=== PATIENT | female | born 1950 | race Caucasian/White ===

== ENCOUNTER 2018-04-12 13:11 | Observation (INO) | payer MEDICARE ==
--- OUTSIDE RECORDS SUMMARY | 2018-04-12 13:40 | XMS REPORT | Continuity of Care Document ---
:1950 External Reference #:[id number] Author Name Aziza Norton M.D. 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 Active thigh Onset: 11/09/2010 Essential hypertension Emilia Martínez M.D. Active Onset: 11/09/2010 Pure hypercholesterolemia Emilia Martínez M.D. Active Onset: 11/09/2010 Vitamin D deficiency Emilia Martínez M.D. Active Onset: 11/09/2010 Tobacco user Emilia Martínez M.D. Active Onset: 11/09/2010 Moderate recurrent major depression Emilia Martínez M.D. Active Onset: 11/09/2010 Intrinsic asthma without status Emilia Martínez M.D. Active asthmaticus Onset: 02/10/2011 Arthralgia of the lower leg Emilia Martínez M.D. Active Onset: 12/27/2011 Colitis, enteritis and Aziza Norton M.D. Active gastroenteritis presumed infectious Onset: 04/15/2015 Acute sinusitis Clifford Alford M.D. Active Onset: 04/15/2015 Bronchitis Clifford Alford M.D. Active Onset: 04/15/2015 Hyperlipidemia Clifford Alford M.D. Active Onset: 05/31/2015 Infectious colitis, enteritis and Aziza Norton M.D. Active gastroenteritis Onset: 06/28/2016 Mild persistent asthma Aziza Norton M.D. Active Onset: 08/02/2016 Gastroesophageal reflux disease Aziza Norton M.D. Active Onset: 08/02/2016 Mixed hyperlipidemia Aziza Norton M.D. Active Onset: 04/12/2018 Gastrointestinal infection Aziza Norton M.D. Active Family History Date Family Member(s) Observation Comments General No fam hx lung, colon CA. Father 82 dt emphysema, smoker. Mother 80. NE. CAD. DM. HTN. Number of Children 2 daughters. 1 in [place], 1 in [place]- DM, s/p bariatric surgery,bipolar. Number of Siblings 3/5 surviving sisters. 2 brothers live in [place], [facility]. First Sister age 68. breast cancer Second Sister dt Brain tumor . Third Sister lives near [place]. Fourth Sister healthy. Lives in [place]. Fifth Sister healthy. Lives in [place]. Social History Type Date Description Comments Sex Unknown Marital Status Patient is . 2003 due to myeloma. Living Situation [place] daughter lives her and 2 granddaughters (youngest daughters kids) patient has custody of the 2 girls. Youngest in granddaughter at [employer]. 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 Tobacco Use Start: Unknown End: Former Cigarette Smoker quit as of July or Unknown August 2017. 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 Tobacco Use Start: Unknown End: Patient is a former Unknown smoker Smoking Status Reviewed: 04/12/18 Patient is a former smoker Exercise Exercises regularly. Type/Frequency Current Uses treadmill weekly. walks a lot, mows lawn with a push mower. some weight lifting (5#)and stretching at home. Allergies, Adverse Reactions, Alerts Date Description Reaction Status Severity Comments 05/19/2009 Tobramycin Active itchy, painful Medications Medication Date Status Form Strength Qnty SIG Indications Ordering Provider Escitalopram 09/21 Active Tablets 5mg 30tab 1 by mouth F17.210 Aziza L. Oxalate s every day Mickie Norton. Diclofenac 09/21 Active Gel 3% 100gm apply small M19.031 Aziza Muniz Sodium amount twice Cierra, daily to M.D. right wrist Advair Diskus 08/02 Active Aerosol 250-50mcg 60uni inhale up to J45.30 Aziza LNallely /2016 /Dose ts two puff by Cierra, mouth twice M.D. daily samples Omeprazole 08/02 Active Capsules 40mg 30cap take [address] miller capsule by [place], mouth once M.D. daily Ketoconazole 06/28 Active Cream 2% 60uni apply thin 110.5 Aziza L. ts layer twice Cierra, a day to M.D. affected area. Hydrocortisone 06/28 Active Cream 0.2% 30gm apply to R23.8 Aziza LNallely Valerate affected Cierra, area twice a M.D. day as needed Vitamin E 05/26 Active Capsules 1000Unit 1 po qd Vitamin D-400 05/26 Active Tablets 400Unit 4 po once daily Calcium 500 + 05/26 Active Tablets 500-600mg 1 po qd Unknown -Unit Famotidine 05/26 Active Tablets 40mg 90tab 1 po daily K21.9 Nehal s at bedtime Kelsie, [employer] Tums 05/26 Active Chewtabs 500mg 90uni 1-2 chew K21.9 Nehal ts tabs every 3 Kelsie, hours as [employer] needed for breakthrough heartburn Budesonide 09/17 Active Caps 3mg 90cap take 3 A09 Sukhi F. Part s capsules by Shallish, mouth once M.D. daily Aspirin Adult 01/05 Active Chewtabs 81mg 1 by mouth Family Low Strength /2013 daily. [facility] Lisinopril 10/01 Active Tablets 5mg 30tab 1 by mouth Aziza L. /2012 s every day Rhina Norton Atorvastatin 02/10 Active Tablets 80mg 90tab take 1 Aziza Muniz Calcium s tablet once Cierra, daily M.D. Multi Vitamin 11/09 Active Tablets Unknown Womens Plus Iron Aleve Active Capsules 220mg 2 po bid Unknown Tylenol Active Tablets 650mg 2 po bid Unknown Arthritis Pain ER Zyrtec Allergy Active Capsules 10mg 1 by mouth Unknown every day Nicotine 09/21 Hx Patches 21mg/24HR 28uni 1 patch F17.210 Aziza Muniz Transdermal 24HR ts topically Cierra System - per day x 1 M.D. 04/12 month. Mupirocin 03/21 Hx Ointment 2% 22gm apply small J31.0 Aziza Muniz amount both Cierra, - nares twice M.D. 09/21 daily. Amoxicillin 11/15 Hx Tablets 875mg 20tab 1 tab twice J01.90 Aziza LNallely s a day x 10 Cierra, - days M.D. 03/21 Amoxicillin 05/26 Hx Tablets 875mg 14tab 1 tab twice J01.90 Nehal /2017 s a day x 7 Kelsie, - days [employer] 06/28 Vitamin D 06/02 Hx Capsules 54949Ydqp 12cap take 1 Aziza Muniz (Ergocalciferol s capsule by Cierra, ) - mouth once M.D. 05/25 weekly for 12 weeks. Zostavax 05/30 Hx Solution 28741Gdp/ 1unit in ject sq Aziza Muniz /2015 Rec 0.65ML s pudt Cierra, - M.D. 05/25 Acetaminophen-C Hx Tablets 300-30mg 60tab 1-2 by mouth M25.561 Aziza Muniz odeine #3 /2015 s at at Cierra, - bedtime for M.D. 05/25 pain /2016 Physical Hx evaluate and M25.561 Aziza Muniz Therapy /2015 treat r knee Cierra, - pain M.D. 05/25 Levofloxacin 04/15 Hx Tablets 500mg 10tab 1 by mouth J01.80 Clifford Juan. /2015 s every day Rocío, - M.D. 05/25 Levofloxacin 08/27 Hx Tablets 500mg 7tabs 1 by mouth 461.9 Victor Manuel A. /2014 every day Vinh - M.D. 09/03 Cefdinir 05/04 Hx Capsules 300mg 20cap 1 by mouth 461.8 Aziza L. /2014 s twice daily Cierra, - for 10days M.D. 07/03 Ketoconazole 05/04 Hx Cream 2% 60uni apply thin 110.5 Aziza L. ts layer twice Cierra, - a day to M.D. 05/25 area. Budesonide ER 05/04 Hx Caps ER 3mg 180ca 3 by mouth A09 Aziza LNallely /2014 24HR ps once daily Cierra - M.D. 09/17 [place] 3 01/05 Hx Capsules 1000mg 1-2 by mouth every day [facility] 07/03 Of Azithromycin 01/05 Hx Tablets 250mg 12tab 2 by mouth 461.1 Aziza L. /2013 s today. 1 by Cierra, - mouth daily M.D. 05/04 x 4 Repeat as necessary Azithromycin 10/07 Hx Tablets 250mg 6tabs 2 po today. Aziza L. /2013 1 po daily x Cierra, - 4 M.D. 01/05 Augmentin 09/29 Hx Tablets 875-125mg 20tab 1 po bid 786.2 Aziza L. s with yogurt Cierra, - or kefir. M.D. 01/05 Ventolin HFA 06/05 Hx Aerosol 108(90Bas 1inha 2 puffs bid 786.2 e) ler x 3 weeks; Kelsie, - mcg/Act also 2 puffs [employer] 04/15 daily to prep for physical exertion Cheratussin ac 06/05 Hx Syrup 100-10mg/ 150ml 5 ml every 786.2 Nehal /2014 5ML 12 hrs prn Kelsie - cough [employer] 09/29 Azithromycin 06/05 Hx Tablets 250mg 9tabs 2 tabs po 786.2 Nehal today, 2 Kelsie, - tabs po [employer] 09/29 tomorrow, then 1 tab po daily x 5 days Omeprazole 04/29 Hx Capsules 20mg 60cap 1 by mouth K21.[address] miller qd- twice a Cierra - day Rhina 08/02 Proair HFA 03/05 Hx Aerosol 108(90Bas 1unit 2 puffs Arleen e) s every 4 Andrade, - mcg/Act hours as [employer] 08/27 needed for cough Lisinopril 09/13 Hx Tablets 10mg 90tab 1 po qd Aziza Muniz Asif Zapata M.D. 10/01 Lisinopril/Hydr 08/09 Hx Tablets 10-12.5mg 45tab Take 1/2 Tab Aziza Muniz ochlorothiazide s Daily Asif Norton M.D. 09/13 Clarithromycin 06/06 Hx Tablets 500mg 20tab 461.8 Aziza Muniz Asif Zapata M.D. 06/06 Meclizine HCL 06/06 Hx Tablets 12.5mg 60tab 1-2 po qid 386.11 Aziza Muniz Asif Zapata M.D. 09/29 Sulfamethoxazol 06/06 Hx Tablets 800-160mg 28tab 1 po bid x 461.8 Aziza Muniz e/ KELLEY Duval.Erick 09/29 Budesonide 12/26 Hx Caps ER 3mg 180ca take 3 009.1 Aziza Muniz 24HR ps capsules Cierra - once daily M.DNallely 05/04 Off Work 11/06 Hx May return Aziza Muniz 11/06-11/09/2011. to work Asif Norton 11/12/2011 M.Erick 12/26 Ondansetron HCL 11/05 Hx Tablets 4mg 1 po q6-8 Family hrs prn for Medicine - nausea/vomit [facility] 12/26 [facility] Hydrocodone/William 11/05 Hx Tablets 5-500mg 60tab 1 po q4-6h Nehal taminophen s prn pain Kelsie, - istop ref# [employer] 09/29 [id number] Avelox 11/05 Hx Tablets 400mg 1 po qd [facility] 06/06 [facility] Off Work Note. 11/05 Hx return to 486 Aziza McmanusNallely Off Work 11/06- work on Cierra - 11/12/2011. Rhina 11/06 Proair HFA 02/10 Hx Aerosol 108(90Bas 1unit 2 puffs Emilia Nallely e) mcg/ac s every 4 Tanya - hours as Rhina 03/05 needed cough Ergocalciferol 02/10 Hx Capsules 21488Jlsd 12cap one po 268.9 Aziza LNallely s weekly Asif Norton M.D. 05/04 Atorvastatin 02/10 Hx Tablets 80mg 30tab 1 po daily 401.9 Emilia Gordon Calcium s Asif Martínez M.D. 12/26 Lisinopril/Hydr 01/29 Hx Tablets 10-12.5mg 90tab Take 1 Emilia M. ochlorothiazide s Tablet By Asif Martínez M.D. 02/10 Budesonide 01/13 Hx Caps ER 3mg 270ca 3 po qd Emilia Gordon 24HR ps Asif Martínez M.D. 12/26 Azithromycin 12/02 Hx Tablets 250mg 13tab take 2 461.9 s tablets by Andrade - mouth x 3d [employer] 02/10 then take tablet daily for next 7 days Robitussin A-C 12/02 Hx 4Oz 1-2 tsp po 461.9 q4h prn Andrade, - cough [employer] 02/10 Ventolin HFA 12/02 Hx Aerosol 108(90Bas 1unit 2 puffs 493.10 e) mcg/ac s qd-qid Andrade, - [employer] 02/10 Chantix Starter 09/14 Hx 1Pack use as 305.1 Emilia M. directed and Tanya - call for M.DNallely 11/05 medication Zithromax 03/04 Hx Tablets 250mg 1tabs 2 po qd 466.0 Emilia M. today , then Tanya - 1 po qd M.DNallely 03/13 times Advair Diskus 03/04 Hx Aerosol 250-50mcg 1unit 1 puff bid 466.0 Emilia M. /Dose s Asif Martínez M.D. 03/04 Flovent HFA 03/04 Hx Aerosol 44mcg/Act 10.60 2 puff bid 466.0 [facility]. 0gm Asif Martínez M.D. 02/10 493.10 Lipitor 01/13/2010 - Hx Tablets 80mg 90tabs 1 po qd Emilia M. 02/10/2011 Rhina Martínez Nicotine 12/31/2009 - Hx Patches 24HR 7mg/24H 28units apply to 30 Emilia Heart. 05/06/2010 R skin in 5. Rhina Martínez the 1 morning and remove at bedtime Prilosec 07/14/2009 - Hx Capsules DR 20mg 60caps 1 po bid Esperanza 12/31/2009 Arnoldo, Charles-C Note 05/19/2009 - Hx pt was [facility] today, will return to work 05/20/09 Ciprofloxacin HCL 05/17/2009 - Hx Solution 0.3% 5ml 2 gtts ou 37 Esperanza 05/26/2009 q 4 hours 2. Arnoldo, until 00 [facility]-[place] clear then 1 more day , do not exceed 1 week use Patanol 05/17/2009 - Hx Solution 0.1% 5ml 2 gtts in 37 Emilia . 05/06/2010 affected 2. Rhina Martínez eye bid 00 prn Guafenesin 05/17/2009 - Hx 600mg 30units 2 po bid 38 Emilia Heart. 07/14/2009 2. Rhina Martínez 9 Tobrex 05/13/2009 - Hx Solution 0.3% 5ml 2 gtts 37 Lisbeth 05/17/2009 both eyes 2. Guzman, q 4 hrs x 00 [facility] 4-5 days Out Of Work 05/13/2009 - Hx out of Lisbeth 05/20/2009 work from Guzman, 05/11 [facility] through 05/16 due to illness; may return 05/17/09 Cortisporin Otic 05/10/2009 - Hx Suspension 1Bottle 4 drops in 38 Emilia Heart 07/14/2009 right ear 2. Rhina Martínez qid for 9 one week Amoxicillin 05/10/2009 - Hx Tablets 500mg 21tabs 1 po tid 38 Emilia 07/14/2009 for 7 days 2Nallely Martínez M.D. 9 Note For Work 05/10/2009 - Hx pt. is ill 38 [facility] 05/06/2010 and was 2Nallely Martínez M.D. seen in 9 the office today, she will follow up in two days and is not to work until then Lisinopril-Hydroc 05/10/2009 - Hx Tablets 10-12.5 45tabs 1/2 tablet 40 Aziza L. hlorothiazide 09/13/2012 mg po qd 1. Al Norton M.D. Diovan HCT 04/27/2009 - Hx Tablets 160-12. 30tabs 1 po daily 71 Emilia . 11/09/2010 5mg 9. Rhina Martínez 46 Flector Patch 12/15/2008 - Hx 30units apply to 71 Emilia . 05/06/2010 painful 9. Rhina Martínez area bid 46 Amoxicillin 10/15/2008 - Hx Tablets 500mg 30tabs 1 tid x 10 46 Lisbeth 10/25/2008 days 5. Guzman, 8 [facility] Abilify 08/07/2008 - Hx Tablets 5mg 30tabs 1/2 po qd Family 05/06/2010 [facility] Ergocalciferol 08/07/2008 - Hx Capsule 50,000U 12caps one po 26 Emilia Heart. 02/10/2011 nits weekly 8Nallely Martínez M.D. 9 Compression 06/23/2008 - Hx 14mm HG 2units to knee, 71 Emilia Gordon Stockings 07/14/2009 wear as 9Nallely Martínez M.D. needed 46 Entocort Ec - Hx Caps ER 24HR 3mg Q Am Unknown 02/10/2011 Diovan HCT - Hx Tablets 160/25m 90tabs 1 po qd Emilia Nallely 04/27/2009 oleg Martínez M.D. Citalopram - Hx Tablets 40mg 1 1/2 PO Unknown Hydrobromide 05/06/2010 qd Loperamide HCL - Hx Capsules 2mg 2 Q Am Unknown 11/09/2010 Diclofenac Sodium - Hx Tablets DR 75mg 1 PO bid Unknown 10/15/2008 Nexium - Hx Packet 40mg 1 Cup 2X Unknown 05/10/2009 Day Lipitor - Hx Tablets 40mg 90tabs [facility]2010 Rhina Martínez Albuterol Sulfate - Hx Powder 1units 2 puffs q Emilia MNallely 12/05/2010 4hrs prn Rhina Martínez Vitamin D - Hx Unknown 02/10/2011 Calcium 600 With - Hx Chewtabs 600-400 1 po qd Unknown Vitamin D 08/27/2014 mg-Unit [place]-3 Krill Oil - Hx Capsules 300mg 2 by mouth Unknown 05/25/2016 every day Immunizations CPT Code Status Date Vaccine Lot # [id number] Given 12/05/2017 High-Dose, Influenza Virus Vacccine-fluzone 65 [id number] and older 34196 Given 11/15/2016 High-Dose, Influenza Virus Vacccine-fluzone 65 [id number] and older 62701 Given 06/03/2015 Zostivax [id number] Given 04/26/2015 Tdap Tetanus, W Pertussis [id number] 81503 Given 11/16/2014 Influenza Vac, Quadrivalent, Slit Virus, Im [id number] 99612 Given 11/16/2014 Pneumococcal Conjugate Vacc-13 [id number] 56415 Given 01/05/2014 Influenza Vac, Quadrivalent, Slit Virus, Im [id number] 73440 Given 03/05/2013 Preservative free flu 3 yrs+ and older [id number] 62661 Given 12/27/2011 Pneumococcal Immunization [id number] 56005 Given 12/27/2011 DO Not Use Split Influenza Virus Vaccine [id number] 36421 Given 11/09/2010 DO Not Use Split Influenza Virus Vaccine [id number] 06588 Given 12/31/2009 DO Not Use Split Influenza Virus Vaccine [id number] Vital Signs Date Vital Result Comment 04/12/2018 10:21am BP Systolic 120 mmHg BP Diastolic 70 mmHg Heart Rate 72 /min Body Temperature 98.0 F Respiratory Rate 18 /min Weight 189.00 lb 02/01/2018 12:01pm BP Systolic 132 mmHg BP Diastolic 76 mmHg Heart Rate 60 /min Body Temperature 97.5 F Height 61 inches 5'1" Weight 182.00 lb BMI (Body Mass Index) 34.4 kg/m2 12/05/2017 12:11pm BP Systolic 158 mmHg BP Diastolic 80 mmHg Heart Rate 60 /min Body Temperature 97.9 F Height 61 inches 5'1" Weight 179.12 lb BMI (Body Mass Index) 33.8 kg/m2 11/08/2017 11:16am BP Systolic 130 mmHg BP Diastolic 78 mmHg Heart Rate 66 /min Body Temperature 97.9 F Respiratory Rate 18 /min Height 61 inches 5'1" Weight 174.00 lb BMI (Body Mass Index) 32.9 kg/m2 09/21/2017 9:42am BP Systolic 122 mmHg BP Diastolic 82 mmHg Heart Rate 60 /min Body Temperature 98.1 F Height 61 inches 5'1" Weight 170.00 lb BMI (Body Mass Index) 32.1 kg/m2 07/19/2017 9:06am BP Systolic 126 mmHg BP Diastolic 84 mmHg Heart Rate 48 /min Body Temperature 97.9 F Respiratory Rate 16 /min Height 61 inches 5'1" Weight 170.00 lb BMI (Body Mass Index) 32.1 kg/m2 03/21/2017 11:30am BP Systolic 138 mmHg BP Diastolic 92 mmHg Heart Rate 54 /min Body Temperature 98.1 F Height 61 inches 5'1" Weight 169.00 lb BMI (Body Mass Index) 31.9 kg/m2 11/15/2016 12:08pm BP Systolic 118 mmHg BP Diastolic 64 mmHg Heart Rate 48 /min Body Temperature 98.6 F Respiratory Rate 16 /min Height 61 inches 5'1" Weight 162.12 lb BMI (Body Mass Index) 30.6 kg/m2 08/02/2016 11:03am BP Systolic 120 mmHg BP Diastolic 70 mmHg Heart Rate 60 /min Body Temperature 98.1 F Respiratory Rate 18 /min Height 61 inches 5'1" Weight 170.00 lb BMI (Body Mass Index) 32.1 kg/m2 06/28/2016 8:58am BP Systolic 120 mmHg BP Diastolic 70 mmHg Heart Rate 80 /min Body Temperature 98.0 F Respiratory Rate 18 /min Height 61 inches 5'1" Weight 170.00 lb BMI (Body Mass Index) 32.1 kg/m2 05/26/2016 9:07am BP Systolic 124 mmHg BP Diastolic 88 mmHg Heart Rate 54 /min Body Temperature 97.9 F Respiratory Rate 16 /min O2 % BldC Oximetry 98 % Height 61 inches 5'1" Weight 172.38 lb BMI (Body Mass Index) 32.6 kg/m2 05/31/2015 12:47pm BP Systolic 130 mmHg BP Diastolic 68 mmHg Heart Rate 56 /min Body Temperature 97.5 F Respiratory Rate 16 /min Height 61 inches 5'1" Weight 173.25 lb BMI (Body Mass Index) 32.7 kg/m2 04/26/2015 5:55pm BP Systolic 146 mmHg BP Diastolic 60 mmHg Heart Rate 56 /min Body Temperature 97.9 F Respiratory Rate 16 /min Height 61 inches 5'1" Weight 177.12 lb BMI (Body Mass Index) 33.5 kg/m2 04/15/2015 9:54am BP Systolic 124 mmHg BP Diastolic 60 mmHg Heart Rate 56 /min Body Temperature 97.1 F Respiratory Rate 18 /min Height 61 inches 5'1" Weight 176.25 lb BMI (Body Mass Index) 33.3 kg/m2 11/16/2014 6:30pm BP Systolic 116 mmHg BP Diastolic 66 mmHg Heart Rate 56 /min Body Temperature 98.5 F Respiratory Rate 16 /min Height 61 inches 5'1" Weight 179.25 lb BMI (Body Mass Index) 33.9 kg/m2 10/12/2014 10:44am BP Systolic 120 mmHg BP Diastolic 70 mmHg Heart Rate 68 /min Body Temperature 98.5 F Respiratory Rate 18 /min Height 61 inches 5'1" Weight 186.00 lb BMI (Body Mass Index) 35.1 kg/m2 08/27/2014 7:04pm BP Systolic 140 mmHg BP Diastolic 80 mmHg Heart Rate 52 /min Body Temperature 98.3 F Respiratory Rate 16 /min O2 % BldC Oximetry 98 % Height 61 inches 5'1" Weight 190.00 lb BMI (Body Mass Index) 35.9 kg/m2 07/03/2014 12:19pm BP Systolic 126 mmHg BP Diastolic 64 mmHg Heart Rate 56 /min Body Temperature 98.4 F Respiratory Rate 16 /min Weight 194.50 lb 05/04/2014 9:04am BP Systolic 130 mmHg BP Diastolic 70 mmHg Heart Rate 58 /min Body Temperature 97.4 F Respiratory Rate 20 /min Height 61 inches 5'1" Weight 194.00 lb BMI (Body Mass Index) 36.7 kg/m2 01/05/2014 6:45pm BP Systolic 130 mmHg BP Diastolic 80 mmHg Heart Rate 56 /min Body Temperature 96.5 F Respiratory Rate 16 /min Height 60.5 inches 5'0.50" Weight 191.00 lb BMI (Body Mass Index) 36.7 kg/m2 09/29/2013 7:01pm BP Systolic 114 mmHg BP Diastolic 60 mmHg Heart Rate 60 /min Body Temperature 99.3 F Respiratory Rate 16 /min Height 60.5 inches 5'0.50" Weight 182.50 lb BMI (Body Mass Index) 35.1 kg/m2 06/05/2013 5:33pm BP Systolic 114 mmHg BP Diastolic 70 mmHg Heart Rate 60 /min Body Temperature 98.5 F Height 60.5 inches 5'0.50" Weight 181.12 lb BMI (Body Mass Index) 34.8 kg/m2 04/29/2013 11:26am BP Systolic 140 mmHg BP Diastolic 70 mmHg Heart Rate 68 /min Body Temperature 97.6 F Respiratory Rate 16 /min Height 60.5 inches 5'0.50" Weight 173.00 lb BMI (Body Mass Index) 33.2 kg/m2 12/05/2012 5:49pm BP Systolic 100 mmHg BP Diastolic 70 mmHg Heart Rate 60 /min Body Temperature 98.0 F Height 60.5 inches 5'0.50" Weight 179.25 lb BMI (Body Mass Index) 34.4 kg/m2 09/26/2012 3:18pm BP Systolic 100 mmHg BP Diastolic 60 mmHg Heart Rate 60 /min Height 60.5 inches 5'0.50" Weight 173.00 lb BMI (Body Mass Index) 33.2 kg/m2 06/06/2012 12:09pm BP Systolic 108 mmHg BP Diastolic 60 mmHg Heart Rate 56 /min Body Temperature 98.4 F Respiratory Rate 16 /min Height 60.5 inches 5'0.50" Weight 164.38 lb BMI (Body Mass Index) 31.6 kg/m2 12/27/2011 10:06am BP Systolic 110 mmHg BP Diastolic 60 mmHg Heart Rate 60 /min Height 60.5 inches 5'0.50" Weight 154.00 lb BMI (Body Mass Index) 29.6 kg/m2 Right Visual Acuity Distance 20/30 Corrected Left Visual Acuity Distance 20/25 11/06/2011 6:12pm BP Systolic 118 mmHg BP Diastolic 60 mmHg Heart Rate 78 /min Body Temperature 99.7 F Height 60.5 inches 5'0.50" Weight 157.00 lb BMI (Body Mass Index) 30.2 kg/m2 05/26/2011 10:42am BP Systolic 114 mmHg BP Diastolic 64 mmHg Heart Rate 60 /min Body Temperature 98.6 F Height 60.5 inches 5'0.50" Weight 173.00 lb BMI (Body Mass Index) 33.2 kg/m2 02/10/2011 10:20am BP Systolic 124 mmHg BP Diastolic 68 mmHg Heart Rate 60 /min Body Temperature 98.2 F Height 60.5 inches 5'0.50" Weight 185.00 lb BMI (Body Mass Index) 35.5 kg/m2 12/02/2010 5:07pm BP Systolic 118 mmHg BP Diastolic 78 mmHg Heart Rate 50 /min Body Temperature 97.1 F O2 % BldC Oximetry 98 % Height 60.5 inches 5'0.50" Weight 185.00 lb BMI (Body Mass Index) 35.5 kg/m2 11/09/2010 9:59am BP Systolic 100 mmHg BP Diastolic 68 mmHg Heart Rate 56 /min Body Temperature 97.1 F Height 60.5 inches 5'0.50" Weight 186.00 lb BMI (Body Mass Index) 35.7 kg/m2 05/06/2010 9:02am BP Systolic 108 mmHg BP Diastolic 60 mmHg Heart Rate 60 /min Body Temperature 98.4 F Respiratory Rate 14 /min Height 60.5 inches 5'0.50" Weight 204.00 lb BMI (Body Mass Index) 39.2 kg/m2 03/04/2010 3:57pm BP Systolic 110 mmHg BP Diastolic 64 mmHg Heart Rate 56 /min Body Temperature 99.1 F O2 % BldC Oximetry 98 % Height 60.5 inches 5'0.50" Weight 202.00 lb BMI (Body Mass Index) 38.8 kg/m2 12/31/2009 10:19am BP Systolic 124 mmHg BP Diastolic 80 mmHg Heart Rate 68 /min Height 60.5 inches 5'0.50" Weight 206.00 lb BMI (Body Mass Index) 39.6 kg/m2 08/24/2009 9:08am BP Systolic 130 mmHg BP Diastolic 70 mmHg Heart Rate 60 /min Body Temperature 97.6 F Height 60.5 inches 5'0.50" Weight 206.00 lb BMI (Body Mass Index) 39.6 kg/m2 07/14/2009 6:21pm BP Systolic 106 mmHg BP Diastolic 60 mmHg Heart Rate 68 /min Body Temperature 98.8 F Height 60.5 inches 5'0.50" Weight 204.00 lb BMI (Body Mass Index) 39.2 kg/m2 05/19/2009 1:02pm BP Systolic 120 mmHg BP Diastolic 60 mmHg Heart Rate 60 /min Body Temperature 99.3 F Height 60.5 inches 5'0.50" Weight 194.00 lb BMI (Body Mass Index) 37.3 kg/m2 05/17/2009 1:40pm BP Systolic 134 mmHg BP Diastolic 62 mmHg Body Temperature 97.9 F Weight 199.00 lb 05/13/2009 10:16am BP Systolic 138 mmHg BP Diastolic 62 mmHg Heart Rate 80 /min Body Temperature 100.0 F 05/10/2009 4:56pm BP Systolic 110 mmHg BP Diastolic 62 mmHg Heart Rate 80 /min Body Temperature 98.0 F Respiratory Rate 18 /min Weight 199.00 lb 04/27/2009 11:40am BP Systolic 100 mmHg BP Diastolic 60 mmHg Heart Rate 60 /min Weight 200.00 lb 03/02/2009 10:42am BP Systolic 120 mmHg BP Diastolic 78 mmHg Heart Rate 76 /min Respiratory Rate 18 /min Height 60.5 inches 5'0.50" Weight 195.00 lb BMI (Body Mass Index) 37.5 kg/m2 12/15/2008 8:54am BP Systolic 108 mmHg BP Diastolic 74 mmHg Heart Rate 60 /min Body Temperature 98.8 F Respiratory Rate 16 /min Weight 198.00 lb 10/15/2008 11:13am BP Systolic 118 mmHg BP Diastolic 62 mmHg Heart Rate 66 /min Body Temperature 99.0 F O2 % BldC Oximetry 97 % Height 60.5 inches 5'0.50" Weight 203.00 lb BMI (Body Mass Index) 39.0 kg/m2 08/07/2008 9:52am BP Systolic 132 mmHg BP Diastolic 82 mmHg Heart Rate 56 /min Body Temperature 97.3 F Respiratory Rate 16 /min Height 60.5 inches 5'0.50" Weight 196.00 lb BMI (Body Mass Index) 37.6 kg/m2 06/23/2008 9:14am BP Systolic 110 mmHg BP Diastolic 70 mmHg Heart Rate 72 /min Body Temperature 98.2 F Height 60.75 inches 5'0.75" Weight 194.00 lb BMI (Body Mass Index) 37.0 kg/m2 Results Test Date Facility Test Result H/L Range Note Ua - Non Micro (Fma) 07/19/2017 [facility] Medicine Appearance clear (607)- - Color yellow Glucose, Urine (Fma/CMC/CTX) negative Bilirubin negative Ketones negative SP Grav <=1.005 Blood negative PH 5.5 Protein negative Urobil 0.2 Nitrite negative Leukocytes (Fma/[facility]/Centrex) negative Laboratory test 06/28/2016 [facility] C-Reactive 0.6 mg/L 0.0-4.9 1 finding [address] [facility] Protein, [place] [address] (607)- - Laboratory test 06/28/2016 Montano Arelis (a) TSH 1.71 0.50-6.00 finding mIU/L Comprehensive 06/28/2016 Montano Arelis (a) Sodium 141 mEq/L 134-149 Metabolic Prof Potassium 5.0 mEq/L 3.6-5.5 Chloride 104 mEq/L 94-112 Carbon Dioxide 28 mEq/L 21-32 Glucose 98 mg/dL 70-105 BUN 17 mg/dL 6-26 Creatinine 0.6 mg/dL 0.6-1.4 BUN/Creat Ratio 28.3 CALC 8.0-36.0 Calcium 9.6 mg/dL 8.6-10.2 Total Protein 7.6 g/dL 6.4-8.3 Albumin 4.6 g/dL 3.8-5.5 Globulin 3.0 g/dL 2.0-4.8 A/G Ratio 1.5 CALC 0.6-2.3 Alk. Phosphatase 42 U/L 30-110 Alt (SGPT) 15 U/L 7-35 Ast (Sgot) 13 U/L 5-34 Total Bilirubin 0.3 mg/dL 0.2-1.3 GFR Non- >60 ml/min/1.73m^ >=60 GFR >60 ml/min/1.73m^ >=60 Lipid Profile 06/28/2016 Dusty Infante ([facility]) Cholesterol 165 mg/dL 120- 200 Triglycerides 161 mg/dL 30-200 HDL Cholesterol 47 mg/dL 30-85 LDL (Calculated) 86 CALC 0-129 VLDL Cholesterol 32 mg/dL 0-50 HDL Risk Factor 3.5 CALC 0.0-4.4 Laboratory test 06/28/2016 Dusty Infante ([facility]) Free T4 0.82 ng/dL 0.75- 1.54 finding Complete Blood Count 06/28/2016 Dusty Infante ([facility]) WBC 4.6 x10^3/UL 3.6-9.6 RBC 4.37 x10^6/UL 3.90-5.70 HGB 14.0 g/dL 12.1-17.2 HCT 42 % 36-50 MCV 96.0 fL 82.2-97.4 MCH 32.1 pg 27.6-33.3 MCHC 33.6 g/dL 33.0-35.5 RDW 14.2 % High 11.6-13.7 PLT 233 x10^3/UL 150-400 MPV 8.4 fL 7.4-10.4 Gran # 2.7 x10^3/UL 1.5-7.2 Lymph# 1.8 x10^3/UL 0.7-4.9 Houghton# 0.1 x10^3/UL 0.1-0.9 Gran % 55.5 % 42.2-75.2 Lymph % 41.2 % 20.5-51.1 Houghton% 3.3 % 1.7-9.3 Laboratory test 05/31/2015 Dusty Infante ([facility]) Vitamin D25 24 Low 30- 100 finding Laboratory test 05/04/2015 [facility] Sedimentation Rate 7 finding (607)- - CBC Electronic 05/04/2015 [facility] WBC 6.4 3.6-9.6 (a) (607)- - RBC 4.05 3.90-5.70 Hemoglobin (Fma/CMC/CTX) 13.1 g/dL 12.1 - 17.2 Hematocrit (Fma/CMC/CTX) 39.6 % 36.1 - 50.3 Platelets 240 10^3/ul 150-400 Lymph% 35.2 % 17.0-48.0 Mixed% 2.8 Neutrophils % 62.0 Mean Corpuscular Vol 98 High 82.2-97.4 Mean Corpuscular Hemoglobin 32.4 27.6-33.3 Mean Corpuscular Hemo Concen 33.1 32.0-36.0 RDW 14.1 High 11.6-13.7 Mean Platelet Volume 7.6 5.5-11.0 Comprehensive Metabolic 05/04/2015 Mnotano Arelis (a) Sodium 139 mEq/L 134-149 Prof Potassium 4.1 mEq/L 3.6-5.5 Chloride 102 mEq/L 94-112 Carbon Dioxide 29 mEq/L 21-32 Glucose 77 mg/dL 70-105 BUN 20 mg/dL 6-26 Creatinine 0.7 mg/dL 0.6-1.4 BUN/Creat Ratio 28.6 CALC 8.0-36.0 Calcium 9.6 mg/dL 8.6-10.2 Total Protein 7.6 g/dL 6.4-8.3 Albumin 4.5 g/dL 3.8-5.5 Globulin 3.1 g/dL 2.0-4.8 A/G Ratio 1.5 CALC 0.6-2.3 Alk. Phosphatase 36 U/L 30-110 Alt (SGPT) 17 U/L 7-35 Ast (Sgot) 17 U/L 5-34 Total Bilirubin 0.2 mg/dL 0.2-1.3 GFR Non- >60 ml/min/1.73m^ >=60 GFR >60 ml/min/1.73m^ >=60 Koki Panel-LD 05/04/2015 [facility] Antinuclear Negative 2, 3 ([facility]) [address] Antibodies, [place] [address] (607)- - Anti-dsDNA Antibodies <1 IU/mL 0-9 4 Hla B 27 Disease Association Negative 5 Sjogren's AB, 05/04/2015 [facility] Sjogren's <0.2 AI 0.0-0.9 Anti-SS-A/-SS-B [address] [facility] [place] [address] (607)- - Sjogren's Anti-SS-B <0.2 AI 0.0-0.9 Rheumatoid Arthritis 05/04/2015 [facility] Ra Latex 7.8 IU/mL 0.0-13.9 Factor ([facility]) [address] [facility] [place] [address] (602)- - Antiextractable 05/04/2015 [facility] [employer]ATOR Antibodies <0.2 AI 0.0-0.9 Nuclear Antigens [address] [place] [phone] (608)- - Diego Antibodies <0.2 AI 0.0-0.9 CCP Abs Igg/Iga 05/04/2015 [facility] CCP Antibodies 5 units 0-[address] [place] [address] IgG/[place] [address] (591)- - Laboratory test 12/08/2014 [facility] Surgical SEE RESULT 7 finding Pathology BELOW Laboratory test 08/28/2014 [facility] Stool Culture SEE RESULT 8, 9 finding BELOW Laboratory test 08/28/2014 [facility] O&P: SEE RESULT 10 finding Giardia/Cryptosp BELOW or Screen Fecal Fat 08/28/2014 [facility] Fecal Fat, Total 1 g N Weight Fecal Fat, Collection Duration Random h N 11 Stool Fat % 28 %fat Abnormal < 20 12 Surgical Pathology 05/06/2014 [facility] S RUN DATE: <SEE NOTE> Complete Blood Count 05/04/2014 Montano Arelis ([facility]) WBC 8.0 x10^3/UL 3.6-9.6 RBC 4.03 x10^6/UL 3.90-5.70 HGB 13.0 g/dL 12.1-17.2 HCT 38 % 36-50 MCV 95.0 fL 82.2-97.4 MCH 32.4 pg 27.6-33.3 MCHC 34.0 g/dL 33.0-35.5 RDW 11.9 % 11.6-13.7 PLT 232 x10^3/UL 150-400 MPV 8.9 fL 7.4-10.4 Gran # 5.5 x10^3/UL 1.5-7.2 Lymph# 2.3 x10^3/UL 0.7-4.9 Houghton# 0.2 x10^3/UL 0.1-0.9 Gran % 67.0 % 42.2-75.2 Lymph % 29.7 % 20.5-51.1 Houghton% 3.3 % 1.7-9.3 Comprehensive Metabolic 05/04/2014 Dusty Infante ([facility]) Sodium 143 mEq/L 134-149 Prof Potassium 3.8 mEq/L 3.6-5.5 Chloride 107 mEq/L 94-112 Carbon Dioxide 26 mEq/L 21-32 Glucose 90 mg/dL 70-105 BUN 17 mg/dL 6-26 Creatinine 0.7 mg/dL 0.6-1.4 BUN/Creat Ratio 24.3 CALC 8.0-36.0 Calcium 9.2 mg/dL 8.6-10.2 Total Protein 6.9 g/dL 6.4-8.3 Albumin 4.2 g/dL 3.8-5.5 Globulin 2.7 g/dL 2.0-4.8 A/G Ratio 1.6 CALC 0.6-2.3 Alk. Phosphatase 45 U/L 30-110 Alt (SGPT) 23 U/L 7-35 Ast (Sgot) 19 U/L 5-34 Total Bilirubin 0.3 mg/dL 0.2-1.3 Lipid Profile 05/04/2014 Dusty Infante ([facility]) Cholesterol 165 mg/dL 120- 200 Triglycerides 202 mg/dL High 30-200 HDL Cholesterol 47 mg/dL 30-85 LDL (Calculated) 78 CALC 0-129 VLDL Cholesterol 40 mg/dL 0-50 HDL Risk Factor 3.5 CALC 0.0-4.4 Laboratory test 05/04/2014 Dusty Infante ([facility]) Free T3 2.60 pg/mL 2.00- 4.90 14 finding Free T4 0.92 ng/dL 0.75-1.54 Vitamin D25 33 30-100 TSH 4.04 mIU/L 0.50-6.00 Ua - Non Micro (a) 05/04/2014 [facility] Appearance clear (607)- - Color yellow Glucose, Urine (Fma/CMC/CTX) - Bilirubin - Ketones - SP Grav 1.015 Blood - PH 5.5 Protein - Urobil 0.2 Nitrite - Leukocytes (Fma/CMC/[facility]) - Ua - Non Micro (Fma) 04/29/2013 [facility] Appearance CLEAR (607)- - Color YELLOW Glucose NEGATIVE Bilirubin NEGATIVE Ketones NEGATIVE SP Grav 1.010 Blood NEGATIVE PH 6.0 Protein NEGATIVE Urobil 0.2 Nitrite NEGATIVE Leukocytes ([facility]ma/CMC/[facility]) NEGATIVE Comprehensive Metabolic 04/25/2013 Montano Arelis (a) Sodium 136 mEq/L 134-149 Prof Potassium 3.8 mEq/L 3.6-5.5 Chloride 97 mEq/L 94-112 Carbon Dioxide 24 mEq/L 21-32 Glucose 90 mg/dL 70-105 BUN 16 mg/dL 6-26 Creatinine 0.7 mg/dL 0.6-1.4 BUN/Creat Ratio 22.9 CALC 8.0-36.0 Calcium 9.6 mg/dL 8.6-10.2 Total Protein 7.5 g/dL 6.3-8.1 Albumin 4.5 g/dL 3.8-5.5 Globulin 3.0 g/dL 2.0-4.8 A/G Ratio 1.5 CALC 0.6-2.3 Alk. Phosphatase 48 U/L 30-110 Alt (SGPT) 14 U/L 7-35 Ast (Sgot) 14 U/L 5-34 Total Bilirubin 0.4 mg/dL 0.2-1.3 Lipid Profile 04/25/2013 Montano Arelis (a) Cholesterol 233 mg/dL High 120-200 Triglycerides 194 mg/dL 30-200 HDL Cholesterol 46 mg/dL 30-85 LDL (Calculated) 148 CALC High 0-129 VLDL Cholesterol 39 mg/dL 0-50 HDL Risk Factor 5.1 CALC High 0.0-4.4 Laboratory test 04/25/2013 Montano Arelis (a) Vitamin D25 20 Low 30- 100 15 finding Complete Blood 04/25/2013 Montano Arelis (a) WBC 5.2 3.6-9.6 Count x10^3/UL RBC 4.23 x10^6/UL 3.90-5.70 HGB 13.4 g/dL 12.1-17.2 HCT 40 % 36-50 MCV 94.0 fL 82.2-97.4 MCH 31.7 pg 27.6-33.3 MCHC 33.7 g/dL 33.0-35.5 RDW 12.4 % 11.6-13.7 PLT 203 x10^3/UL 150-400 MPV 8.8 fL 7.4-10.4 Gran # 2.9 x10^3/UL 1.5-7.2 Lymph# 2.1 x10^3/UL 0.7-4.9 Houghton# 0.2 x10^3/UL 0.1-0.9 Gran % 54.2 % 42.2-75.2 Lymph % 40.8 % 20.5-51.1 Houghton% 5.0 % 1.7-9.3 Laboratory test finding 04/25/2013 Dusty Arelis ([facility]) TSH 3.35 mIU/L 0.50-6.00 Comprehensive Metabolic 06/06/2012 Dusty Arelis ([facility]) Albumin 4.8 g/dL 3.8-5.5 Prof Alk. Phos. 54 U/L 30-110 Alt (SGPT) 18 U/L 7-35 Ast (Sgot) 16 U/L 5-34 BUN 23 mg/dL 6-26 Calcium 9.5 mg/dL 8.6-10.2 Chloride 102 mEq/L 94-112 Creatinine 0.7 mg/dL 0.6-1.4 Carbon Dioxide 25 mEq/L 21-32 Glucose 96 mg/dL 70-105 Sodium 141 mEq/L 134-149 Total Bilirubin 0.3 mg/dL 0.2-1.3 Total Protein 7.2 g/dL 6.3-8.1 Potassium 3.8 mEq/L 3.6-5.5 Globulin 2.3 g/dL 2.0-4.8 A/G Ratio 2.1 Calc 0.6-2.3 BUN/Creat Ratio 30.9 Calc 8.0-36.0 Laboratory test 06/06/2012 Dusty Arelis ([facility]) Free T4 0.92 ng/dL 0.75- 1.54 finding TSH 1.26 mIU/L 0.50-6.00 B12 237 pg/mL 230-1050 Folate 20.36 ng/mL High 3.00-16.00 Iron & Iron Binding Capacity 06/06/2012 [facility] Iron 70 g/dL 28-170 Unsaturated Iron Binding 305 g/dL Total Iron Binding Capacity 375 g/dL 250-450 % Iron Saturation 19 % 15-55 Vitamin D, 25 Hydroxy 06/06/2012 [facility] 25-Hydroxy Vitamin D2 33 ng/mL 25-Hydroxy Vitamin D3 5.6 ng/mL 25-Hydroxy Vitamin D Total 39 ng/mL 16 CBC Electronic (a) 06/06/2012 [facility] Medicine WBC 8.6 3.6-9.6 (607)- - RBC 4.32 3.90-5.70 Hemoglobin (Fma/CMC/CTX) 13.9 g/dL 12.1 - 17.2 Hematocrit (a/CMC/CTX) 40.9 % 36.1 - 50.3 Platelets 223 10^3/ul 150-400 Lymph% 23.9 20.5-51.1 Mixed% 3.9 Neutrophils % 72.2 Mean Corpuscular Vol 95 82.2-97.4 Mean Corpuscular Hemoglobin 32.1 27.6-33.3 Mean Corpuscular Hemo Concen 34.0 32.0-36.0 RDW 14.0 High 11.6-13.7 Mean Platelet Volume 8.2 6.5-11.0 CBC No Diff 01/22/2012 [facility] White Blood Count 5.3 10^3/uL 4.8-10.8 Red Blood Count 3.81 10^6/uL Low 4.0-5.4 Hemoglobin 12.4 g/dL 12.0-16.0 Hematocrit 36 % 35-47 Mean Corpuscular Volume 95 fL 80-97 Mean Corpuscular Hemoglobin 33 pg High 27-31 Mean Corpuscular HGB Conc 34 g/dL 31-36 Red Cell Distribution Width 14 % 10.5-15 Platelet Count 185 10^3/uL 150-450 Mean Platelet Volume 10 um3 7.4-10.4 Comp Metabolic Panel 01/22/2012 [facility] Sodium 140 mmol/L 133-145 Potassium 3.6 mmol/L 3.5-5.0 Chloride 107 mmol/L 101-111 Co2 Carbon Dioxide 26.0 mmol/L 22-32 Anion Gap 7.0 mmol/L 2-11 Glucose 85 mg/dL 70-100 Blood Urea Nitrogen 16 mg/dL 6-24 Creatinine 0.80 mg/dL 0.50-1.40 BUN/Creatinine Ratio 20.0 8-20 Calcium 9.1 mg/dL 8.1-9.9 Total Protein 5.6 GM/DL Low 6.2-8.1 Albumin 3.7 GM/DL 3.2-5.2 Globulin 1.9 GM/DL Low 2-4 Albumin/Globulin Ratio 1.9 1-3 Total Bilirubin 0.6 mg/dL 0.1-1.0 17 Alkaline Phosphatase 27 U/L Low 30-110 Alt 18 U/L 14-54 Ast 18 U/L 12-42 Egfr Non- 73.2 >60 Egfr 94.1 >60 18 Ua - Non Micro (a) 01/03/2012 [facility] Appearance CLEAR (607)- - Color YELLOW Glucose NEG Bilirubin NEG Ketones NEG SP Grav 1.020 Blood NEG PH 7.0 Protein NEG Urobil 0.2 Nitrite NEG Leukocytes (a/[facility]) NEG Laboratory test 12/27/2011 [facility] Cytology RUN DATE: finding <SEE NOTE> Human Papilloma Virus 12/27/2011 [facility] Human Papillomavirus CERV Source Human Papillomavirus High Risk Negative Negative 20 Laboratory test 12/27/2011 [facility] Cytology RUN DATE: finding <SEE NOTE> Lipid Profile 12/27/2011 Montano Arelis (a) Cholesterol 184 mg/dL 120- 200 HDL 43 mg/dL 30-85 Triglycerides 164 mg/dL 30-200 HDL Risk Factor 4.3 CALC 0.0-4.4 LDL (Calculated) 108 CALC 0-129 VLDL (Calculated) 33 mg/dL 0-50 Laboratory test 12/27/2011 Montano Arelis (a) Creatine Kinase 85 U/L 26-140 finding Comprehensive 12/27/2011 Montano Arelis (a) Albumin 5.0 g/dL 3.8-5.5 Metabolic Prof Alk. Phos. 36 U/L 30-110 Alt (SGPT) 17 U/L 7-35 Ast (Sgot) 16 U/L 5-34 BUN 17 mg/dL 6-26 Calcium 9.6 mg/dL 8.6-10.2 Chloride 97 mEq/L 94-112 Creatinine 0.7 mg/dL 0.6-1.4 Carbon Dioxide 28 mEq/L 21-32 Glucose 90 mg/dL 70-105 Sodium 138 mEq/L 134-149 Total Bilirubin 0.5 mg/dL 0.2-1.3 Total Protein 7.2 g/dL 6.3-8.1 Potassium 4.5 mEq/L 3.6-5.5 Globulin 2.3 g/dL 2.0-4.8 A/G Ratio 2.2 Calc 0.6-2.2 BUN/Creat Ratio 24.9 Calc 8.0-36.0 Laboratory test 12/27/2011 [facility] Vitamin D, 32.3 30.0-100.0 22 finding [address] [facility] [address] Oh ng/[place] [address] [phone] Comprehensive 06/16/2011 Montano Arelis ([facility]) Albumin 5.1 g/dL 3.8-5.5 Metabolic Prof Alk. Phos. 42 U/L 30-110 Alt (SGPT) 19 U/L 7-35 Ast (Sgot) 19 U/L 5-34 BUN 21 mg/dL 6-26 Calcium 9.8 mg/dL 8.6-10.2 Chloride 101 mEq/L 94-112 Creatinine 0.8 mg/dL 0.6-1.4 Carbon Dioxide 23 mEq/L 21-32 Glucose 103 mg/dL 70-105 Sodium 137 mEq/L 134-149 Total Bilirubin 0.6 mg/dL 0.2-1.3 Total Protein 7.8 g/dL 6.3-8.1 Potassium 3.9 mEq/L 3.6-5.5 Globulin 2.6 g/dL 2.0-4.8 A/G Ratio 1.9 Calc 0.6-2.2 BUN/Creat Ratio 25.6 Calc 8.0-36.0 Lipid Profile 06/16/2011 Montano Arelis ([facility]) Cholesterol 267 mg/dL High 120-200 HDL 48 mg/dL 30-85 Triglycerides 198 mg/dL 30-200 HDL Risk Factor 5.6 CALC High 0.0-4.0 LDL (Calculated) 180 CALC High 0-129 VLDL (Calculated) 40 mg/dL 0-50 Laboratory test 06/16/2011 [facility] Vitamin D, 23.7 ng/mL Low 30.0-100.0 23 finding [address] [facility] [address] [place] [address] [phone] Basic Metabolic 12/03/2010 Montano Arelis ([facility]) BUN 14 mg/dL 6-26 Profile Calcium 9.9 mg/dL 8.6-10.2 Chloride 110 mEq/L 94-112 Creatinine 0.8 mg/dL 0.6-1.4 Carbon Dioxide 22 mEq/L 21-32 Glucose 107 mg/dL High 70-105 24 Sodium 144 mEq/L 134-149 Potassium 4.8 mEq/L 3.6-5.5 BUN/Creat Ratio 17.1 Calc 8.0-36.0 Laboratory test 12/03/2010 Dusty Infante ([facility]) TSH 1.63 mIU/L 0.50- 6.00 finding Lipid Profile 12/03/2010 Dusty Infante (a) Cholesterol 164 mg/dL 120- 200 HDL 46 mg/dL 30-85 Triglycerides 218 mg/dL High 30-200 HDL Risk Factor 3.6 CALC 0.0-4.0 LDL (Calculated) 75 CALC 0-129 VLDL (Calculated) 44 mg/dL 0-50 Laboratory test 12/03/2010 [facility] Vitamin D, 15.7 Low 32.0-100.0 25 finding [address] [facility] [address] Oh ng/mL [place], [place] [id number] [phone] Laboratory test 05/06/2010 [facility] Vitamin D, 18.0 Low 32.0-100.0 26 finding [address] [facility] [address] Oh ng/mL [place], [place] [id number] [phone] Comprehensive 05/06/2010 Dusty Infante ([facility]) Albumin 4.7 g/dL 3.8-5.5 Metabolic Prof Alk. Phos. 52 U/L 30-110 Alt (SGPT) 34 U/L 7-35 Ast (Sgot) 22 U/L 5-34 BUN 27 mg/dL High 6-26 27 Calcium 9.4 mg/dL 8.6-10.2 Chloride 103 mEq/L 94-112 Creatinine 0.7 mg/dL 0.6-1.4 Carbon Dioxide 21 mEq/L 21-32 Glucose 103 mg/dL 70-105 Sodium 145 mEq/L 134-149 Total Bilirubin 0.3 mg/dL 0.2-1.3 Total Protein 7.5 g/dL 6.3-8.1 Potassium 4.0 mEq/L 3.6-5.5 Globulin 2.7 g/dL 2.0-4.8 A/G Ratio 1.7 Calc 0.6-2.2 BUN/Creat Ratio 40.4 Calc High 8.0-36.0 Laboratory test 05/06/2010 Dusty Arelis (a) TSH 5.13 mIU/L 0.50- 6.00 finding Lipid Profile 05/06/2010 Montano Arelis (a) Cholesterol 229 mg/dL High 120-200 HDL 40 mg/dL 30-85 Triglycerides 168 mg/dL 30-200 HDL Risk Factor 5.7 CALC High 0.0-4.0 LDL (Calculated) 155 CALC High 0-129 VLDL (Calculated) 34 mg/dL 0-50 Ua - Non Micro (a) 05/06/2010 [facility] Medicine Appearance CLEAR (607)- - Color YELLOW Glucose, Urine (Fma/CMC/CTX) NEG Bilirubin NEG Ketones NEG SP Grav 1.020 Blood NEG PH 5.5 Protein NEG Urobil 0.2 Nitrite NEG Leukocytes (a/[facility]) NEG Laboratory test 05/06/2010 [facility] Hemoglobin A1c 5.7 % 4.1-5.7 finding (607)- - (Fma/CMC,CX) Laboratory test 01/10/2010 [facility] Homocysteine 6.7 umol/L 0.0-15.0 finding 28 [place] [id number] [phone] Vitamin D, 25 Oh 13.7 ng/mL Low 32.0-100.0 28 CBC ([facility]) 01/10/2010 [facility] WBC 5.8 3.6-9.6 (607)- - RBC 4.58 3.90-5.70 Hemoglobin (Fma/CMC/CTX) 14.4 g/dL 12.1 - 17.2 Hematocrit (a/CMC/CTX) 43.1 % 36.1 - 50.3 Platelets 225 10^3/ul 150-400 Lymph% 32.2 20.5-51.1 Mixed% 3.7 Neutrophils % 64.1 Mean Corpuscular Vol 94 82.2-97.4 Mean Corpuscular Hemoglobin 31.4 27.6-33.3 Mean Corpuscular Hemo Concen 33.3 33.0-36.0 RDW 12.6 11.6-13.7 Mean Platelet Volume 8.8 7.4-10.4 Lipid Profile 01/10/2010 Dusty Infante (a) Cholesterol 254 mg/dL High 120-200 HDL 44 mg/dL 30-85 Triglycerides 136 mg/dL 30-200 HDL Risk Factor 5.7 CALC 4.2-7.0 LDL (Calculated) 183 CALC High 0-129 VLDL (Calculated) 27 mg/dL 0-50 Comprehensive Metabolic 01/10/2010 Montano Arelis (a) Albumin 4.4 g/dL 3.8-5.5 Prof Alk. Phos. 59 U/L 30-110 Alt (SGPT) 24 U/L 7-35 Ast (Sgot) 17 U/L 5-34 BUN 21 mg/dL 6-26 Calcium 8.9 mg/dL 8.6-10.2 Chloride 102 mEq/L 94-112 Creatinine 0.7 mg/dL 0.6-1.4 Carbon Dioxide 23 mEq/L 21-32 Glucose 106 mg/dL High 70-105 29 Sodium 140 mEq/L 134-149 Total Bilirubin 0.3 mg/dL 0.2-1.3 Total Protein 7.1 g/dL 6.3-8.1 Potassium 4.1 mEq/L 3.6-5.5 Globulin 2.7 g/dL 2.0-4.8 A/G Ratio 1.7 Calc 0.6-2.2 BUN/Creat Ratio 29.8 Calc 8.0-36.0 Ua - Micro (a) 08/24/2009 [facility] Appearance CLEAR (607)- - Color YELLOW Glucose NEG Bilirubin NEG Ketones NEG SP Grav 1.015 Blood NEG PH 6.0 Protein NEG Urobil 0.2 Nitrite NEG Leukocytes (Fma/[facility]) TRACE # Hyaline - /Lpf Granular - /Lpf WBC (Fma,[facility]) 2-3 RBC 1-2 Mucus - /Lpf Epith RARE /Lpf Bacteria RARE /Hpf Amorphous - /Lpf Crystals, Fluid (Fma/CMC/CTX) - Z#Comments - Lipid Profile 12/08/2008 Montano Arelis (a) Cholesterol 155 mg/dL 120- 200 30 HDL 36 mg/dL 30-85 Triglycerides 146 mg/dL 30-200 HDL Risk Factor 4.3 CALC 4.2-7.0 LDL (Calculated) 90 CALC 0-129 VLDL (Calculated) 29 mg/dL 0-50 Comprehensive Metabolic 12/08/2008 Montano Arelis (a) Albumin 4.5 g/dL 3.8-5.5 Prof Alk. Phos. 48 U/L 30-110 Alt (SGPT) 23 U/L 7-35 Ast (Sgot) 16 U/L 5-34 BUN 23 mg/dL 6-26 Calcium 9.7 mg/dL 8.6-10.2 Chloride 105 mEq/L 94-112 Creatinine 0.8 mg/dL 0.6-1.4 Carbon Dioxide 27 mEq/L 21-32 Glucose 90 mg/dL 70-105 Sodium 143 mEq/L 134-149 Total Bilirubin 0.4 mg/dL 0.2-1.3 Total Protein 6.9 g/dL 6.3-8.1 Potassium 4.5 mEq/L 3.6-5.5 Globulin 2.4 g/dL 2.0-4.8 A/G Ratio 1.9 Calc 0.6-2.2 BUN/Creat Ratio 27.7 Calc 8.0-36.0 Laboratory test 12/08/2008 [facility] Vitamin D, 25 23.6 Low 32.0-100.0 31 finding 28 [facility] Oh ng/[place] [address] [phone] Ua - Non Micro 08/07/2008 [facility] Appearance clear (Fma) (607)- - Color yellow Glucose neg Bilirubin neg Ketones neg SP Grav 1.010 Blood neg PH 6.0 Protein neg Urobil 0.2 Nitrite neg Leukocytes (Fma/[facility]) neg Laboratory test 08/07/2008 [facility] Thin Prep SEE NOTE 32 finding [address] [facility] [address] [place] W/[place] [address] [phone] Comprehensive 07/14/2008 Montano Arelis ([facility]) Albumin 4.2 g/dL 3.8-5. Metabolic Prof 5 Alk. Phos. 46 U/L 30-110 Alt (SGPT) 29 U/L 7-35 Ast (Sgot) 20 U/L 5-34 BUN 18 mg/dL 6-26 Calcium 8.7 mg/dL 8.6-10.2 Chloride 103 mEq/L 94-112 Creatinine 0.9 mg/dL 0.6-1.4 Carbon Dioxide 25 mEq/L 21-32 Glucose 89 mg/dL 70-105 Sodium 139 mEq/L 134-149 Total Bilirubin 0.4 mg/dL 0.2-1.3 Total Protein 6.6 g/dL 6.3-8.1 Potassium 3.9 mEq/L 3.6-5.5 Globulin 2.4 g/dL 2.0-4.8 A/G Ratio 1.7 Calc 0.6-2.2 BUN/Creat Ratio 21.2 Calc 8.0-36.0 Complete Blood Count 07/14/2008 Dusty Infante (a) WBC 5.5 x10^3/uL 3.6-9.6 Gran# 3.5 x10^3/uL 1.5-7.2 Gran% 63.7 % 42.2-75.2 HCT 40 % 36-50 HGB 13.6 g/dL 12.1-17.2 Lymph# 1.9 x10^3/uL 0.7-4.9 Lymph% 35.1 % 20.5-51.1 MCH 31.0 pg 27.6-33.3 MCV 91.0 fL 82.2-97.4 MCHC 34.1 g/dL 33.0-35.5 Mo# 0.1 x10^3/uL 0.1-0.9 Mo% 1.2 % Low 1.7-9.3 MPV 8.9 fL 7.4-10.4 PLT 217 x10^3/uL 150-400 RBC 4.37 x10^6/uL 3.90-5.70 RDW 13.3 % 11.6-13.7 Lipid Profile 07/14/2008 Dusty Infante (a) Cholesterol 225 mg/dL High 120-200 HDL 33 mg/dL 30-85 Triglycerides 217 mg/dL High 30-200 HDL Risk Factor 6.8 CALC 4.2-7.0 LDL (Calculated) 149 CALC High 0-129 VLDL (Calculated) 43 mg/dL 0-50 Laboratory test 07/14/2008 Dusty Infante (a) TSH 2.42 mIU/L 0.50- 6.00 finding Laboratory test 07/14/2008 [facility] Vitamin D, 25 10.0 ng/mL Low 32.0- 100.0 33 finding [address] [place] [address] [phone] 1 1 sst 2 2 sst 3 Negative <1:80 Borderline 1:80 Positive >1:80 4 Negative <5 Equivocal 5 - 9 Positive >9 5 HLA-B*27 Negative HLA allele interpretation for all loci based on IMGT/HLA database version 3.21 HLA Lab CLIA ID Number [id number] This test was performed using PCR (Polymerase Chain Reaction)/SSOP (Sequence Specific Oligonucleotide Probes) technique. SBT (Sequence Based Typing) and/or SSP (Sequence Specific Primers) may be used as supplemental methods when necessary. Please contact [facility] Customer Service at if you have any questions. Director of [facility] Laboratory Dr Rudi Zelaya, PhD 6 Negative <20 Weak positive 20 - 39 Moderate positive 40 - 59 Strong positive >59 7 SEE RESULT BELOW Name: STEPH WARREN : [address]: Pito Taylor MD Acct: [id number] Unit: [id number] AGE: 64 Location: [facility] Re12/08/14 SEX: F Status: REG REF SPEC: [id number] KESHAWN: 12/08/140 [facility] DR: Pito Taylor MD REQ: [id number] RECD: 12/08/14 STATUS: HERVE FRANCO DR: Aziza Norton MD _ ORDERED: T CELL STAIN, LEVEL IV/3, IV01-EPU, CD5-ADD, BCL-2-ADD, BCL-6-ADD, PAX-5 CYCLIN D1-ADD FINAL DIAGNOSIS 1. Colon, random right, biopsy: -- Collagenous colitis; see comment. 2. Colon, random left, biopsy: -- Collagenous colitis. 3. Colon, right, biopsy: -- Hyperplastic polyp. COMMENT: Histologic sections from specimens 1 and 2 show colonic mucosa with mildly increased intraepithelial lymphocytes and basement membrane thickening multiple prominent lymphoid aggregates are present. Immunostains, with appropriately reacting controls, were performed on sections cut from specimen 1 with the following results: PAX-5 positive for some cells and lymphoid aggregate, negative for majority: Cyclin D1 negative CD10 negative CD3 positive for majority of cells and lymphoid aggregate CD5 similar to CD3 BCL 2 similar to CD3 and CD5 BCL 6 negative The immunoprofile demonstrates that the lymphoid aggregates are reactive in nature. There is no evidence of a lymphoproliferative disorder. Dr. Purdy reviewed this case in intradepartmental consultation and agrees with the diagnosis. CONTINUED ON NEXT PAGE * ML=Testing performed at Main Lab DEPARTMENT OF PATHOLOGY, [address] [place] [address] Torsten Purdy M.D. Director [facility] # [id number] RUN DATE: 12/11/14 [facility] LAB LIVE PAGE 2 Patient: DAVITERIDakotaSTEPH [id number] (Continued) CLINICAL HISTORY (Continued) CLINICAL HISTORY ? relapse of microscopic colitis POST-OPERATIVE DIAGNOSIS Colonoscopy to cecum, fair prep - diffuse cobblestone appearance of right colon - no ulcers, no erosions, biopsied. Left colon o- nonspecific mucosal abnormality biopsied ; 2 mm. right colon polyp removed; rectum normal. 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 The specimen is received in formalin labeled, Random Right Colon Biopsies, and consists of a 0.4 x 0.4 x 0.1 cm aggregate of amador irregular soft tissue fragments, which is submitted entirely in one cassette. 2. The specimen is received in formalin labeled, Biopsy Random Left Colon, and consists of a 1.0 x 0.6 x 0.2 cm aggregate of amador irregular soft tissue fragments, which is submitted entirely in one cassette. 3. The specimen is received in formalin labeled, Biopsy Right Colon Polyp, and consists of a 0.2 x 0.2 x 0.1 cm amador irregular soft tissue fragment, which is submitted entirely in one cassette. Signed (signature on file) Nehal Green MD [id number] END OF REPORT * ML=Testing performed at Main Lab DEPARTMENT OF PATHOLOGY, [address] [place] [address] Torsten Purdy M.D. Director [facility] # [id number] Unable to Perform Shiga Toxin Testing. Insufficient Growth of Enteric Bacteria. 9 SEE RESULT BELOW Name: STEPH WARREN DOB: [address]: Victor Manuel Justice MD Acct: [id number] Unit: [id number] AGE: 63 Location: [facility] Re08/28/14 SEX: F Status: REG REF SPEC: [id number] KESHAWN: 08/28/14-[address]: Victor Manuel Justice MD REQ: [id number] RECD: 08/28/14-161 STATUS: RES _ SOURCE: STOOL SPDESC: ORDERED: C. diff PCR, Stool Culture, Fecal Lactoferr, O P: Giar/Crypt COMMENTS: Unable to Perform Shiga Toxin Testing. Insufficient Growth of Enteric Bacteria. Procedure Result Verified Site Stool Culture Final 08/31/14- 1244 ML Result No growth of normal enteric arelis No enteric pathogens isolated Testing for Salmonella, Shigella, Aeromonas, Plesiomonas, Yersinia and Campylobacter are included in a Stool Culture. Vibrio spp not routinely tested for in a stool culture. If testing is desired, please request specifically when placing test order. Sensitivities not routinely performed on stool isolates, as antibiotics may prolong the carriage rate of bacteria. Please contact the microbiology lab if sensitivities are required. Stool Specimen Description Final 08/31/14- 1243 ML Stool Color Brown Stool Form Nonformed Stool Consistency Liquid Shiga Toxin 1 2 Final 08/31/14- 1243 ML Test not performed C. difficile PCR Final 08/31/14- 1243 ML Organism 1 Toxigenic C.diff NEGATIVE CONTINUED ON NEXT PAGE * ML=Testing performed at Main Lab DEPARTMENT OF PATHOLOGY, [address] [place] [address] Torsten Purdy M.D. Director [facility] # [id number] Patient: STEPH WARREN [id number] (Continued) Specimen: [id number] Collected: 08/28/14-1400 Received: 08/28/14-161 (Continued) Procedure Result Verified Site C. difficile PCR Final (continued) 08/31/141243 Organism 2 027 Presumptive NEGATIVE Fecal Lactoferrin (Stool WBC) Final 08/31/141243 ML Fecal Lactoferrin Positive by Immunoassay TEST LIMITATIONS: Assay detects elevated levels of lactoferrin released from fecal leukocytes as a marker of intestinal inflammation. The test may not be appropriate in immunocompromised persons. Fecal samples from breast fed infants should not be used with this assay. O P: Giardia/Cryptospor Screen PENDING * ML - MAIN LAB ([facility]) . END OF REPORT * ML=Testing performed at Main Lab DEPARTMENT OF PATHOLOGY, [address] [place] [address] Torsten Purdy M.D. Director [facility] # [id number] 10 SEE RESULT BELOW Name: STEPH WARREN : [address]: Victor Manuel Justice MD Acct: [id number] Unit: [id number] AGE: 63 Location: [facility] Re08/28/14 SEX: F Status: REG REF SPEC: [id number] KESHAWN: 08/28/14-[address]: Victor Manuel Justice MD REQ: [id number] RECD: 08/28/14161 STATUS: COMP _ SOURCE: STOOL SPDESC: ORDERED: C. diff PCR, Stool Culture, Fecal Lactoferr, O P: Giar/Crypt COMMENTS: Unable to Perform Shiga Toxin Testing. Insufficient Growth of Enteric Bacteria. FECAL FAT DURATION:RANDOM Procedure Result Verified Site Stool Culture Final 08/31/14- 1244 ML Result No growth of normal enteric arelis No enteric pathogens isolated Testing for Salmonella, Shigella, Aeromonas, Plesiomonas, Yersinia and Campylobacter are included in a Stool Culture. Vibrio spp not routinely tested for in a stool culture. If testing is desired, please request specifically when placing test order. Sensitivities not routinely performed on stool isolates, as antibiotics may prolong the carriage rate of bacteria. Please contact the microbiology lab if sensitivities are required. Stool Specimen Description Final 08/31/14- 1243 ML Stool Color Brown Stool Form Nonformed Stool Consistency Liquid Shiga Toxin 1 2 Final 08/31/14- 1243 ML Test not performed C. difficile PCR Final 08/31/14- 1243 ML CONTINUED ON NEXT PAGE * ML=Testing performed at Main Lab DEPARTMENT OF PATHOLOGY, [address] [place] [address] Torsten Purdy M.D. Director [facility] # [id number] Patient: STEPH WARREN [id number] (Continued) Specimen: [id number] Collected: 08/28/14-1399 Received: 08/28/14-1616 (Continued) Procedure Result Verified Site C. difficile PCR Final (continued) 08/31/14- 1243 Organism 1 Toxigenic C.diff NEGATIVE Organism 2 027 Presumptive NEGATIVE Fecal Lactoferrin (Stool WBC) Final 08/31/14- 1244 ML Fecal Lactoferrin Positive by Immunoassay TEST LIMITATIONS: Assay detects elevated levels of lactoferrin released from fecal leukocytes as a marker of intestinal inflammation. The test may not be appropriate in immunocompromised persons. Fecal samples from breast fed infants should not be used with this assay. O P: Giardia/Cryptospor Screen Final 08/31/14- 1520 ML Organism 1 Neg Cryptosporidium/Giardia Giardia and cryptosporidium antigen testing performed by enzyme immunoassay. If patient is immunocompromised or has traveled to or is from a developing country, a full ova and parasite exam with microscopic (OPMIC) is recommended. All samples will be held one month in case full ova and parasite testing is requested. Contact the Microbiology Department at [phone]. TEST LIMITATIONS: As with all diagnostic procedures, the results obtained should be used in conjunction with other clinical information available the physician, including confirmation by another method. Negative results can occur in samples containing antigen below lower limits of detection of the assay. One negative specimen does not rule out the possibility of a parasitic infection. To improve detection it is recommended that three specimens be collected on separate days over a period of not more than seven CONTINUED ON NEXT PAGE * ML=Testing performed at Main Lab DEPARTMENT OF PATHOLOGY, [address] [place] [address] Torsten Purdy M.D. Director [facility] # [id number] Patient: STEPH WARREN [id number] (Continued) Specimen: [id number] Collected: 08/28/14-1399 Received: 08/28/14-1616 (Continued) Procedure Result Verified Site O P: Giardia/Cryptospor Screen Final (continued) 08/31/14- 1520 days. The use of colonic washes, aspirates or other diluted sample types has not been established and could affect the performance of the assay. Stool samples contaminated with an oily or particulate base (eg. Barium, mineral oil etc.) could interfere with the test and are not recommended. * ML - MAIN LAB ([facility]) . END OF REPORT * ML=Testing performed at Main Lab DEPARTMENT OF PATHOLOGY, [facility] [employer] [place] [id number] Torsten Purdy M.D. Director [facility] # [id number] 11 More reliable results can be obtained from a timed collection. 48 and 72 hour collections will give the most reliable results. Percent Fat >20% in a random collection is suggestive of a fat malabsorption disorder and should be confirmed with a timed collection. 12 Test Performed by: [place] [address] Rn Child: Jose Grewal II, M.D., Ph.D. 13 RUN DATE: 05/07/14 [facility] LAB LIVE PAGE 1 RUN TIME: [address] [place] [address] Specimen Inquiry Name: STEPH WARREN : [address]: Nick Mcintyre MD Acct: [id number] Unit: [id number] AGE: 63 Location: [facility] Re05/06/14 SEX: F Status: REG REF SPEC: [id number] KESHAWN: 05/06/14- [facility] DR: Nick Mcintyre MD REQ: [id number] RECD: 05/06/14-1244 STATUS: HERVE FRANCO DR: Aziza Norton MD _ ORDERED: LEVEL IV FINAL DIAGNOSIS Buccal mucosa, inner cheek, biopsy: -- Buccal fibroma. PRE-OPERATIVE DIAGNOSIS Inner cheek lesion. GROSS DESCRIPTION The specimen is received in formalin in one properly labeled container with the patient's name and accession number, designated "Inner Cheek Lesion" and consists of a amador-pink ovoid mucosal nodule measuring 0.4 x 0.2 x 0.1 Cm. Specimen is inked, bisected, and submitted entirely one cassette. Signed (signature on file) Torsten Purdy MD 1308 END OF REPORT * ML=Testing performed at Main Lab DEPARTMENT OF PATHOLOGY, [address] [place] [address] Torsten Purdy M.D. Director [facility] # [id number] 14 FASTING 15 FASTING 16 -- REFERENCE VALUE -- 25-HYDROXY D TOTAL (D2+D3) Optimum levels in the normal population are 25-80 Test Performed by: [facility] [place] [address] Rn Child: Vimal Padilla III, M.D. 17 A metabolite of Naproxen, O-desmethylnaproxen, has been shown to interfere with the Jendrkellyik-Fede method for measuring total bilirubin. Samples from patients who have taken Naproxen have shown spurious elevation in total bilirubin levels. 18 Because ethnic data is not always readily available, this report includes an eGFR for both -Americans and non- Americans. The National Kidney Disease Education Program (NKDEP) does not endorse the use of the MDRD equation for patients that are not between the ages of 18 and 70, are , have extremes of body size, muscle mass, or nutritional status, or are non- or non-. According to the National Kidney Foundation, irrespective of diagnosis, the stage of the disease is based on the level of kidney function: Stage Description GFR(mL/min/1.73 m(2)) 1 Kidney damage with normal or decreased GFR 90 2 Kidney damage with mild decrease in GFR 60-89 3 Moderate decrease in GFR 30-59 4 Severe decrease in GFR 15-29 5 Kidney failure <15 (or dialysis) 19 RUN DATE: 12/28/11 [facility] LAB LIVE PAGE 1 RUN TIME: [address] [place] [address] Specimen Inquiry Name: STEPH WARREN : [address]: Aziza Norton MD Acct: [id number] Unit: [id number] AGE: 61 Location: [facility] Re12/27/11 SEX: F Status: REG REF SPEC: [id number] KESHAWN: 12/27/11-[address] [facility] [address]: Aziza Norton MD REQ: [id number] RECD: 12/28/1150 STATUS: SOUT _ ORDERED: IMAGE ANALYSIS, HPV / Thin Prep Negative for Intraepithelial lesion or Malignancy COMMENTS: Specimen sent to [facility] in [place], [place] on 12/28/11. Results will be reported separately in an Addendum. A. Ectocervical/Endocervical Specimen Adequacy: Satisfactory of evaluation Transformation zone component identified Patient Information: HPV: High risk HPV DNA testing regardless of pap results. Actual Specimen Date: 12/27/11 Cautery: N IUD: N ?: N Post Menopausal?: Y Hysterectomy?: N Lesion, grossly demonstrate: N Previous Abnormal Pap Smears?:N Signed (signature on file) AISSATOU Paulino (ASCP) 12/28/11 6500 This Pap test was evaluated with the assistance of the YEDInstitutePrep Test Imaging System. Due to cytologic findings at the business technology architect microscope, comprehensive manual rescreening by a Curing Bin Operator may be required. The Pap Smear is a screening test designed to aid in the detection of premalignant and malignant conditions of the uterine cervix. It is not a diagnostic procedure and should not be used as the sole means of detecting cervical cancer. Both false- positive and false- negative reports do occur. Depending on your risk status, a Pap smear shoudl be obtained and evaluated every 1-3 years. END OF REPORT * ML=Testing performed at Main Lab DEPARTMENT OF PATHOLOGY, [address] [place] [address] Torsten Purdy M.D. Director [facility] Permit #[id number] 20 For types 16, 18, 31, 33, 35, 39, 45, 51, 52, 56, 58, 59 and 68. Test Performed by: [address] [address] Rn Child: Vimal Padilla III, M.D. R 21 RUN DATE: 01/02/12 [facility] LAB LIVE PAGE 1 RUN TIME: [address] [place] [address] Specimen Inquiry Name: STEPH WARREN : [address]: Aziza Norton MD Acct: [id number] Unit: [id number] AGE: 61 Location: [facility] Re12/27/11 SEX: F Status: REG REF SPEC: [id number] KESHAWN: 12/27/[address] [facility] [address]: Aziza Norton MD REQ: [id number] RECD: 12/28/11 STATUS: SOUT _ ORDERED: IMAGE ANALYSIS, HPV / Thin Prep HiRisk Human Papilloma Virus test results received with preparation and diagnosis completed by [facility], [place], [place]. Results: NEGATIVE High Risk (for types 16, 18, 31, 33, 35, 39, 45, 51, 52, 56, 58, 59, 68) DiGene Hybrid Capture Specimen Transport Media or Cytyc ThinPrep PapTest PreservCyt Solution are the collection systems approved for use with this method by the U.S. Food and Drug Administration. Performance characteristics for AutoCyte (SurPath) collection device have been determined by Laboratory Medicine and Pathology , [facility], [place], [place]. It has not been cleared or approved by the U.S. Food and Drug Administration. Test Performed by: [facility] Dpt of lab Med and Pathology [address] [place] [address] Rn Child: Vimal Padilla III, M.D. Original hard copy report from [facility] is available upon request by calling Pathology at [phone]. Addendum Signed (signature on file) AISSATOU Paulino ([facility]) 01/02/12 0928 Negative for Intraepithelial lesion or Malignancy COMMENTS: Specimen sent to [facility] in [place], [place] on 12/28/11. Results will be reported separately in an Addendum. A. Ectocervical/Endocervical Specimen Adequacy: Satisfactory of evaluation Transformation zone component identified Patient Information: HPV: High risk HPV DNA testing regardless of pap results. CONTINUED ON NEXT PAGE * ML=Testing performed at Main Lab DEPARTMENT OF PATHOLOGY, [address] [place] [address] Torsten Purdy M.D. Director [facility] Permit #[id number] RUN DATE: 01/02/12 [facility] LAB LIVE PAGE 2 RUN TIME: [address] [place] [address] Specimen Inquiry Patient: STEPH WARREN [id number] (Continued) CYTOLOGY PATIENT INFORMATION (Continued) Actual Specimen Date: 12/27/11 Cautery: N IUD: N ?: N Post Menopausal?: Y Hysterectomy?: N Lesion, grossly demonstrate: N Previous Abnormal Pap Smears?:N Signed (signature on file) AISSATOU Paulino (ASCP) 12/28/11 1455 This Pap test was evaluated with the assistance of the YEDInstitutePrep Test Imaging System. Due to cytologic findings at the business technology architect microscope, comprehensive manual rescreening by a Curing Bin Operator may be required. The Pap Smear is a screening test designed to aid in the detection of premalignant and malignant conditions of the uterine cervix. It is not a diagnostic procedure and should not be used as the sole means of detecting cervical cancer. Both false- positive and false- negative reports do occur. Depending on your risk status, a Pap smear shoudl be obtained and evaluated every 1-3 years. END OF REPORT * ML=Testing performed at Main Lab DEPARTMENT OF PATHOLOGY, [address] [place] [address] Torsten Purdy M.D. Director [facility] Permit #[id number] 22 Vitamin D deficiency has been defined by the [place] of Medicine and an Endocrine Society practice guideline as a level of serum 25-OH vitamin D less than 20 ng/mL (1,2). The Endocrine Society went on to further define vitamin D insufficiency as a level between 21 and 29 ng/mL (2). 1. IOM ([place] of Medicine). 2010. Dietary reference intakes for calcium and D. [place]: The National AcademDiversied Arts And Entertainment Press. 2. Shagufta THORPE, Sherley TELLO, Edilson BROWNLEE, et al. Evaluation, treatment, and prevention of vitamin D deficiency: an Endocrine Society clinical practice guideline. JCEM. 2010; 96(7):1911-30. 23 Vitamin D deficiency has been defined by the [place] of Medicine and an Endocrine Society practice guideline as a level of serum 25-OH vitamin D less than 20 ng/mL (1,2). The Endocrine Society went on to further define vitamin D insufficiency as a level between 21 and 29 ng/mL (2). 1. IOM ([place] of Medicine). 2010. Dietary reference intakes for calcium and D. [place]: The National Academies Press. 2. Shagufta THORPE, Sherley TELLO, Edilson BROWNLEE, et al. Evaluation, treatment, and prevention of vitamin D deficiency: an Endocrine Society clinical practice guideline. JCEM. 2010; 96(7):1911-30. 24 RESULT NELSON'D 25 Effective January 16, 2011 Vitamin D, 25-Hydroxy reference intervals will be changing to 30-100. . Recent studies consider the lower limit of 32.0 ng/mL to be a threshold for optimal health. Reinoso BW. J Nutr. 2004;135(2):317-22. 26 Recent studies consider the lower limit of 32.0 ng/mL to be a threshold for optimal health. Reinoso BW. J Nutr. 2004;135(2):317-22. 27 RESULT NELSON'D 28 Recent studies consider the lower limit of 32.0 ng/mL to be a threshold for optimal health. Reinoso BW. J Nutr. 2004;135(2):317-22. 29 RESULT NELSON'D 30 FASTING 31 Recent studies consider the lower limit of 32.0 ng/mL to be a threshold for optimal health. Reinoso BW. J Nutr. 2004;135(2):317-22. 32 [employer] DEPARTMENT OF PATHOLOGY or Extension [employer] WORKER CYTOLOGY REPORT PATIENT: STEPH WARREN : 1950 AGE: 57 Y SEX: F ACCT: [id number] PROCEDURE DATE: 08/07/2008 DATE RECEIVED: 08/10/2008 REQUESTING PHYSICIAN: EMILIA MARTÍNEZ MD LOCATION: [facility] [place] No. 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 THE PRESENCE OF TRANSFORMATION ZONE COMPONENT CANNOT BE DETERMINED DUE TO ATROPHIC CHANGES. GENERAL CATEGORIZATION NEGATIVE FOR INTRAEPITHELIAL LESIONS OR MALIGNANCY RECOMMENDATIONS See Related Microbiology Result below. RELATED MICROBIOLOGY RESULT: HPV, HIGH RISK ONLY Source: CERVICAL Result: Negative for high/intermediate risk HPV types 16/18/31/33/35/39/45/51/52/56/58/59/68 Test method: Hybrid Capture 2. ADDITIONAL COPIES SENT TO: Screened/Rescreened by: Electronically Signed by: AISSATOU SEVERINO(ASCP) Signed Date and Time: 08/13/2008 12:44 Thin Prep Pap tests are examined with an FDA-approved location-guidance system (81841). Performed @ [facility] [employer] [address] [place] [address] "" 33 Recent studies consider the lower limit of 32.0 ng/mL to be a threshold for optimal health. Kemar BW. J Nutr. 2005 Mar;135(2):317-22. Procedures Date Code Description Status 07/06/2016 [id number] Mammogram Completed 05/26/2016 78945 Pulse Oximetry Completed 12/08/2014 [id number] Colonoscopy Completed 08/27/2014 23454 Pulse Oximetry Completed 05/22/2014 04923 Dxa Bone Density Study One Or More Sites Axial Completed Skeleton 05/12/2014 [id number] Bone Mineral Density Test Completed 05/11/2014 [id number] Mammogram Completed 05/14/2013 84697824 Mammogram Completed 06/06/2012 56965 Electrocardiogram Complete Completed 12/27/2011 54029 Vision Test- screening test of visual acuity, Completed quantitative, bila 12/02/2010 00110 Pulse Oximetry Completed 05/12/2010 [id number] Mammogram Completed 03/04/2010 01315 Pulse Oximetry Completed 10/15/2008 49036 Pulse Oximetry Completed 07/10/2008 [id number] Mammogram Completed Encounters Type Date Location Provider Dx Diagnosis Office Visit 02/01/2018 [facility] Office Aziza Muniz M25.461 Effusion, right 11:20a Rhina Norton knee F17.210 Nicotine dependence, cigarettes, uncomplicated S50.819A Abrasion of unspecified forearm, initial encounter Office Visit 12/05/2017 11:20a Main Office Aziza Muniz F17.210 Nicotine dependence, Rhina Norton cigarettes, uncomplicated J45.30 Mild persistent asthma, uncomplicated Z23 Encounter for immunization Office Visit 11/08/2017 [facility] Aziza Muniz F17.210 Nicotine 11:20a Office Rhina Norton dependence, cigarettes, uncomplicated J45.30 Mild persistent asthma, uncomplicated Office Visit 09/21/2017 [facility] Aziza Muniz F17.210 Nicotine 9:40a Office Rhina Norton dependence, cigarettes, uncomplicated 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, right wrist Office Visit 07/19/2017 9:15a Main Office ANMOL [place] R30.0 Dysuria M54.5 Low back pain Office Visit 03/21/2017 11:00a Main Office Aziza Muniz M15.0 Primary generalized Rhina Norton (osteo)arthritis I10 Essential (primary) hypertension J45.30 Mild persistent asthma, uncomplicated M25.551 Pain in right hip F17.210 Nicotine dependence, cigarettes, uncomplicated K52.831 Collagenous colitis J31.0 Chronic rhinitis Office Visit 11/15/2016 11:20a Main Office Aziza Muniz J01.90 Acute sinusitis, Rhina Norton unspecified J45.30 Mild persistent asthma, uncomplicated I10 Essential (primary) hypertension M25.551 Pain in right hip Z23 Encounter for immunization Office Visit 08/02/2016 10:40a Main Office Aziza Muniz K21.9 Gastro- esophageal Rhina Norton reflux disease without esophagitis J45.30 Mild persistent asthma, uncomplicated I10 Essential (primary) hypertension E78.2 Mixed hyperlipidemia F17.210 Nicotine dependence, cigarettes, uncomplicated Office Visit 06/28/2016 9:00a Main Office Aziza Muniz Z00.01 Encounter for Rhina Norton general adult medical exam w abnormal findings Z12.31 Encntr screen mammogram for malignant neoplasm of breast I10 Essential (primary) hypertension E78.4 Other hyperlipidemia J45.30 Mild persistent asthma, uncomplicated R23.8 Other skin changes Office Visit 05/26/2016 8:45a [facility] Nehal López01.90 Acute sinusitis, 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 knee M25.551 Pain in right hip A09 Infectious gastroenteritis and colitis, unspecified F17.210 Nicotine dependence, cigarettes, uncomplicated E55.9 Vitamin D deficiency, unspecified Office Visit 04/26/2015 6:00p Main Office Aziza Norton, M25.561 Pain in right M.D. knee M54.5 Low back pain M25.562 Pain in left knee M15.0 Primary generalized (osteo)arthritis Z23 Encounter for immunization Office Visit 04/15/2015 10:10a [facility] Clifford López01.80 Other acute Rhina Alford sinusitis J40 Bronchitis, not specified as acute or chronic I10 Essential (primary) hypertension E78.4 Other hyperlipidemia Office Visit 11/16/2014 6:30p Main Office Aziza Muniz 009.1 Colitis Enteritis & Rhina Norton Gastroenteritis Presumed Infectious Orig 781.99 Other Symptoms Involving Nervous And Musculoskeletal Systems 401.9 Hypertension Unspec V04.81 Need For Prophylactic Vaccination & Inoculation/Influenza V03.82 Streptococcus Pneumoniae Vaccination Spec Other Office Visit 10/12/2014 10:45a Main Office ANMOL [place] 787.91 Diarrhea 724.5 Backache Unspec Office Visit 08/27/2014 7:30p Main Office Victor Manuel LiuNallely Justice, 461.9 Sinusitis Acute M.D. Unspec 787.91 Diarrhea Office Visit 07/03/2014 11:20a Main Office Aziza Muniz 401.9 Hypertension Unspec Rhina Norton 272.0 Hypercholesterolemia Pure 305.1 Tobacco Use Disorder 781.99 Other Symptoms Involving Nervous And Musculoskeletal Systems Office Visit 05/04/2014 9:00a Main Office Aziza Muniz V70.0 Examination General Rhina Norton Medical Routine AT Health Care Facility 461.8 Sinusitis Acute Other 782.9 Skin & Integumentary Tissue Other Symptoms 719.46 Pain Joint Lower Leg 401.9 Hypertension Unspec 272.0 Hypercholesterolemia Pure 305.1 Tobacco Use Disorder 009.1 Colitis Enteritis & Gastroenteritis Presumed Infectious Orig 268.9 Vitamin D Deficiency Unspec 493.10 Asthma Intrinsic Unspecified 110.5 Dermatophytosis Body V76.12 Screening Mammogram Malig Jared Other Office Visit 01/05/2014 Main Office Aziza Muniz v04.81 Need For Prophylactic 6:30p Rhina Norton Vaccination & Inoculation/Influenza 401.9 Hypertension Unspec 272.0 Hypercholesterolemia Pure 305.1 Tobacco Use Disorder 461.1 Sinusitis Acute Frontal 719.46 Pain Joint Lower Leg Office Visit 09/29/2013 6:30p Main Office Aziza Norton M.D. 786.2 Cough 305.1 Tobacco Use Disorder 523.10 Chronic Gingivitis, Plaque Induced 719.44 Pain Joint Hand Office Visit 06/05/2013 5:45p Main Office ANMOL [place] 786.2 Cough 305.1 Tobacco Use Disorder Office Visit 04/29/2013 10:40a Main Office Aziza Muniz V70.0 Examination General Rhina Norton Medical Routine AT Health Care Facility 530.81 Esophageal Reflux 272.0 Hypercholesterolemia Pure 401.9 Hypertension Unspec 268.9 Vitamin D Deficiency Unspec 009.1 Colitis Enteritis & Gastroenteritis Presumed Infectious Orig 493.10 Asthma Intrinsic Unspecified 523.10 Chronic Gingivitis, Plaque Induced 305.1 Tobacco Use Disorder Office Visit 12/05/2012 6:00p Main Office Nehal Iglesias, 719.46 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 891.2 Open Wound Knee Leg (Except Thigh) & Ankle W/ Tendon Invlv Office Visit 10/16/2012 10:00a Main Office Aziza Muniz 401.9 Hypertension Rhina Norton Unspec Office Visit 09/26/2012 3:15p Main Office Aziza Muniz 401.9 Hypertension Rhina Norton Unspec Office Visit 06/06/2012 11:20a [facility] Aziza Muniz 782.0 Skin Sensation Rhina Norton Disturbance 780.2 Syncope & Collapse 386.11 Vertigo Benign Paroxysmal Position 268.9 Vitamin D Deficiency Unspec 461.8 Sinusitis Acute Other Office Visit 12/27/2011 Main Office Aziza Muniz V04.81 Need For Prophylactic 10:00a Rhina Norton Vaccination & Inoculation/Influenza V70.0 Examination General Medical Routine AT Health Care Facility 009.1 Colitis Enteritis & Gastroenteritis Presumed Infectious Orig 268.9 Vitamin D Deficiency Unspec V72.31 Routine Vp Software Examination 401.9 Hypertension Unspec 493.10 Asthma Intrinsic Unspecified 272.0 Hypercholesterolemia Pure V03.82 Streptococcus Pneumoniae Vaccination Spec Other Office Visit 11/06/2011 5:40p Main Office Aziza Norton, 486 Pneumonia Organism M.D. Unspec 923.3 Contusion Finger Office Visit 05/26/2011 10:20a Main Office Emilia Martínez, 401.9 Hypertension Unspec M.D. 268.9 Vitamin D Deficiency Unspec 493.10 Asthma Intrinsic Unspecified 719.46 Pain Joint Lower Leg 272.0 Hypercholesterolemia Pure Office Visit 02/10/2011 10:00a Main Office Emilia Martínez, 401.9 Hypertension Unspec M.D. 268.9 Vitamin D Deficiency Unspec 493.10 Asthma Intrinsic Unspecified 272.0 Hypercholesterolemia Pure 719.46 Pain Joint Lower Leg Office Visit 12/02/2010 4:30p Main Office Arleen Zafar, [employer] SUPERVISOR 461.9 Sinusitis Acute Unspec 493.10 Asthma Intrinsic Unspecified Office Visit 11/09/2010 Main Office Emilia Gordon v04.81 Need For Prophylactic 10:00a Rhina Martínez Vaccination & Inoculation/Influenza 719.45 Pain Joint Pelvic Region & Thigh 401.9 Hypertension Unspec 272.0 Hypercholesterolemia Pure 268.9 Vitamin D Deficiency Unspec 305.1 Tobacco Use Disorder 296.32 Depressive Disorder Major Recurrent Moderate 493.10 Asthma Intrinsic Unspecified Office Visit 05/06/2010 9:00a Main Office Emilia Martínez, V70.0 Examination General M.D. Medical Routine AT Health Care Facility 296.32 Depressive Disorder Major Recurrent Moderate 719.45 Pain Joint Pelvic Region & Thigh 401.9 Hypertension Unspec 272.0 Hypercholesterolemia Pure 268.9 Vitamin D Deficiency Unspec 305.1 Tobacco Use Disorder 790.6 Abnormal Blood Chemistry Other Office Visit 03/04/2010 3:40p Main Office Emilia Gordon 466.0 Bronchitis Acute Rhina Martínez Office Visit 12/31/2009 10:20a Main Office Emilia Gordon V04.81 Need For Rhina Martínez Prophylactic Vaccination & Inoculation/Influenz a v04.81 Need For Prophylactic Vaccination & Inoculation/Influenza 530.81 Esophageal Reflux 401.9 Hypertension Unspec 788.30 Incontinence Urinary Unspec 305.1 Tobacco Use Disorder 272.0 Hypercholesterolemia Pure 268.9 Vitamin D Deficiency Unspec 782.0 Skin Sensation Disturbance Office Visit 08/24/2009 9:10a Main Office Emilia Martínez, 530.81 Esophageal Reflux HeidiDNallely 401.9 Hypertension Unspec 372.00 Conjunctivitis Acute Unspec 788.30 Incontinence Urinary Unspec 716.34 Arthritis Climacteric Hand Office Visit 07/14/2009 Main Office Esperanza 530.81 Esophageal Reflux 6:00p Charles Mclaughlin-C Office Visit 05/19/2009 Main Office Esperanza 372.00 Conjunctivitis Acute 1:15p Vic Mclaughlin Afnp-C Office Visit 05/17/2009 [facility] Emilia Gordon 372.00 Conjunctivitis Acute 1:40p Office Rhina Martínez Unspec 401.9 Hypertension Unspec 461.9 Sinusitis Acute Unspec 382.9 Otitis Media Unspec Office Visit 05/13/2009 Main Office Lisbeth Hinds 372.00 Conjunctivitis Acute 10:00a Afnp-C Unspec Office Visit 05/10/2009 Daniela Gordon 382.9 Otitis Media Unspec 4:20p Office Rhina Martínez 401.9 Hypertension Unspec Office Visit 12/15/2008 9:00a Main Office Emilia Martínez, 719.46 Pain Joint Lower M.D. Leg 272.0 Hypercholesterolemia Pure 268.9 Vitamin D Deficiency Unspec 401.9 Hypertension Unspec Office Visit 10/15/2008 11:15a Main Office Lisbeth Hinds, 465.8 Upper Respiratory Afnp-C Infections Acute Other Multiple Sites Office Visit 08/07/2008 9:40a Main Office Emilia Martínez, V70.0 Examination General M.D. Medical Routine AT Health Care Facility 272.0 Hypercholesterolemia Pure 268.9 Vitamin D Deficiency Unspec 401.9 Hypertension Unspec 307.49 Sleep Disorder Other 729.5 Pain In Limb 278.00 Obesity Unspec Office Visit 06/23/2008 9:00a Main Office Emilia Martínez, 719.46 Pain Joint Lower M.D. Leg 305.1 Tobacco Use Disorder 311 Depressive Disorder Not Elsewhere Spec 272.0 Hypercholesterolemia Pure 401.9 Hypertension Unspec V76.19 Screening Breast Exam Malignant Neoplasms Other V65.49 Counseling Other Spec Plan of Treatment Future Appointment(s):06/28/2018 10:00 am - Aziza Norton M.D. at [facility]04/12/2018 - Aziza Norton M.D.Z01.818 Encounter for other preprocedural examinationNew Labs:Ua - Micro If Indicated (Centr, Ordered: 04/12Urine C&S If Indicated, Ordered: 04/12/18Comments:stop alleve, aspirin, all vitamins 2 weeks prior to surgery. EKG- bradycardia, new q wave.Due to history of HTN, HIgh cholesterol, ++ family history CAD in mother, half-way smoker who just quit smoking in August 2017, and complaints of difficulty with balance and new changes on EKG will refer to cardiology to rule out cardiovascular disease prior to surgery. Please start a bowel regimen with the FIRST PAIN PILL to prevent constipation.M17.11 Unilateral primary osteoarthritis , right kneeM25.561 Pain in right kneeM25.461 Effusion, right kneeJ45.30 Mild persistent asthma, [id number] Essential (primary) hypertensionComments: well controlled, continue lisinopril.E78.2 Mixed hyperlipidemiaNew Labs:CBC Electronic-ALL Lab Compani, Ordered: 04/12/18CCC-Comp+Lipid (Fma), Ordered: Creatine Kin, Total (F/C/CTX), Ordered: 04/12/18TS (Fma/[facility]), Ordered: 04/12/18Comments:has been well controlled in the past. will be checking lipids.continue zfldnosyilkxA30.9 Gastro-esophageal reflux disease without [id number] Infectious gastroenteritis and colitis, unspecifiedComments:stable on budesonide.B35.1 Tinea unguiumComments:refer to podiatry. Get lac-hydrin for your dry skin on your feet.R00.1 Bradycardia, unspecifiedComments:~B_~U_known history of naz cardia, seems to be getting worse, symptomatic. SENDING TO THE ER. GAVE REPORT TO DON CAO RN.I was going to have her sign out AMA, then patient decided to go to the ER via ambulancle.she has new EKG changes, ++risk factors, looks young and has new recent symptoms of gerd and difficulty with balance. ~u_~b_AllComments:~B_~U_ Medication Management~b_~u_ Patient Understands medications she's taking? Yes No Are there Barriers to Adherence? Yes No Has the patient been asked about herbal supplements and therapies, and OTC meds? Yes No
[2018-04-12 14:38] LABS: ABS Basophils 0 10^3/ul (0-0.2); ABS Eosinophils 0 10^3/ul (0-0.6); ABS Lymphocytes 1.8 10^3/ul (1.0-4.8); ABS Monocytes 0.4 10^3/ul (0-0.8); ABS Neutrophils 5.2 10^3/ul (1.5-7.7); ABS Nucleated RBC 0 10^3/ul; Eosinophil % 0.7 %; Hematocrit 41 % (35-47); Hemoglobin 13.6 g/dl (12.0-16.0); Lymphocyte % 24.3 %; Mean Corpuscular HGB Conc 34 g/dl (31-36); Mean Corpuscular Hemoglobin 32 pg (27-31); Mean Corpuscular Volume 95 fL (80-97); Mean Platelet Volume 8.4 fL (7.4-10.4); Nucleated Red Blood Cells % 0; Platelet Count 232 10^3/ul (150-450); Red Cell Distribution Width 14 % (10.5-15); White Blood Count 7.6 10^3/ul (3.5-10.8)
--- NOTE | 2018-04-12 14:42 | ED ---
HPI Cardiac - HPI Summary HPI Summary: Pt is a 67 y/o F presenting to the ED with a chief complaint of chest pain. She went to her doctors this morning to get checked out for a knee replacement when her doctor noticed her heart was going to slow. The pt had indigestion a couple of days ago, and her doctor thought it may have been a heart attack. She has also been off balance for a couple of days, she experienced mild sob, and some L anterior chest pain. The pt quit smoking last august, and has been told she has the beginning of COPD. - History of Current Complaint Chief Complaint: EDChestPainROMI Stated Complaint: LOW HEART RATE Time Seen by Provider: 04/12/18 14:08 Hx Obtained From: Patient Onset/Duration: Started Days Ago, Still Present Timing: Intermittent Initial Severity: Mild Current Severity: None Pain Intensity: 0 Pain Scale Used: 0-10 Numeric Chest Pain Location: Left Anterior Chest Pain Radiates: No Aggravating Factor(s): Nothing Alleviating Factor(s): Nothing Associated Signs and Symptoms: Positive: Chest Pain, Dizziness, Shortness of Breath, Other: - indigestion - Allergy/Home Medications Allergies/Adverse Reactions: Allergies Allergy/AdvReac Type Severity Reaction Status Date / Time latex Allergy Rash And Verified 04/12/18 14:18 Itching Perfume [Fragrance] Allergy diff. 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 ARREST OF 4 SEC 2001, Other Cardiovascular Problems/Disorders - SEE ABOVE TODAY 96/41 Denies: Hx Pacemaker/ICD Respiratory History: Reports: Hx Asthma, Hx Chronic Obstructive Pulmonary Disease (COPD), Hx Sleep Apnea - DOESN'T USE MACHINE GI History: Reports: Hx Gastroesophageal Reflux Disease - ON MEDICATION FOR, Other GI Disorders - COLITIS OK WITH MED Musculoskeletal History: Reports: Hx Arthritis - ANKLES KNEES, Hx Bursitis - RT ELBOW, Hx Osteoporosis Sensory History: Reports: Hx Contacts or Glasses - GLASSES Denies: Hx Hearing Aid Opthamlomology History: Reports: Hx Contacts or Glasses - GLASSES Psychiatric History: Reports: Hx Depression - PRN- JONA'S WART Denies: Hx Panic Disorder - Cancer History Hx Chemotherapy: No Hx Radiation Therapy: No - Surgical History Surgery Procedure, Year, and Place: 1969 RT KNEE [facility], 1973 C SECTION [facility], 1976 C SECTION [facility], 1976 TUBES TIED, 2009 LT KNEE ARTHROSCOPY [facility], RIGHT THUMB, Hx Anesthesia Reactions: No Infectious Disease History: No Infectious Disease History: Denies: Traveled Outside the [place] in Last 30 Days - Family History Known Family History: Positive: Hypertension - Social History Alcohol Use: None Substance Use Type: Reports: None Smoking Status (MU): Light Every Day Tobacco Smoker Amount Used/How Often: DECREASED 3 CIGARETTES PER DAY- OFF AND ON 20 YEARS Review of Systems Positive: Chest Pain Positive: Shortness Of Breath Positive: Other - indigestion All Other Systems Reviewed And Are Negative: Yes Physical Exam - Summary Physical Exam Summary: GENERAL: Patient is a well-developed and nourished F who is lying comfortable in the stretcher. Patient is not in any acute respiratory distress. HEAD AND FACE: Normocephalic EYES: PERRLA, EOMI x 2. EARS: Hearing grossly intact. MOUTH: Oropharynx within normal limits. NECK: Supple, trachea is midline, no adenopathy, no JVD, no carotid bruit. CHEST: Symmetric, no tenderness at palpation LUNGS: Clear to auscultation bilaterally. No wheezing or crackles. CVS: Regular rate and rhythm, S1 and S2 present, no murmurs or gallops appreciated. ABDOMEN: Soft, non-tender. Bowel sounds are normal. No abdominal abnormal pulsations. EXTREMITIES: Full ROM in all major joints, no edema, no cyanosis or clubbing. NEURO: Alert and oriented x 3. No acute neurological deficits. Speech is normal and follows commands. SKIN: Dry and warm Triage Information Reviewed: Yes Vital Signs On Initial Exam: Initial Vitals Temp Pulse Resp BP Pulse Ox 98.7 F 43 18 101/70 97 04/12/18 13:21 04/12/18 13:21 04/12/18 13:21 04/12/18 13:21 04/12/18 13:21 Vital Signs Reviewed: Yes Diagnostics - Vital Signs Vital Signs Temp Pulse Resp BP Pulse Ox 04/12/18 14:16 40 14 120/55 97 04/12/18 14:15 94 04/12/18 13:21 98.7 F 43 18 101/70 97 - Laboratory Lab Results: Lab Results 04/12/18 Range/Units 14:28 WBC 7.6 (3.5-10.8) 10^3/ul RBC 4.30 (4.00-5.40) 10^6/ul Hgb 13.6 (12.0-16.0) g/dl Hct 41 (35-47) % MCV 95 (80-97) fL MCH 32 H (27-31) pg MCHC 34 (31-36) g/dl RDW 14 (10.5-15) % Plt Count 232 (150-450) 10^3/ul MPV 8.4 (7.4-10.4) fL Neut % (Auto) 68.7 % Lymph % (Auto) 24.3 % [place] % (Auto) 5.8 % Eos % (Auto) 0.7 % Baso % (Auto) 0.5 % Absolute Neuts (auto) 5.2 (1.5-7.7) 10^3/ul Absolute Lymphs (auto) 1.8 (1.0-4.8) 10^3/ul Absolute Monos (auto) 0.4 (0-0.8) 10^3/ul Absolute Eos (auto) 0 (0-0.6) 10^3/ul Absolute Basos (auto) 0 (0-0.2) 10^3/ul Absolute Nucleated RBC 0 10^3/ul Nucleated RBC % 0 Result Diagrams: 04/12/18 14:28 04/12/18 14:28 Lab Statement: Any lab studies that have been ordered have been reviewed, and results considered in the medical decision making process. - Radiology Chest x-ray Radiology Interpretation Completed By: Radiologist Summary of Radiographic Findings: No active cardiopulmonary disease is noted. ED physician has reviewed this report. - EKG 1327 Cardiac Rate: Bradycardia - 41bpm EKG Rhythm: Sinus Bradycardia ST Segment: Normal Ectopy: None Summary of EKG Findings: Nonspecific IVCD and q-waves in the inferior leads. Disposition - Course Course Of Treatment: Pt is a 67 y/o F presenting to the ED with a chief complaint of chest pain. She went to her doctors this morning to get checked out for a knee replacement when her doctor noticed her heart was going to slow. Case discussed with hospitalist. I discussed results with patient. The patient agrees with this plan. The pt will be admitted with a dx of chest pain. - Diagnoses Provider Diagnoses: Chest pain Discharge - Sign-Out/Discharge Documenting (check all that apply): Patient Departure - Discharge Plan Condition: Stable Disposition: ADMITTED TO [facility] - Billing Disposition and Condition Condition: STABLE Disposition: Admitted to [facility] - Attestation Statements Document Initiated by Stephaneibcarroll: Yes Documenting Scribe: Hayley Hernandez Provider For Whom Lizette is Documenting (Include Credential): Andres Shaw MD. Scribe Attestation: Hayley Covarrubias, jeted for Andres Shaw MD. on 04/14/18 at 1039. Scribe Documentation Reviewed: Yes Provider Attestation: The documentation as recorded by the scribeHayley accurately reflects the service I personally performed and the decisions made by Tiffanie turner MD. Status of Scribe Document: Viewed
[2018-04-12 15:02] LABS: Albumin 4.4 g/dL (3.2-5.2); Albumin/Globulin Ratio 1.5 (1-3); BUN/Creatinine Ratio 30.3 (8-20); Calcium 9.8 mg/dL (8.6-10.3); EGFR African American 108.4 (>60); EGFR Non-African American 89.6 (>60); Globulin 2.9 g/dL (2-4); Potassium 3.7 mmol/L (3.5-5.0); Total Bilirubin 0.5 mg/dL (0.2-1.0); Total Protein 7.3 g/dL (6.4-8.9)
[2018-04-12] MEDS ORDERED: Albuterol HFA INHALER* 8 gm MDI INH PRN (17:03)
--- NOTE | 2018-04-12 21:20 | HP ---
CC: Dr. Norton; Dr. Lopez.* HISTORY AND PHYSICAL: DATE OF ADMISSION: 04/12/18 PRIMARY CARE PROVIDER: Dr. Norton. CLAIM PROCESSOR: Dr. Lopez. CHIEF COMPLAINT: Chest pain. HISTORY OF PRESENT ILLNESS: Ms. Martinez is a 67-year-old female who has a history of hypertension and hyperlipidemia as well as microscopic colitis, who presented to the emergency room with complaints of chest pain a couple of days ago. The patient states that she was seeing her primary care provider on the day of admission for a preoperative evaluation for a right total knee replacement next month when she described having an episode of severe indigestion 2 to 3 days prior. EKG was being performed, and it was noted that when she was laid back to get the EKG, her heart rate dropped. When she was sat up, somebody noted that she was adams in color and looked unwell and told her it must have been her heart and that she likely had a heart attack a couple of days ago and sent her to the emergency room for evaluation. The patient describes approximately 2 to 3 days ago an episode of severe indigestion. She states that she was eating, and while doing so, she developed discomfort in her chest. She was unable to describe this for me. She then drank a whole bunch of water and took Rolaids, and in approximately 5 minutes, the pain went away. She had no associated symptoms including shortness of breath or diaphoresis. She has never had anything like this in the past. She does state that food will get caught in her throat frequently and was told that it was due to weak muscles. She states that she has had a stress test in the past and this was done with Dr. Lopez approximately a year to a year and a half ago, although she is not completely sure on the timing of this. Today, she states that she has been doing okay, but has been noting to be more sweaty than usual. She also noted that day when she was walking fast, she was somewhat winded. PAST MEDICAL HISTORY: 1. Hypertension. 2. Hyperlipidemia. 3. Microscopic colitis. PAST SURGICAL HISTORY: 1. Tonsillectomy. 2. Right thumb surgery. 3. Right arthroscopic knee surgery. 4. x1. 5. Operation on the nose at the age of 13. MEDICATIONS: 1. Albuterol 2 puffs inhaled b.i.d. p.r.n. shortness of breath. 2. Tylenol Arthritis 1300 mg p.o. b.i.d. p.r.n. pain. 3. Aspirin 81 mg p.o. daily. 4. Lipitor 80 mg p.o. daily. 5. Budesonide 9 mg p.o. daily. 6. Lisinopril 5 mg p.o. daily. 7. Ketoconazole cream, apply topically twice daily as needed for rash or itching. 8. Zyrtec 10 mg p.o. daily. 9. Naproxen 440 mg p.o. b.i.d. p.r.n. pain. 10. Multivitamin 1 tab p.o. daily. 11. Omeprazole 40 mg p.o. daily. 12. [place]'s Wort 300 mg daily p.r.n. depression. ALLERGIES: No known drug allergies. FAMILY HISTORY: Mom at the age of 79. She had an [place]. Dad at the age of 82; his cause of is unknown. SOCIAL HISTORY: The patient is a former smoker. She quit approximately 7 to 8 months ago. She previously was smoking 1/2 to 1 pack per day . She has quit in the past and then picked up smoking again and smoked in total for approximately 20 to 25 years. She does not drink alcohol. 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 She is . She has 2 children. She indicates that her oldest daughter Vi would be her healthcare proxy. REVIEW OF SYSTEMS: A complete 11 system review of systems is obtained. Pertinent positives and negatives are as per HPI and otherwise negative. PHYSICAL EXAMINATION GENERAL: The patient is a well-developed middle age female, seen sitting up in the stretcher, in no acute distress. VITAL SIGNS: Blood pressure 134/69, pulse 44, respiration 16, temp 98.7, O2 sat 97% on room air. HEENT: Pupils equal, round. Extraocular muscles are intact. Oropharynx is clear. Oral mucosa is moist. There is no submandibular, crevicular, or supraclavicular adenopathy. Thyroid is not enlarged. No thyroid nodules noted. PULMONARY: Lungs are clear to auscultation bilaterally. HEART: Normal S1, S2. Heart rate is bradycardic but regular. There is no lower extremity edema. ABDOMEN: Bowel sounds. Abdomen is soft, nontender, nondistended. MUSCULOSKELETAL: There is no cyanosis or clubbing, of the digits. There is no full active range of all 4 extremities. NEURO: Cranial nerves II through XII are grossly intact. Sensation is intact to light touch throughout. Strength is 5/5 and symmetric both upper and lower extremities bilaterally. SKIN: Warm and dry. There are no rashes. PSYCHIATRIC: The patient is alert. She is oriented x3. Affect appears appropriate. DIAGNOSTIC STUDIES/LAB DATA: WBC 7.6, hemoglobin 13.6, hematocrit 41, platelets 232. Sodium 139, potassium 3.7, chloride 104, CO2 26, BUN 20, creatinine 0.66, glucose 92, lactic acid 1.0, calcium 9.8, bilirubin 0.5, AST 16 , ALT 25, alk phos 37, troponin 0, albumin 4.4. EKG revealed sinus bradycardia without any acute ST-T wave abnormalities. Chest x- ray reveals no active cardiopulmonary disease. ASSESSMENT AND PLAN: Ms. Martinez is a 67-year-old female with a history of hypertension, hyperlipidemia, and past smoking history, who presents to the emergency room after complaining of an episode of indigestion approximately 2 to 3 days ago. 1. Chest discomfort. My suspicion is that the patient may have been suffering from either esophageal spasm or in fact acid reflux that improved with the drinking of water and taking Rolaids. I doubt this represents an acute coronary syndrome; however, as the patient is going to be undergoing an elective right total knee arthroplasty next month, I do feel it is warranted to admit the patient under observation status to monitor her heart rhythm overnight especially as she is bradycardic and follow up with the third troponin. Again, my suspicion is very low that this episode was truly an acute coronary syndrome. I also feel that the patient would benefit from a chemical nuclear stress test; however, as it is now the weekend, an outpatient stress test will be set up for the patient. The patient should be able to be discharged home tomorrow morning as long as everything remains stable overnight. 2. Hypertension. The patient's blood pressure is under good control. She will continue on her usual home medication regimen. 3. Gastroesophageal reflux disease. Continue Protonix in place of omeprazole. 4. Hyperlipidemia. Continue high-dose Lipitor. 5. Microscopic colitis. Continue budesonide. 6. DVT prophylaxis: According to the adult thrombosis prophylaxis risk factor assessment guide, the patient has a total risk factor score of 3 making her high risk. Heparin 5000 units subcutaneous q.8 hours will be utilized as DVT prophylaxis. 7. Code status is full. TIME SPENT: 65 minutes was spent admitting this patient. [id number]/[facility] #: [id number] MTDD
[2018-04-12] MEDS: Heparin VIAL(*) 5000 UNITS/ML VIAL (FIVE THOUSAND) SUBCUT SCH (21:51)
[2018-04-13] MEDS: Heparin VIAL(*) 5000 UNITS/ML VIAL (FIVE THOUSAND) SUBCUT SCH (05:28)
[2018-04-13] MEDS ORDERED: Aspirin EC TAB* 81 MG TAB.EC PO SCH (09:00)
[2018-04-13] MEDS ORDERED: Pantoprazole TAB * 40 MG TAB PO SCH (09:00)
[2018-04-13] MEDS ORDERED: Lisinopril TAB* 5 MG PO SCH (09:00)
[2018-04-13] MEDS ORDERED: CMCS:Budesonide CAP(NF) 3 MG PO SCH (09:00)
[2018-04-13] MEDS ORDERED: Multivitamins/Minerals TAB PO SCH (09:00)
[2018-04-13] MEDS ORDERED: Atorvastatin* 80 MG TAB PO SCH (09:00)
[2018-04-13 11:21] VITALS: BP 120/40
--- NOTE | 2018-04-14 01:23 | DS ---
DISCHARGE SUMMARY: DATE OF ADMISSION: 04/12/18 DATE OF DISCHARGE: 04/13/18 PRIMARY DIAGNOSES: 1. Chest pain. 2. Sinus bradycardia. SECONDARY DIAGNOSES: 1. Hypertension. 2. Hyperlipidemia. 3. Microscopic colitis. HOSPITAL COURSE: A 67-year-old female with history of hypertension, hyperlipidemia, microscopic coli tis, came into the hospital with complaints of chest pain. Patient was seeing her primary care docles paiz for preop evaluation of the right total knee replacement that is scheduled next week and described episode of severe ingestion 2 to 3 days ago. When the EKG was being performed, patient was noted to be bradycardiac and a heart rate drop for concern of ACS. Patient was sent to the hospital for furth er evaluation. Patient had 3 troponins that were noted to be negative. Patient also has a history o f acid reflux, which improved with Rolaids. Please refer to the history and physical for further det ails. Patient follows up with Dr. Lopez as an outpatient. Concerningly, the patient was noted to have heart rate in the 40s, but in review of the telemetry monitoring, patient not noted to have any heart block and has been preserving her P waves. Patient also not noted to have any long pauses on t he monitor. Patient noted to have sinus bradycardia with the heart rate in the 40s, and patient also noted to have some Q-waves in her inferior lead. Troponins noted to be negative. Patient does not have any further chest pain. Patient insists that she wants to go home today. Patient was offered s taying further in the hospital and evaluating her bradycardia but patient wants to go home. In light of this, Holter monitor cannot be arranged over the weekend. In discussion with Cardiology, patient advised to call her technical spec on Sunday and decide on further management. Patient may benefit fr om Holter monitoring as an outpatient. Patient also described an episode when she was worked up for bradycardia 10 years ago when her children were teenagers and at that time, she was noted to have a 4 second pause. In light of all this, will definitely benefit from further evaluation. Also, the wilberto lea currently has had serial troponins noted to be negative. Further stress testing as an outpatien t per discretion of her technical spec. All this has been discussed in detail with the patient and wilberto lea wishes to go home. Patient advised to come back to the hospital if she had any episodes of ches t pain, shortness of breath, dizziness or slow or rapid heart rate. Two daughters also at bedside an d understand this and assure that she will follow up with Cardiology and her primary care doctor as a n outpatient. PHYSICAL EXAMINATION: Vitals and labs noted to be stable at time of discharge. Temperature 98.6, pul se 48, respiratory rate 18, oxygen saturation 97%, blood pressure 120/40. Patient reports that she h as had a low heart rate for many years. HEENT: NCAT. Heart: S1, S2 present. Regular at the time o f exam. Lungs: Clear to auscultation bilaterally. Abdomen: Soft. Extremities: No edema. Neuro: Alert, oriented x3. MEDICATION LIST AT THE TIME DISCHARGE: 1. Omeprazole 40 mg p.o. every day. 2. Multivitamin. 3. Lisinopril 5 mg p.o. every day. 4. Cetirizine 10 mg daily. 5. Budesonide 9 mg p.o. q.a.m. 6. Atorvastatin 80 mg p.o. every day. 7. Aspirin 81 mg p.o. q.a.m. 8. Albuterol inhaler as needed. 9. Tylenol. No changes to her medications had been made at this time and patient not on a beta- [place] or any ra te limiting drugs. TIME SPENT: Total time spent on discharge equal to 40 minutes. [id number] #: [id number]
== END 2018-04-13 13:10 | disposition home or self-care (01) ==
LOC: ED 13:11 → MEDTELE 16:58
PROVIDERS: ADMIT Hospitalist; ATTEND Internal Medicine
DX: R07.9 Chest pain, unspecified (principal); R00.1 Bradycardia, unspecified; I10 Essential (primary) hypertension; E78.5 Hyperlipidemia, unspecified; K52.839 Microscopic colitis, unspecified; Z79.82 Long term (current) use of aspirin; F17.210 Nicotine dependence, cigarettes, uncomplicated
CPT/HCPCS: 36415; 71045; 80053; 83605; 84484; 85025; 93005; 96372; 99284; A9270-GY; G0378; J1644

== ENCOUNTER 2018-05-07 12:00 | Inpatient (IN) | payer MEDICARE ==
--- NOTE | 2018-04-24 13:33 | HP ---
HISTORY AND PHYSICAL: DATE OF SURGERY: 05/07/18 DATE OF OFFICE VISIT: 04/24/18 SURGEON: Jazzy Garrett MD.* (DICTATED BY AMANDA MOONEY) PROCEDURE: Right total knee arthroplasty. CHIEF COMPLAINT: Right knee pain. HISTORY OF PRESENT ILLNESS: Ms. Martinez is a 57-year-old female with continued complains of right knee pain. She has failed conservative treatment and elected to proceed with the right total knee arthroplasty. PAST MEDICAL HISTORY: Hypertension, high cholesterol, asthma, and GERD. PAST SURGICAL HISTORY: , right thumb surgery, right knee scope, and tonsillectomy. CURRENT MEDICATIONS: 1. Atorvastatin. 2. Calcium 80 mg q.h.s. 3. Flovent Diskus 2 puffs daily. 4. Budesonide 3 mg 3 capsules a day. 5. Omeprazole 20 mg a day. 6. Zyrtec Allergy. 7. Lisinopril 5 mg a day. 8. Tylenol as needed. 9. Escitalopram daily. ALLERGIES: No known drug allergies. FAMILY HISTORY: Coronary artery disease, diabetes, cancer, and stroke. SOCIAL HISTORY: She is a 67-year-old female. She lives with her grandchildren. She quit smoking last August 2017. She denies use of drugs or alcohol. REVIEW OF SYSTEMS: A complete 14-point review of systems was reviewed with the patient, is positive for GERD and occasional shortness of breath. She denies history of DVT, PE, hepatitis, HIV, or anesthesia problems PHYSICAL EXAMINATION GENERAL: She is well developed, well-nourished in no acute distress. VITAL SIGNS: She stands 5 feet tall, weighs 190 pounds, her blood pressure 138/ 70, her heart rate is 45. HEENT: Normocephalic, atraumatic. NECK: Supple. No palpable lymph nodes. PULMONARY: Lungs are clear to auscultation bilaterally. CARDIO: Regular rate and rhythm. Strong S1 and S2. ABDOMEN: Soft, nontender, nondistended. NEUROLOGIC: She is alert and oriented x3. MUSCULOSKELETAL: Right lower extremity, the skin is intact. There is no open wounds or abrasions. There is a moderate to large effusion. Range of motion is 10 to 125 degrees of flexion with patellofemoral crepitus. Her calf is soft and nontender. She has a 2+ dorsalis pedis pules. She is able to dorsiflexion , plantarflexion, and has intact sensation. ASSESSMENT AND PLAN: Ms. Martinez is a 67-year-old female with end-stage osteoarthritis on the right knee. She has failed conservative treatment and elected to proceed with a right total knee arthroplasty. The surgery scheduled for 05/07/[address] Garrett discussed the risks and benefits of the surgery on today's visit and all of her questions were answered. She will follow up with Dr. Garrett 2 weeks after the surgery. AMANDA MOONEY [id number]/[facility] #: [id number] [place]TD[place]
--- NOTE | 2018-06-24 09:33 | HP ---
HISTORY AND PHYSICAL: DATE OF SURGERY/ADMISSION: 07/02/18 DATE OF OFFICE VISIT: 06/21/18 SURGEON: Jazzy Garrett MD.* (DICTATED BY AMANDA MOONEY) PROCEDURE: Right total knee arthroplasty. CHIEF COMPLAINT: Right knee pain. HISTORY OF PRESENT ILLNESS: Ms. Martinez is a 67-year-old female with continued complaints of right knee pain. She has failed conservative treatment and elected to proceed with a right total knee arthroplasty. PAST MEDICAL HISTORY: Hypertension, high cholesterol, GERD, and COPD. PAST SURGICAL HISTORY: Bilateral knee surgery, , left finger surgery, nasal surgery, tonsillectomy, adenoidectomy. CURRENT MEDICATIONS: 1. Atorvastatin calcium 80 mg q.h.s. 2. Advair Diskus 2 puffs daily. 3. Budesonide 3 mg 3 capsules daily. 4. Omeprazole 20 mg a day. 5. Zyrtec Allergy as needed. 6. Lisinopril 5 mg a day. 7. Tylenol as needed. 8. Citalopram daily. 9. Aspirin 81 mg day. 10. Vitamin E. 11. Calcium and multivitamin. ALLERGIES: No known drug allergies. FAMILY HISTORY: Coronary artery disease, diabetes, thyroid disease, stroke, and cancer. SOCIAL HISTORY: She is a 67-year-old female with 2 grandchildren. She quit smoking cigarettes approximately a year ago. Denies use of illicit drugs or alcohol. REVIEW OF SYSTEMS: A complete 14-point review of systems was reviewed with the patient, positive for GERD and COPD. She denies a history of DVT, PE, hepatitis , HIV, or anesthesia problems. PHYSICAL EXAMINATION GENERAL: She is well developed, well nourished, in no acute distress. VITAL SIGNS: She stands 5 feet 2 inches tall, weighs 191 pounds. Her blood pressure is 112/80, heart rate 62. HEENT: Normocephalic, atraumatic. NECK: Supple. No palpable lymph nodes. PULMONARY: The lungs are clear to auscultation bilaterally. CARDIO: Regular rate and rhythm. Strong S1, S2. ABDOMEN: Soft, nontender, nondistended. NEUROLOGICAL: She is alert and oriented x3. MUSCULOSKELETAL: Right lower extremity, the skin is intact. There are no open wounds or abrasions. There is a moderate effusion of the right knee. Some tenderness over the medial and lateral joint line. She walks with an antalgic type gait. She is able to dorsiflex and plantarflex with 2+ dorsalis pedis pulse and intact sensation. ASSESSMENT AND PLAN: Ms. Martinez is a 67-year-old female with end-stage osteoarthritis of the right knee. She has failed conservative treatment and elected to proceed with a right total knee arthroplasty. Surgery scheduled for 07/02/[address] Garrett discussed the risks and benefits of the surgery on today's visit and all of her questions were answered. She will follow up with Dr. Garrett 2 weeks after the surgery. AMANDA MOONEY [id number]/[facility] #: [id number] MTDD
[2018-07-01] MEDS ORDERED: Buffered Lidocaine 1% SYRIN* 1 ML/SYRINGE INTRADERM ONE (15:13)
[2018-07-01] MEDS ORDERED: Gabapentin CAP(*) 300 MG PO ONE (15:14)
[2018-07-02] MEDS ORDERED: Tranexamic Acid 1,000 MG in NS 0.9% 50 ML* (outpatient use) IV SCH ×2
--- OUTSIDE RECORDS SUMMARY | 2018-07-02 05:49 | XMS REPORT | Continuity of Care Document ---
:1950 External Reference #:[id number] Author Name Aziza Norton M.D. Address [address] [place] [address] Care Team Providers Name Role Phone Aziza Norton Care Team Information [employer] Associate Unavailable Aziza Norton Primary Care Physician Unavailable Payers Date Identification Numbers Payment Provider Subscriber Effective: 2018 Policy Number: [id number] [employer] Medicare Ppo Steph Warren PayID: [id number] [address] [place] [address] Effective: 2016 Policy Number: [id number] Medicare [place] Steph Warren Expires: 2018 PayID: [id number] [facility] [address] Advance Directives Description No Information Available Problems Active Problems Provider Date Arthralgia of the pelvic region and thigh Emilia Martínez M.D. Onset: 2010 Essential hypertension Emilia Martínez M.D. Onset: 11/09/2010 Pure hypercholesterolemia Emilia Martínez M.D. Onset: 11/09/2010 Vitamin D deficiency Emilia Martínez M.D. Onset: 11/09/2010 Tobacco user Emilia Martínez M.D. Onset: 11/09/2010 Moderate recurrent major depression Emilia Martínez M.D. Onset: 11/09/2010 Intrinsic asthma without status asthmaticus Emilia Martínez M.D. Onset: Arthralgia of the lower leg Emilia Martínez M.D. Onset: 02/10/2011 Colitis, enteritis and gastroenteritis Aziza Norton M.D. Onset: 2011 presumed infectious Acute sinusitis Clifford Alford M.D. Onset: 04/15/2015 Bronchitis Clifford Alford M.D. Onset: 04/15/2015 Hyperlipidemia Clifford Alford M.D. Onset: 04/15/2015 Gastrointestinal infection Aziza Norton M.D. Onset: 05/31/2015 Mild persistent asthma Aziza Norton M.D. Onset: 06/28/2016 Gastroesophageal reflux disease Aziza Norton M.D. Onset: 08/02/2016 Mixed hyperlipidemia Aziza Norton M.D. Onset: 08/02/2016 Gastrointestinal infection Aziza Norton M.D. Onset: 04/12/2018 Family History Date Family Member(s) Observation Comments General No fam hx lung, colon CA. Father 82 dt emphysema, smoker. Mother 80. [place]. CAD. DM. HTN. Number of Children 2 daughters. 1 in [place], 1 in [place]- DM, s/p bariatric surgery,bipolar. Number of Siblings 3/5 surviving sisters. 2 brothers live in [place], healthy. First Sister age 68. breast cancer Second Sister dt Brain tumor . Third Sister lives near [place]. Fourth Sister healthy. Lives in [place]. Fifth Sister healthy. Lives in [place]. Social History Type Date Description Comments Sex Unknown Marital Status Patient is . 2003 due to myeloma. Living Situation [place] daughter lives her and 2 granddaughters (youngest daughters kids) patient has custody of the 2 girls. Youngest in granddaughter at [employer]. 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 Tobacco Use Start: Unknown End: Former Cigarette Smoker quit as of July or Unknown August 2017. 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 Tobacco Use Start: Unknown End: Patient is a former Unknown smoker Smoking Status Reviewed: 06/11/18 Patient is a former smoker Exercise Exercises regularly. Type/Frequency Current Uses treadmill weekly. walks a lot, mows lawn with a push mower. some weight lifting (5#)and stretching at home. Allergies, Adverse Reactions, Alerts Active Allergies Reaction Severity Comments Date Tobramycin itchy, painful 05/19/2009 Medications Active Medications SIG Qnty Indications Ordering Date Provider Vitamin D take 1 capsule by 8caps Aziza Muniz 06/20/2018 (Ergocalciferol) mouth once weekly Rhina Norton for 8 weeks. [id number] Capsules Escitalopram Oxalate take 1 tablet by 90tabs F17.210 Aziza Muniz 09/21/2017 mouth once daily Rhina Norton 5mg Tablets (90-Day Conversion Request) Diclofenac Sodium apply small amount 100gm M19.031 Aziza Muniz 09/21/2017 3% twice daily to Rhina Norton Gel right wrist Advair Diskus inhale up to two 60units J45.30 Aziza Muniz 08/02/2016 puff by mouth Rhina Norton 250-50mcg/Dose twice daily Aerosol samples Omeprazole take 1 capsule by 30caps K21.9 Rebecca Waka, 08/02/2016 40mg mouth once daily MJerrica Capsules Ketoconazole apply thin layer 60units 110.5 Aziza Muniz 06/28/2016 2% Cream twice a day to Rhina Norton affected area. 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 Family Medicine 01/05/2014 [facility] 81mg Chewtabs [place] Lisinopril take 1 tablet by 90tabs Aziza Muniz 10/01/2012 5mg Tablets mouth once daily Rhina Norton (90-Day Conversion Request) Atorvastatin Calcium take 1 tablet once 90tabs Aziza Muniz 02/10/2011 daily Rhina Norton 80mg Tablets Multi Vitamin Womens Unknown 11/09/2010 Plus Iron Tablets Tylenol Arthritis 2 po bid Unknown Pain 650mg Tablets ER Zyrtec Allergy 1 by mouth every Unknown 10mg day Capsules History Medications Amoxicillin 1 tab twice a day 20tabs J01.90 Aziza Muniz 04/29/2018 - 875mg x 10 days Rhina Norton 06/11/2018 Tablets Nicotine Transdermal 1 patch topically 28units F17.210 Aziza Muniz 2017 - System per day x 1 Rihna Norton 04/12/2018 21mg/24HR month. Patches 24HR Mupirocin apply small 22gm J31.0 Aziza Muniz 03/21/2017 - 2% Ointment amount both nares Rhina Norton 09/21/2017 twice daily. Amoxicillin 1 tab twice a day 20tabs J01.90 Aziza Muniz 11/15/2016 - 875mg x 10 days Rhina Norton 03/21/2017 Tablets Amoxicillin 1 tab twice a day 14tabs J01.90 [place] 05/26/2016 - 875mg x 7 days Kelsie, [employer] ATT[employer] 06/28/2016 Tablets Vitamin D take 1 capsule by 12caps Aziza Muniz 06/03/2015 - (Ergocalciferol) mouth once weekly Rhina Norton 05/25/2016 for 12 weeks. 07202Fcyj Capsules Zostavax in ject sq 1units Aziza Muniz 05/31/2015 - pudt Rhina Norton 05/25/2016 33608Ytt/0.65ML Solution Rec Acetaminophen-Codein 1-2 by mouth at 60tabs M25.561 Aziza Muniz 04/26/2015 - e #3 at bedtime for Rhina Norton 05/25/2016 300-30mg Tablets pain Physical Therapy evaluate and M25.561 Aziza Muniz 04/26/2015 - treat r knee pain Rhina Norton 05/25/2016 Levofloxacin 1 by mouth every 10tabs J01.80 Clifford Alford, 04/15/2015 - 500mg day Rhina 05/25/2016 Tablets Levofloxacin 1 by mouth every 7tabs 461.9 Victor Manuel Justice, 08/27/2014 - 500mg day Rhina 09/03/2014 Tablets Cefdinir 1 by mouth twice 20caps 461.8 Aziza Muniz 05/04/2014 - 300mg daily for 10days Rhina Norton 07/03/2014 Capsules Ketoconazole apply thin layer 60units 110.5 Aziza Muniz 05/04/2014 - 2% Cream twice a day to Rhina Norton 05/25/2016 affected area. Budesonide ER 3 by mouth once 180caps A09 Aziza Muniz 05/04/2014 - 3mg daily Rhina Norton 09/18/2015 Caps ER 24HR Jarratt 3 1-2 by mouth Family Medicine 01/05/2014 - 1000mg every day [facility] 07/03/2014 Capsules [place] Azithromycin 2 by mouth today. 12tabs 461.1 Aziza Muniz 01/05/2014 - 250mg 1 by mouth daily Rhina Norton 05/04/2014 Tablets x 4 Repeat as necessary Azithromycin 2 po today. 1 po 6tabs Aziza Muniz 10/07/2013 - 250mg daily x 4 Rhina Norton 01/05/2014 Tablets Augmentin 1 po bid with 20tabs 786.2 Aziza Muniz 09/29/2013 - 875-125mg yogurt or kefir. Rhina Norton 01/05/2014 Tablets Ventolin HFA 2 puffs bid x 3 1inhaler 786.2 [place] 06/05/2013 - weeks; also 2 ANMOL Iglesias 04/15/2015 108(90Base) mcg/Act puffs daily to Aerosol prep for physical exertion Cheratussin ac 5 ml every 12 hrs 150ml 786.2 [place] 06/05/2013 - prn cough [facility], [facility] 09/29/2013 100-10mg/5ML Syrup Azithromycin 2 tabs po today, 9tabs 786.2 [place] 06/05/2013 - 250mg 2 tabs po Kelsie, [facility] 09/29/2013 Tablets tomorrow, then 1 tab po daily x 5 days Omeprazole 1 by mouth qd- 60caps K21.9 Aziza Muniz 04/29/2013 - 20mg twice a day Rhina Norton 08/02/[address] Voss HFNoe 2 puffs every 4 1units Arleen Zafar, 03/05/2013 - hours as needed [facility] 08/27/2014 108(90Base) mcg/Act for cough Aerosol Lisinopril 1 po qd 90tabs Aziza Muniz 09/13/2012 - 10mg Rhina Norton 10/01/2012 Tablets Lisinopril/Hydrochlo Take 1/2 Tab 45tabs Aziza Muniz 08/09/2012 - rothiazide Daily Rhina Norton 09/13/2012 10-12.5mg Tablets Clarithromycin 20tabs 461.8 Aziza Muniz 06/06/2012 - 500mg Rhina Norton 06/06/2012 Tablets Meclizine HCL 1-2 po qid 60tabs 386.11 Aziza Muniz 06/06/2012 - 12.5mg Rhina Norton 09/29/2013 Tablets Sulfamethoxazole/Tri 1 po bid x 10 28tabs 461.8 Aziza Muniz 06/06/2012 - methoprim DS Rhina Norton 09/29/2013 800-160mg Tablets Budesonide take 3 capsules 180caps 009.1 Aziza Muniz 12/27/2011 - 3mg Caps once daily Rhina Norton 05/04/2014 ER 24HR Off Work May return to Aziza Muniz 11/07/2011 - 11/06-11/09/2011. work 11/12/2011 Rhina Norton 12/27/2011 Ondansetron HCL 1 po q6-8 hrs prn Family Medicine 11/06/2011 - 4mg for [facility] 12/27/2011 Tablets nausea/vomiting [place] Hydrocodone/Acetamin 1 po q4-6h prn 60tabs [facility]hal 11/06/2011 - ophen pain istop ref# Kelsie, [facility] 09/29/2013 5-500mg Tablets [id number] Avelox 1 po qd [facility] 11/06/2011 - 400mg Tablets [facility] 06/06/2012 [place] Off Work Note. Off return to work on 486 Aziza Flavio 11/06/2011 - Work 11/06- 11/12/2011. Rhina Norton 11/07/2011 Proair HFA 2 puffs every 4 1units Emilia Martínez, 02/10/2011 - hours as needed M.D. 03/05/2013 108(90Base) mcg/ac for cough Aerosol Ergocalciferol one po weekly 12caps 268.9 Aziza L. 02/10/2011 - Rhina Norton 05/04/2014 47976Cthh Capsules Atorvastatin Calcium 1 po daily 30tabs 401.9 Emilia Martínez, 02/10/2011 - M.D. 12/27/2011 80mg Tablets Lisinopril/Hydrochlo Take 1 Tablet By 90tabs Emilia Martínez, 01/29/2011 - rothiazide Mouth Daily M.D. 02/10/2011 10-12.5mg Tablets Budesonide 3 po qd 270caps Emilia Martínez, 01/13/2011 - 3mg Caps M.D. 12/27/2011 ER 24HR Ventolin HFA 2 puffs qd-qid 1units 493.10 Arleen Zafar, 12/02/2010 - [employer]ANT ATT[employer] 02/10/2011 108(90Base) mcg/ac Aerosol Robitussin A-C 1-2 tsp po q4h 4Oz 461.9 Arleen Zafar, 12/02/2010 - prn cough [facility] 02/10/2011 Azithromycin take 2 tablets by 13tabs 461.9 Arleen Zafar, 12/02/2010 - 250mg mouth x 3d then [employer] 02/10/2011 Tablets take 1 tablet daily for next 7 days Chantix Starter Pack use as directed 1Pack 305.1 Emilia Carreranick, 2010 - and call for M.D. 11/06/2011 maintenance medication Zithromax 2 po qd today , 1tabs 466.0 Emilia Martínez, 03/04/2010 - 250mg then 1 po qd M.D. 03/13/2010 Tablets times 4 Advair Diskus 1 puff bid 1units 466.0 Emilia HeartNallely Martínez, 03/04/2010 - M.D. 03/04/2010 250-50mcg/Dose Aerosol Flovent HFA 2 puff bid 10.600gm 466.0 Emilia HeartNallely Martínez, 03/04/2010 - 44mcg/Act M.D. 02/10/2011 Aerosol 493.10 Lipitor 1 po qd 90tabs Emilia Gordon Tanya, 01/13/2010 - 80mg Tablets M.D. 02/10/2011 Nicotine apply to skin 28units 305.1 Emilia MNallely Martínez, 12/31/2009 - 7mg/24HR in the morning M.D. 05/06/2010 Patches 24HR and remove at bedtime Prilosec 1 po bid 60caps [facility], 07/14/2009 - 20mg Capsules [facility]- 12/31/2009 DR [place] pt was seen in [facility], 05/19/2009 - this office [facility] 05/21/2009 today, will return to work 05/20/09 Ciprofloxacin HCL 2 gtts ou q 4 5ml 372.00 [facility], 05/17/2009 - 0.3% hours until np-C 05/26/2009 Solution clear then 1 more day , do not exceed 1 week use Patanol 2 gtts in 5ml 372.00 Emilia SlyNallely Martínez, 05/17/2009 - 0.1% Solution affected eye M.D. 05/06/2010 bid prn Guafenesin 2 po bid 30units 382.9 Emilia SlyNallely Martínez, 05/17/2009 - 600mg M.D. 07/14/2009 Out Of Work out of work Lisbeth Hinds, 05/13/2009 - from 05/11 Afnp-C 05/20/2009 through 05/16 due to illness; may return 05/17/09 Tobrex 2 gtts both 5ml 372.00 Lisbeth Flowersigne, 05/13/2009 - 0.3% Solution eyes q 4 hrs x Afnp-C 05/17/2009 4-5 days Cortisporin Otic 4 drops in 1Bottle 382.9 Emilia Gordon Tanya, 05/10/2009 - right ear qid M.DNallely 07/14/2009 Suspension for one week Amoxicillin 1 po tid for 7 21tabs 382.9 Emilia HeartNallely Deandrenick, 05/10/2009 - 500mg days M.D. 07/14/2009 Tablets Note For Work pt. is ill and 382.9 Emilia HeartNallely Martínez, 05/10/2009 - was seen in the M.DNallely 05/06/2010 office today, she will follow up in two days and is not to work until then Lisinopril-Hydrochlor 1/2 tablet po 45tabs 401.9 Aziza Muniz 05/10/2009 - othiazide qd Rhina Norton 09/13/2012 10-12.5mg Tablets Diovan HCT 1 po daily 30tabs 719.46 Emiliasherin Martínez, 04/27/2009 - 160-12.5mg M.DNallely 11/09/2010 Tablets Flector Patch apply to 30units 719.46 Emilia HeartNallely Martínez, 12/15/2008 - painful area M.DNallely 05/06/2010 bid Amoxicillin 1 tid x 10 days 30tabs 465.8 Lisbeth Guzman, 10/15/2008 - 500mg Afnp-C 10/25/2008 Tablets Ergocalciferol one po weekly 12caps 268.9 Emilia Martínez, 08/07/2008 - M.DNallely 02/10/2011 50,000Units Capsule Abilify 1/2 po qd 30tabs [facility] 08/07/2008 - 5mg Tablets [facility] 05/06/2010 [place] Compression Stockings to knee, wear 2units 719.46 Emilia HeartNallely Martínez, 2008 - as needed M.DNallely 07/14/2009 14mm HG Aleve 2 po bid Unknown - 220mg Capsules 04/17/2018 Jarratt-3 Krill Oil 2 by mouth Unknown - 300mg every day 05/25/2016 Capsules Calcium 600 With 1 po qd Unknown - Vitamin D 08/27/2014 [id number]-Vxlz Chewtabs Vitamin D Unknown - 02/10/2011 Albuterol Sulfate 2 puffs q 4hrs 1units Emilia HeartNallely Tanya, - prn M.D. 12/05/2010 Powder Lipitor 1 po qhs 90tabs Emilia Martínez, - 40mg Tablets M.D. 01/13/2010 Nexium 1 Cup 2X Day Unknown - 40mg Packet 05/10/2009 Diclofenac Sodium 1 PO bid Unknown - 75mg 10/15/[address] Loperamide HCL 2 Q Am Unknown - 2mg 11/09/2010 Capsules Citalopram 1 1/2 PO qd Unknown - Hydrobromide 05/06/2010 40mg Tablets Diovan HCT 1 po qd 90tabs Emilia Martínez, - 160/25mg M.D. 04/27/2009 Tablets Entocort Ec Q Am Unknown - 3mg Caps ER 02/10/2011 24HR Immunizations CPT Code Status Date Vaccine Lot # [id number] Given 12/05/2017 High-Dose, Influenza Virus Vacccine-fluzone 65 [id number] and older 82565 Given 11/15/2016 High-Dose, Influenza Virus Vacccine-fluzone 65 [id number] and older 05795 Given 06/03/2015 Zostivax [id number] Given 04/26/2015 Tdap Tetanus, W Pertussis [id number] 63052 Given 11/16/2014 Influenza Vac, Quadrivalent, Slit Virus, Im [id number] 97794 Given 11/16/2014 Pneumococcal Conjugate Vacc-13 [id number] 32549 Given 01/05/2014 Influenza Vac, Quadrivalent, Slit Virus, Im [id number] 52068 Given 03/05/2013 Preservative free flu 3 yrs+ and older [id number] 77303 Given 12/27/2011 Pneumococcal Immunization [id number] 53324 Given 12/27/2011 DO Not Use Split Influenza Virus Vaccine [id number] 60607 Given 11/09/2010 DO Not Use Split Influenza Virus Vaccine [id number] 76482 Given 12/31/2009 DO Not Use Split Influenza Virus Vaccine [id number] Vital Signs Date Vital Result Comment 06/11/2018 2:15pm BP Systolic 160 mmHg BP Diastolic 80 mmHg Heart Rate 54 /min Body Temperature 97.9 F Respiratory Rate 16 /min Height 61 inches 5'1" Weight 190.00 lb BMI (Body Mass Index) 35.9 kg/m2 04/18/2018 3:41pm BP Systolic 102 mmHg BP Diastolic 62 mmHg Heart Rate 68 /min Body Temperature 97.7 F Height 61 inches 5'1" Weight 189.00 lb BMI (Body Mass Index) 35.7 kg/m2 04/12/2018 10:21am BP Systolic 120 mmHg BP [...] Date Facility Test Result H/L Range Note Urinalysis Profile 06/21/2018 [facility] Urine Color Yellow Urine Appearance Clear Urine Specific [place] 1.024 N 1.010-1.030 Urine pH 5.0 N 5-9 Urine Urobilinogen Negative Negative Urine Ketones Negative Negative Urine Protein Negative Negative Urine Leukocytes 1+ Abnormal Negative Urine Blood Negative Negative Urine Nitrite Negative Negative Urine Bilirubin Negative Negative Urine Glucose Negative Negative Urine White Blood Cell Trace(0-5/hpf) Absent Urine Red Blood Cell Absent Absent Urine Bacteria Absent Absent Urine Squamous Epithelial Cell Present Abnormal Absent Laboratory test finding 06/11/2018 fami Vitamin D25 13 Low 30-100 Comprehensive Metabolic Prof 06/11/2018 fami Sodium 142 mEq/L 134-149 Potassium 4.0 mEq/L 3.6-5.5 Chloride 102 mEq/L 94-112 Carbon Dioxide 23 mEq/L 21-32 Glucose 106 mg/dL High 70-105 BUN 17 mg/dL 6-26 Creatinine 0.7 mg/dL 0.6-1.4 BUN/Creat Ratio 24.3 CALC 8.0-36.0 Calcium 9.7 mg/dL 8.6-10.2 Total Protein 7.4 g/dL 6.4-8.3 Albumin 4.9 g/dL 3.8-5.5 Globulin 2.5 g/dL 2.0-4.8 A/G Ratio 2.0 CALC 0.6-2.3 Alk. Phosphatase 42 U/L 30-110 Alt (SGPT) 23 U/L 7-35 Ast (Sgot) 19 U/L 5-34 Total Bilirubin 0.5 mg/dL 0.2-1.3 GFR Non- >60 ml/min/1.73m^ >=60 GFR >60 ml/min/1.73m^ >=60 Lipid Profile 06/11/2018 fami Cholesterol 156 mg/dL 120-200 Triglycerides 153 mg/dL 30-200 HDL Cholesterol 48 mg/dL 30-85 LDL (Calculated) 77 CALC 0-129 VLDL Cholesterol 31 mg/dL 0-50 HDL Risk Factor 3.3 CALC 0.0-4.4 Laboratory test finding 06/11/2018 fami TSH 0.84 mIU/L 0.50-6.00 Urinalysis Profile 04/24/2018 [facility] Urine Color Straw 1 Urine Appearance Clear Urine Specific [place] 1.012 N 1.010-1.030 Urine pH 5.0 N 5-9 Urine Urobilinogen Negative Negative Urine Ketones Negative Negative Urine Protein Negative Negative Urine Leukocytes Negative Negative Urine Blood Negative Negative Urine Nitrite Negative Negative Urine Bilirubin Negative Negative Urine Glucose Negative Negative Inr/Protime 04/24/2018 [facility] Inr 0.89 N 0.77-1.02 Laboratory test finding 04/24/2018 [facility] Partial Thrombo 29.0 seconds N 26.0-36.3 2 Time PTT Type & Screen 04/24/2018 [facility] Patient Blood Type A Positive Antibody Screen NEGATIVE Urine Culture And 04/24/2018 [facility] Urine Culture SEE RESULT BELOW 3 Sensitivities Laboratory test finding 04/12/2018 [facility] Troponin I 0.00 ng/mL <0.04 4 Lactic Acid 1.0 mmol/L N 0.5-2.0 5 Comp Metabolic Panel 04/12/2018 [facility] Sodium 139 mmol/L N 135-145 Potassium 3.7 mmol/L N 3.5-5.0 Chloride 104 mmol/L N 101-111 Co2 Carbon Dioxide 26 mmol/L N 22-32 Anion Gap 9 mmol/L N 2-11 Glucose 92 mg/dL N 70-100 Blood Urea Nitrogen 20 mg/dL N 6-24 Creatinine 0.66 mg/dL N 0.51-0.95 BUN/Creatinine Ratio 30.3 High 8-20 Calcium 9.8 mg/dL N 8.6-10.3 Total Protein 7.3 g/dL N 6.4-8.9 Albumin 4.4 g/dL N 3.2-5.2 Globulin 2.9 g/dL N 2-4 Albumin/Globulin Ratio 1.5 N 1-3 Total Bilirubin 0.50 mg/dL N 0.2-1.0 Alkaline Phosphatase 37 U/L N 34-104 Alt 25 U/L N 7-52 Ast 16 U/L N 13-39 Egfr Non- 89.6 >60 Egfr 108.4 >60 6 CBC Auto Diff 04/12/2018 [facility] White Blood Count 7.6 10^3/uL N 3.5-10.8 Red Blood Count 4.30 10^6/uL N 4.00-5.40 Hemoglobin 13.6 g/dL N 12.0-16.0 Hematocrit 41 % N 35-47 Mean Corpuscular Volume 95 fL N 80-97 Mean Corpuscular Hemoglobin 32 pg High 27-31 Mean Corpuscular HGB Conc 34 g/dL N 31-36 Red Cell Distribution Width 14 % N 10.5-15 Platelet Count 232 10^3/uL N 150-450 Mean Platelet Volume 8.4 fL N 7.4-10.4 Abs Neutrophils 5.2 10^3/uL N 1.5-7.7 Abs Lymphocytes 1.8 10^3/uL N 1.0-4.8 Abs Monocytes 0.4 10^3/uL N 0-0.8 Abs Eosinophils 0 10^3/uL N 0-0.6 Abs Basophils 0 10^3/uL N 0-0.2 Abs Nucleated RBC 0 10^3/uL Granulocyte % 68.7 % Lymphocyte % 24.3 % Monocyte % 5.8 % Eosinophil % 0.7 % Basophil % 0.5 % Nucleated Red Blood Cells % 0 Laboratory test finding 04/12/2018 [facility] Troponin I 0.00 ng/mL <0.04 7 Ua - Non Micro (Fma) 07/19/2017 Family Medicine Appearance clear (607)- - Color yellow Glucose, Urine (Fma/CMC/CTX) negative Bilirubin negative Ketones negative SP Grav <=1.005 Blood negative PH 5.5 Protein negative Urobil 0.2 Nitrite negative Leukocytes (Fma/CMC/Centrex) negative Laboratory test finding 06/28/2016 fami TSH 1.71 mIU/L 0.50-6.00 Comprehensive Metabolic Prof 06/28/2016 fami Sodium 141 mEq/L 134-149 Potassium 5.0 mEq/L 3.6-5.5 Chloride 104 mEq/L [...] GFR >60 ml/min/1.73m^ >=60 Lipid Profile 06/28/2016 fami Cholesterol 165 mg/dL 120-200 Triglycerides 161 mg/dL 30-200 HDL Cholesterol 47 mg/dL 30-85 LDL (Calculated) 86 CALC 0-129 VLDL Cholesterol 32 mg/dL 0-50 HDL Risk Factor 3.5 CALC 0.0-4.4 Laboratory test finding 06/28/2016 fami Free T4 0.82 ng/dL 0.75-1.54 Complete Blood Count 06/28/2016 fami WBC 4.6 x10^3/UL 3.6-9.6 RBC 4.37 x10^6/UL 3.90-5.70 HGB 14.0 g/dL 12.1-17.2 HCT 42 % 36-50 MCV 96.0 fL 82.2-97.4 MCH 32.1 pg 27.6-33.3 MCHC 33.6 g/dL 33.0-35.5 RDW 14.2 % High 11.6-13.7 PLT 233 x10^3/UL 150-400 MPV 8.4 fL 7.4-10.4 Gran # 2.7 x10^3/UL 1.5-7.2 Lymph# 1.8 x10^3/UL 0.7-4.9 [place]# 0.1 x10^3/UL 0.1-0.9 Gran % 55.5 % 42.2-75.2 Lymph % 41.2 % 20.5-51.1 [place]% 3.3 % 1.7-9.3 Laboratory test 06/28/2016 [facility] C-Reactive 0.6 mg/L 0.0-4.9 8 finding [address] [facility] Protein, [place] [address] (607)- - Laboratory test 05/31/2015 fami Vitamin D25 24 Low 30-100 finding Laboratory test 05/04/2015 [facility] Sedimentation Rate 7 finding (607)- - CBC Electronic 05/04/2015 [facility] WBC 6.4 3.6-9.6 (a) (607)- - RBC 4.05 3.90-5.70 Hemoglobin (Fma/CMC/CTX) 13.1 g/dL 12.1 - 17.2 Hematocrit (Fma/CMC/CTX) 39.6 % 36.1 - 50.3 Platelets 240 10^3/ul 150-400 Lymph% 35.2 % 17.0-48.0 Mixed% 2.8 Neutrophils % 62.0 Mean Corpuscular Vol 98 High 82.2-97.4 Mean Corpuscular Hemoglobin 32.4 27.6-33.3 Mean Corpuscular Hemo Concen 33.1 32.0-36.0 RDW 14.1 High 11.6-13.7 Mean Platelet Volume 7.6 5.5-11.0 Koki Panel-LD 05/04/2015 [facility] Antinuclear Negative 9, 10 ([facility]) [address] [facility] Antibodies, [place] [address] (607)- - Anti-dsDNA Antibodies <1 IU/mL 0-9 11 Hla B 27 Disease Association Negative 12 Sjogren's AB, 05/04/2015 [facility] Sjogren's <0.2 AI 0.0-0.9 Anti-SS-A/-SS-B [address] [facility] [place] [address] (604)- - Sjogren's Anti-SS-B <0.2 AI 0.0-0.9 Rheumatoid Arthritis 05/04/2015 [facility] Ra Latex 7.8 IU/mL 0.0-13.9 Factor ([facility]) [facility] [place] [address] ([phone])- - Antiextractable 05/04/2015 [facility] RUBBER TIRE CURER Antibodies <0.2 AI 0.0-0.9 Nuclear Antigens [address] [place] [phone] - Diego Antibodies <0.2 AI 0.0-0.9 CCP Abs Igg/Iga 05/04/2015 [facility] CCP Antibodies 5 units 0-[address] [place] [address] IgG/[place] [address] (438)- - Comprehensive 05/04/2015 fami Sodium 139 mEq/L 134-149 Metabolic Prof Potassium 4.1 mEq/L 3.6-5.5 Chloride 102 [...] >60 ml/min/1.73m^ >=60 GFR >60 ml/min/1.73m^ >=60 Laboratory test 12/08/2014 [facility] Surgical Pathology SEE RESULT BELOW 14 finding Laboratory test 08/28/2014 [facility] Stool Culture SEE RESULT BELOW 15, 16 finding Laboratory test 08/28/2014 [facility] O&P: SEE RESULT BELOW 17 finding Giardia/Cryptospor Screen Fecal Fat 08/28/2014 [facility] Fecal Fat, Total 1 g N Weight Fecal Fat, Collection Duration Random h N 18 Stool Fat % 28 %fat Abnormal < 20 19 Surgical Pathology 05/06/2014 [facility] S RUN DATE: SEE NOTE> 20 Complete Blood Count 05/04/2014 fami WBC 8.0 x10^3/UL 3.6-9.6 RBC 4.03 x10^6/UL 3.90-5.70 HGB 13.0 g/dL 12.1-17.2 HCT 38 % 36-50 MCV 95.0 fL 82.2-97.4 MCH 32.4 pg 27.6-33.3 MCHC 34.0 g/dL 33.0-35.5 RDW 11.9 % 11.6-13.7 PLT 232 x10^3/UL 150-400 MPV 8.9 fL 7.4-10.4 Gran # 5.5 x10^3/UL 1.5-7.2 Lymph# 2.3 x10^3/UL 0.7-4.9 [place]# 0.2 x10^3/UL 0.1-0.9 Gran % 67.0 % 42.2-75.2 Lymph % 29.7 % 20.5-51.1 [place]% 3.3 % 1.7-9.3 [facility] Met[facility] Prof [facility] Sodium 143 mEq/L 134-149 Potassium 3.8 mEq/L 3.6-5.5 Chloride 107 mEq/L [...] Bilirubin 0.3 mg/dL 0.2-1.3 Lipid Profile 05/04/2014 [facility] Cholesterol 165 mg/dL 120-200 Triglycerides 202 mg/dL High 30-200 HDL Cholesterol 47 mg/dL 30-85 LDL (Calculated) 78 CALC 0-129 VLDL Cholesterol 40 mg/dL 0-50 HDL Risk Factor 3.5 CALC 0.0-4.4 Laboratory test finding 05/04/2014 fami Free T3 2.60 pg/mL 2.00-4.90 21 Free T4 0.92 ng/dL 0.75-1.54 Vitamin D25 33 30-100 TSH 4.04 mIU/L 0.50-6.00 Ua - Non Micro (Fma) 05/04/2014 Family Medicine Appearance clear (607)- - Color yellow Glucose, Urine (Fma/CMC/CTX) - Bilirubin - Ketones - SP Grav 1.015 Blood - PH 5.5 Protein - Urobil 0.2 Nitrite - Leukocytes (Fma/[facility]) - Ua - Non Micro (Fma) 04/29/2013 Family Medicine Appearance CLEAR (607)- - Color YELLOW Glucose NEGATIVE Bilirubin NEGATIVE Ketones NEGATIVE SP Grav 1.010 Blood NEGATIVE PH 6.0 Protein NEGATIVE Urobil 0.2 Nitrite NEGATIVE Leukocytes (Fma/[facility]) NEGATIVE Comprehensive Metabolic Prof 04/25/2013 fami Sodium 136 mEq/L 134-149 Potassium 3.8 mEq/L 3.6-5.5 Chloride 97 mEq/L [...] Bilirubin 0.4 mg/dL 0.2-1.3 Lipid Profile 04/25/2013 [facility] Cholesterol 233 mg/dL High 120-200 Triglycerides 194 mg/dL 30-200 HDL Cholesterol 46 mg/dL 30-85 LDL (Calculated) 148 CALC High 0-129 VLDL Cholesterol 39 mg/dL 0-50 HDL Risk Factor 5.1 CALC High 0.0-4.4 Laboratory test finding 04/25/2013 [facility] Vitamin D25 20 Low 30-100 22 Complete Blood Count 04/25/2013 [facility] WBC 5.2 x10^3/UL 3.6-9.6 RBC 4.23 x10^6/UL 3.90-5.70 HGB 13.4 g/dL 12.1-17.2 HCT 40 % 36-50 MCV 94.0 fL 82.2-97.4 MCH 31.7 pg 27.6-33.3 MCHC 33.7 g/dL 33.0-35.5 RDW 12.4 % 11.6-13.7 PLT 203 x10^3/UL 150-400 MPV 8.8 fL 7.4-10.4 Gran # 2.9 x10^3/UL 1.5-7.2 Lymph# 2.1 x10^3/UL 0.7-4.9 [place]# 0.2 x10^3/UL 0.1-0.9 Gran % 54.2 % 42.2-75.2 Lymph % 40.8 % 20.5-51.1 [place]% 5.0 % 1.7-9.3 Laboratory test finding 04/25/2013 [facility] TSH 3.35 mIU/L 0.50-6.00 Comprehensive Metabolic Prof 06/06/2012 [facility] Albumin 4.8 g/dL 3.8-5.5 Alk. Phos. 54 U/L 30-110 Alt (SGPT) [...] BUN/Creat Ratio 30.9 Calc 8.0-36.0 Laboratory test finding 06/06/2012 fami Free T4 0.92 ng/dL 0.75-1.54 TSH 1.26 mIU/L 0.50-6.00 B12 237 pg/mL 230-1050 Folate 20.36 ng/mL High 3.00-16.00 Iron & Iron Binding Capacity 06/06/2012 [facility] Iron 70 g/dL 28-170 Unsaturated Iron Binding 305 g/dL Total Iron Binding Capacity 375 g/dL 250-450 % Iron Saturation 19 % 15-55 Vitamin D, 25 Hydroxy 06/06/2012 [facility] 25-Hydroxy Vitamin D2 33 ng/mL 25-Hydroxy Vitamin D3 5.6 ng/mL 25-Hydroxy Vitamin D Total 39 ng/mL 23 CBC Electronic (a) 06/06/2012 [facility] WBC 8.6 3.6-9.6 (607)- - RBC 4.32 3.90-5.70 Hemoglobin (a/[facility]/CTX) 13.9 g/dL 12.1 - 17.2 Hematocrit (a/[facility]/CTX) 40.9 % 36.1 - 50.3 Platelets 223 10^3/ul 150-400 Lymph% 23.9 20.5-51.1 Mixed% 3.9 Neutrophils % 72.2 Mean Corpuscular Vol 95 82.2-97.4 Mean Corpuscular Hemoglobin 32.1 27.6-33.3 Mean Corpuscular Hemo Concen 34.0 32.0-36.0 RDW 14.0 High 11.6-13.7 Mean Platelet Volume 8.2 6.5-11.0 CBC No Diff 01/22/2012 [facility] White Blood Count 5.3 10^3/uL [...] 10 um3 7.4-10.4 Comp Metabolic Panel 01/22/2012 [facility] Sodium 140 mmol/L 133-145 Potassium [...] 1.9 1-3 Total Bilirubin 0.6 mg/dL 0.1-1.0 24 Alkaline Phosphatase 27 U/L Low 30-110 Alt 18 U/L 14-54 Ast 18 U/L 12-42 Egfr Non- 73.2 >60 Egfr 94.1 >60 25 Ua - Non Micro (a) 01/03/2012 [facility] Medicine Appearance CLEAR (607)- - Color YELLOW Glucose NEG Bilirubin NEG Ketones NEG SP Grav 1.020 Blood NEG PH 7.0 Protein NEG Urobil 0.2 Nitrite NEG Leukocytes ([facility]) NEG Laboratory test 12/27/2011 [facility] Cytology RUN DATE: finding <SEE NOTE> Human Papilloma Virus 12/27/2011 [facility] Human Papillomavirus CERV Source Human Papillomavirus High Risk Negative Negative 27 Laboratory test finding 12/27/2011 [facility] Cytology RUN DATE: <SEE NOTE> Lipid Profile 12/27/2011 [facility] Cholesterol 184 mg/dL 120-200 HDL 43 mg/dL 30-85 Triglycerides 164 mg/dL 30-200 HDL Risk Factor 4.3 CALC 0.0-4.4 LDL (Calculated) 108 CALC 0-129 VLDL (Calculated) 33 mg/dL 0-50 Laboratory test finding 12/27/2011 fami Creatine Kinase 85 U/L 26-140 Comprehensive Metabolic Prof 12/27/2011 fami Albumin 5.0 g/dL 3.8-5.5 Alk. Phos. 36 U/L 30-110 Alt (SGPT) [...] test 12/27/2011 [facility] Vitamin D, 32.3 30.0-100.0 29 finding [address] [facility] [address] Oh ng/[place] [address] [phone] Comprehensive 06/16/2011 fami Albumin 5.1 g/dL 3.8-5.5 Metabolic Prof Alk. [...] Ratio 25.6 Calc 8.0-36.0 Lipid Profile 06/16/2011 fami Cholesterol 267 mg/dL High 120-200 HDL 48 mg/dL 30-85 Triglycerides 198 mg/dL 30-200 HDL Risk Factor 5.6 CALC High 0.0-4.0 LDL (Calculated) 180 CALC High 0-129 VLDL (Calculated) 40 mg/dL 0-50 Laboratory test 06/16/2011 [facility] Vitamin D, 23.7 ng/mL Low 30.0-100.0 30 finding 28 [facility] [address] [place], [place] [id number] [phone] Basic Metabolic 12/03/2010 fami BUN 14 mg/dL 6-26 Profile Calcium 9.9 mg/dL 8.6-10.2 Chloride 110 mEq/L 94-112 Creatinine 0.8 mg/dL 0.6-1.4 Carbon Dioxide 22 mEq/L 21-32 Glucose 107 mg/dL High 70-105 31 Sodium 144 mEq/L 134-149 Potassium 4.8 mEq/L 3.6-5.5 BUN/Creat Ratio 17.1 Calc 8.0-36.0 Laboratory test finding 12/03/2010 fami TSH 1.63 mIU/L 0.50-6.00 Lipid Profile 12/03/2010 fami Cholesterol 164 mg/dL 120-200 HDL 46 mg/dL 30-85 Triglycerides 218 mg/dL High 30-200 HDL Risk Factor 3.6 CALC 0.0-4.0 LDL (Calculated) 75 CALC 0-129 VLDL (Calculated) 44 mg/dL 0-50 Laboratory test 12/03/2010 [facility] Vitamin D, 15.7 Low 32.0-100.0 32 finding 28 [facility] 25 Oh ng/[place] [address] [phone] Laboratory test 05/06/2010 [facility] Vitamin D, 18.0 Low 32.0-100.0 33 finding 28 [facility] 25 Oh ng/[place] [address] [phone] Comprehensive 05/06/2010 fami Albumin 4.7 g/dL 3.8-5.5 Metabolic Prof Alk. Phos. 52 U/L 30-110 Alt (SGPT) 34 U/L 7-35 Ast (Sgot) 22 U/L 5-34 BUN 27 mg/dL High 6- 34 Calcium 9.4 mg/dL 8.6-10.2 Chloride 103 mEq/L 94-112 Creatinine 0.7 mg/dL 0.6-1.4 Carbon Dioxide 21 mEq/L 21-32 Glucose 103 mg/dL 70-105 Sodium 145 mEq/L 134-149 Total Bilirubin 0.3 mg/dL 0.2-1.3 Total Protein 7.5 g/dL 6.3-8.1 Potassium 4.0 mEq/L 3.6-5.5 Globulin 2.7 g/dL 2.0-4.8 A/G Ratio 1.7 Calc 0.6-2.2 BUN/Creat Ratio 40.4 Calc High 8.0-36.0 Laboratory test finding 05/06/2010 fami TSH 5.13 mIU/L 0.50-6.00 Lipid Profile 05/06/2010 fami Cholesterol 229 mg/dL High 120-200 HDL 40 mg/dL 30-85 Triglycerides 168 mg/dL 30-200 HDL Risk Factor 5.7 CALC High 0.0-4.0 LDL (Calculated) 155 CALC High 0-129 VLDL (Calculated) 34 mg/dL 0-50 Ua - Non Micro (Fma) 05/06/2010 [facility] Medicine Appearance CLEAR (607)- - Color YELLOW Glucose, Urine (Fma/[facility]/CTX) NEG Bilirubin NEG Ketones NEG SP Grav 1.020 Blood NEG PH 5.5 Protein NEG Urobil 0.2 Nitrite NEG Leukocytes ([facility]) NEG Laboratory test 05/06/2010 [facility] Hemoglobin A1c 5.7 % 4.1-5.7 finding (607)- - (a/[facility],CX) Comprehensive 01/10/2010 fami Albumin 4.4 g/dL 3.8-5.5 Metabolic Prof Alk. Phos. 59 U/L 30-110 Alt (SGPT) 24 U/L 7-35 Ast (Sgot) 17 U/L 5-34 BUN 21 mg/dL 6-26 Calcium 8.9 mg/dL 8.6-10.2 Chloride 102 mEq/L 94-112 Creatinine 0.7 mg/dL 0.6-1.4 Carbon Dioxide 23 mEq/L 21-32 Glucose 106 mg/dL High 70-105 35 Sodium 140 mEq/L 134-149 Total Bilirubin 0.3 mg/dL 0.2-1.3 Total Protein 7.1 g/dL 6.3-8.1 Potassium 4.1 mEq/L 3.6-5.5 Globulin 2.7 g/dL 2.0-4.8 A/G Ratio 1.7 Calc 0.6-2.2 BUN/Creat Ratio 29.8 Calc 8.0-36.0 Lipid Profile 01/10/2010 fami Cholesterol 254 mg/dL High 120-200 HDL 44 mg/dL 30-85 Triglycerides 136 mg/dL 30-200 HDL Risk Factor 5.7 CALC 4.2-7.0 LDL (Calculated) 183 CALC High 0-129 VLDL (Calculated) 27 mg/dL 0-50 CBC (a) 01/10/2010 [facility] WBC 5.8 3.6-9.6 (607)- - RBC 4.58 3.90-5.70 Hemoglobin (Fma/CMC/CTX) 14.4 g/dL 12.1 - 17.2 Hematocrit (Fma/CMC/CTX) 43.1 % 36.1 - 50.3 Platelets 225 10^3/ul 150-400 Lymph% 32.2 20.5-51.1 Mixed% 3.7 Neutrophils % 64.1 Mean Corpuscular Vol 94 82.2-97.4 Mean Corpuscular Hemoglobin 31.4 27.6-33.3 Mean Corpuscular Hemo Concen 33.3 33.0-36.0 RDW 12.6 11.6-13.7 Mean Platelet Volume 8.8 7.4-10.4 Laboratory test 01/10/2010 [facility] Homocysteine 6.7 umol/L 0.0-15.0 finding 28 [place] [id number] [phone] Vitamin D, 25 Oh 13.7 ng/mL Low 32.0-100.0 36 Ua - Micro (a) 08/24/2009 [facility] Medicine Appearance CLEAR (607)- - Color YELLOW Glucose NEG Bilirubin NEG Ketones NEG SP Grav 1.015 Blood NEG PH 6.0 Protein NEG Urobil 0.2 Nitrite NEG Leukocytes (Fma/[facility]) TRACE # Hyaline - /Lpf Granular - /Lpf WBC (Fma,[facility]) 2-3 RBC 1-2 Mucus - /Lpf Epith RARE /Lpf Bacteria RARE /Hpf Amorphous - /Lpf Crystals, Fluid (Fma/CMC/CTX) - Z#Comments - Laboratory test 12/08/2008 [facility] Vitamin D, 23.6 Low 32.0-100.0 37 finding 28 [facility] 25 Oh ng/mL [place], [place] [id number] [phone] Comprehensive 12/08/2008 fami Albumin 4.5 g/dL 3.8-5.5 38 Metabolic Prof Alk. Phos. 48 U/L 30-110 Alt [...] Calc 0.6-2.2 BUN/Creat Ratio 27.7 Calc 8.0-36.0 Lipid Profile 12/08/2008 fami Cholesterol 155 mg/dL 120-200 HDL 36 mg/dL 30-85 Triglycerides 146 mg/dL 30-200 HDL Risk Factor 4.3 CALC 4.2-7.0 LDL (Calculated) 90 CALC 0-129 VLDL (Calculated) 29 mg/dL 0-50 Laboratory test 08/07/2008 [facility] Thin Prep W/HPV SEE NOTE 39 finding 28 [place] [address] [phone] Ua - Non Micro 08/07/2008 Family Medicine Appearance clear (Fma) (607)- - Color yellow Glucose neg Bilirubin neg Ketones neg SP Grav 1.010 Blood neg PH 6.0 Protein neg Urobil 0.2 Nitrite neg Leukocytes (Fma/[facility]) neg Comprehensive Metabolic Prof 07/14/2008 fami Albumin 4.2 g/dL 3.8-5.5 Alk. Phos. 46 U/L 30-110 Alt (SGPT) [...] 21.2 Calc 8.0-36.0 Complete Blood Count 07/14/2008 fami WBC 5.5 x10^3/uL 3.6-9.6 Gran# 3.5 x10^3/uL [...] RDW 13.3 % 11.6-13.7 Lipid Profile 07/14/2008 fami Cholesterol 225 mg/dL High 120-200 HDL 33 mg/dL 30-85 Triglycerides 217 mg/dL High 30-200 HDL Risk Factor 6.8 CALC 4.2-7.0 LDL (Calculated) 149 CALC High 0-129 VLDL (Calculated) 43 mg/dL 0-50 Laboratory test 07/14/2008 fami TSH 2.42 mIU/L 0.50-6.00 finding Laboratory test 07/14/2008 [facility] Vitamin D, 25 10.0 ng/mL Low 32.0- 100.0 40 finding 28 [place] [id number] [phone] 1 05/07 2 05/07 3 SEE RESULT BELOW Name: STEPH WARREN : [address]: Jazzy Garrett MD Acct: [id number] Unit: [id number] AGE: 67 Location: [facility] Re04/24/18 SEX: F Status: REG REF SPEC: [id number] KESHAWN: 04/24/18-[address] [facility] [address]: Jazzy Garrett MD REQ: [id number] RECD: 04/24/18-1205 STATUS: JULIA FRANCO DR: Aziza Norotn MD _ SOURCE: URINE SPDESC: ORDERED: Urine Culture COMMENTS: 05/07 QUERIES: Urine Source: Clean Catch Procedure Result Reported Site Urine Culture Final 04/25/18- 1345 ML No growth of clinically significant organisms * ML - Main Lab . END OF REPORT DEPARTMENT OF PATHOLOGY, [address] [place] [address] Torsten Purdy M.D. Director [facility] # [id number] 4 Troponin-I testing on Plasma Separator Tubes (PST) has a known false positive rate of 0.20-0.40%. All positive troponins reflex immediate secondary confirmatory testing. 5 Specimen hemolyzed. Result may not be valid. [facility] Severe Sepsis and Septic Shock Management Bundle Measure requires all lactic acids initially measuring >2.0 mmol/L be repeated. 6 Because ethnic data is not always readily [...] 15-29 5 Kidney failure <15 (or dialysis) 7 Troponin-I testing on Plasma Separator Tubes (PST) has a known false positive rate of 0.20-0.40%. All positive troponins reflex immediate secondary confirmatory testing. 8 1 sst 9 2 sst 10 Negative <1:80 Borderline 1:80 Positive >1:80 11 Negative <5 Equivocal 5 - 9 Positive >9 12 HLA-B*27 Negative HLA allele interpretation for all loci based on IMGT/HLA database version 3.21 [facility] Lab CLIA ID Number [id number] This test was performed using PCR (Polymerase Chain Reaction)/SSOP (Sequence Specific Oligonucleotide Probes) technique. SBT (Sequence Based Typing) and/or SSP (Sequence Specific Primers) may be used as supplemental methods when necessary. Please contact [facility] Customer Service at if you have any questions. Director of [facility] Laboratory Dr Rudi Zelaya, PhD 13 Negative <20 Weak positive 20 - 39 Moderate positive 40 - 59 Strong positive >59 14 SEE RESULT BELOW Name: STEPH WARREN : [address]: Pito Taylor MD Acct: [id number] Unit: [id number] AGE: 64 Location: [facility] Re12/08/14 SEX: F Status: REG REF SPEC: [id number] KESHAWN: 12/08/14-[address] [facility] [address]: Pito Taylor MD REQ: [id number] RECD: 12/08/14 STATUS: HERVE FRANCO DR: Aziza Norton MD _ ORDERED: T CELL STAIN, LEVEL IV/3, QC33-WYV, CD5-ADD, BCL-2-ADD, BCL-6-ADD, PAX-5 CYCLIN D1-ADD FINAL [...] performed at Main Lab DEPARTMENT OF PATHOLOGY, [address] [place] [address] Torsten Purdy M.D. Director CLIA # [id number] RUN DATE: 12/11/14 [facility] LAB LIVE PAGE 2 Patient: STEPH WARREN Rene [id number] (Continued) CLINICAL HISTORY (Continued) CLINICAL HISTORY ? [...] performed at Main Lab DEPARTMENT OF PATHOLOGY, [address] [place] [address] Torsten Purdy M.D. Director [facility] # [id number] Unable to Perform Shiga Toxin Testing. Insufficient Growth of Enteric Bacteria. 16 SEE RESULT BELOW Name: STEPH WARREN Rene : [address]: Victor Manuel Justice MD Acct: [id number] Unit: [id number] AGE: 63 Location: [facility] Re08/28/14 SEX: F Status: REG REF SPEC: [id number] KESHAWN: 08/28/14-[address]: Victor Manuel Justice MD REQ: [id number] RECD: 08/28/14161 STATUS: RES _ SOURCE: STOOL SPDESC: ORDERED: Abdirahman george PCR, Stool Culture, Fecal Lactoferr, O P: Giar/Crypt COMMENTS: Unable to Perform Shiga Toxin Testing. Insufficient Growth of Enteric Bacteria. Procedure Result Verified Site Stool Culture Final 08/31/14- 1244 ML Result No growth of normal enteric bry No enteric pathogens isolated Testing for Salmonella, [...] are required. Stool Specimen Description Final 08/31/14- 124 ML Stool Color Brown Stool Form Nonformed Stool Consistency Liquid Shiga Toxin 1 2 Final 08/31/14- 1243 ML Test not performed C. difficile PCR Final 08/31/14- 1243 ML Organism 1 Toxigenic C.diff NEGATIVE CONTINUED ON NEXT PAGE * ML=Testing performed at Main Lab DEPARTMENT OF PATHOLOGY, [address] [place] [address] Torsten Purdy M.D. Director [facility] # [id number] Patient: STEPH WARREN [id number] (Continued) Specimen: [id number] Collected: 08/28/14-1400 Received: 08/28/14161 (Continued) Procedure Result Verified Site C. difficile [...] Screen PENDING * ML - MAIN LAB ([facility]) . END OF REPORT * ML=Testing performed at Main Lab DEPARTMENT OF PATHOLOGY, [address] [place] [address] Torsten Purdy M.D. Director [facility] # [id number] 17 SEE RESULT BELOW Name: STEPH WARREN : [address]: Victor Manuel Justice MD Acct: [id number] Unit: [id number] AGE: 63 Location: [facility] Re08/28/14 SEX: F Status: REG REF SPEC: [id number] KESHAWN: 08/28/14-[address] [facility] [address]: Victor Manuel Justice MD REQ: [id number] RECD: 08/28/14 STATUS: COMP _ SOURCE: STOOL SPDESC: ORDERED: C. diff PCR, Stool Culture, Fecal Lactoferr, O P: Giar/Crypt COMMENTS: Unable to Perform Shiga Toxin Testing. Insufficient Growth of Enteric Bacteria. FECAL FAT DURATION:RANDOM Procedure Result Verified Site Stool Culture Final 08/31/14- 1244 ML Result No growth of normal enteric bry No enteric pathogens isolated Testing for Salmonella, [...] sensitivities are required. Stool Specimen Description Final 08/31/141243 ML Stool Color Brown Stool Form Nonformed Stool Consistency Liquid Shiga Toxin 1 2 Final 08/31/141243 ML Test not performed C. difficile PCR Final 08/31/141243 ML CONTINUED ON NEXT PAGE * ML=Testing performed at Main Lab DEPARTMENT OF PATHOLOGY, [address] [place] [address] Torsten Purdy M.D. Director [facility] # [id number] Patient: STEPH WARREN [id number] (Continued) Specimen: [id number] Collected: 08/28/14-1399 Received: 08/28/14-1616 (Continued) Procedure Result Verified Site C. difficile PCR Final (continued) 08/31/141243 Organism 1 Toxigenic C.diff NEGATIVE Organism 2 027 Presumptive NEGATIVE Fecal Lactoferrin (Stool WBC) Final 08/31/14- 124 ML Fecal Lactoferrin Positive by Immunoassay TEST [...] is requested. Contact the Microbiology Department at [phone]. TEST LIMITATIONS: As with all diagnostic procedures, [...] performed at Main Lab DEPARTMENT OF PATHOLOGY, [address] [place] [address] Torsten Purdy M.D. Director [facility] # [id number] Patient: STEHP WARREN [id number] (Continued) Specimen: [id number] Collected: 08/28/14-1399 Received: 08/28/14-1616 (Continued) Procedure Result [...] and are not recommended. * ML - [facility] . END OF REPORT * ML=Testing performed at Main Lab DEPARTMENT OF PATHOLOGY, [facility] [address] [place], [place] [address] Torsten Purdy M.D. Director [facility] # [id number] 18 More reliable results can be obtained from a timed collection. 48 and 72 hour collections will give the most reliable results. Percent Fat >20% in a random collection is suggestive of a fat malabsorption disorder and should be confirmed with a timed collection. 19 Test Performed by: [place] [address] Break And Load Operator: Jose Grewal II, M.D., Ph.D. 20 RUN DATE: 05/07/14 [facility] LAB LIVE PAGE 1 RUN TIME: [address] [place] [address] Specimen Inquiry Name: STEPH WARREN : [address]: Nick Mcintyre MD Acct: [id number] Unit: [id number] AGE: 63 Location: [facility] Re05/06/14 SEX: F Status: REG REF SPEC: [id number] KESHAWN: 05/06/14- SUBM DR: Nick Mcintyre MD REQ: [id number] RECD: 05/06/14-1244 STATUS: HERVE FRANCO DR: Aziza [...] performed at Main Lab DEPARTMENT OF PATHOLOGY, [address] [place] [address] Torsten Purdy M.D. Director [facility] # [id number] 21 FASTING 22 FASTING 23 -- REFERENCE VALUE -- 25-HYDROXY D TOTAL (D2+D3) Optimum levels in the normal population are 25-80 Test Performed by: [address] [address] Break And Load Operator: Vimal Padilla III, M.D. 24 A metabolite of Naproxen, O-desmethylnaproxen, has been shown to interfere with the Jendrkellyik-Fede method for measuring total bilirubin. Samples from patients who have taken Naproxen have shown spurious elevation in total bilirubin levels. 25 Because ethnic data is not always readily [...] 15-29 5 Kidney failure <15 (or dialysis) 26 RUN DATE: 12/28/11 [facility] LAB LIVE PAGE 1 RUN TIME: [address] [place] [address] Specimen Inquiry Name: STEPH WARREN : [address]: Aziza Norton MD Acct: [id number] Unit: [id number] AGE: 61 Location: [facility] Re12/27/11 SEX: F Status: REG REF SPEC: [id number] KESHAWN: 12/27/11-[address]: Aziza Norton MD REQ: [id number] RECD: 12/28/1150 STATUS: SOUT _ ORDERED: IMAGE ANALYSIS, HPV / Thin Prep Negative for Intraepithelial lesion or Malignancy COMMENTS: Specimen sent to [facility] in [place], [place] on 12/28/11. Results will be reported separately in an Addendum. A. Ectocervical/Endocervical Specimen Adequacy: Satisfactory of evaluation Transformation zone component identified Patient Information: HPV: High risk HPV DNA testing regardless of pap results. Actual Specimen Date: 12/27/11 Cautery: N IUD: N ?: N Post Menopausal?: Y Hysterectomy?: N Lesion, grossly demonstrate: N Previous Abnormal Pap Smears?:N Signed (signature on file) Denisse Figueroa PR (ASCP) 12/28/11 1497 This Pap test was evaluated with the assistance of the [employer] Sky Energy SolutionsPrep Test Imaging System. Due to cytologic findings at the fitness worker microscope, comprehensive manual rescreening by a Grounds/Maintenance Specialist may be required. The Pap Smear is [...] performed at Main Lab DEPARTMENT OF PATHOLOGY, [address] [place] [address] Torsten Purdy M.D. Director [facility] Permit #[id number] 27 For types 16, 18, 31, 33, 35, 39, 45, 51, 52, 56, 58, 59 and 68. Test Performed by: [facility] - [address] [address] Break And Load Operator: Vimal Padilla III, M.D. R 28 RUN DATE: 01/02/12 [facility] LAB LIVE PAGE 1 RUN TIME: [address] [place] [address] Specimen Inquiry Name: DAVIJANETSTEPH J : [address]: Aziza Norton MD Acct: [id number] Unit: [id number] AGE: 61 Location: [facility] Re12/27/11 SEX: F Status: REG REF SPEC: [id number] KESHAWN: 12/27/11-[address] [facility] [address]: Aziza Norton MD REQ: [id number] RECD: 12/28/1150 STATUS: SOUT _ ORDERED: IMAGE ANALYSIS, HPV / Thin Prep HiRisk Human Papilloma Virus test results received with preparation and diagnosis completed by [facility], [place], [place]. Results: NEGATIVE High Risk (for types 16, 18, 31, 33, 35, 39, 45, 51, 52, 56, 58, 59, 68) DiGene Hybrid Capture Specimen Transport Media or VEEDIMS ThinPrep PapTest PreservCyt Solution are the collection systems approved for use with this method by the U.S. Food and Drug Administration. Performance characteristics for Auto[employer]te (SurPath) collection device have been determined by Laboratory Medicine and Pathology , [facility], [place], [place]. It has not been cleared or approved by the U.S. Food and Drug Administration. Test Performed by: [facility] Dpt of lab Med and Pathology [address] [facility] [address] Break And Load Operator: Vimal Padilla III, M.D. Original hard copy report from [facility] is available upon request by calling Pathology at [phone]. Addendum Signed (signature on file) AISSATOU Paulino (ASCP) 01/02/12927 Negative for Intraepithelial lesion or Malignancy COMMENTS: Specimen sent to [facility] in [place], [place] on 12/28/11. Results will be reported separately in an Addendum. A. Ectocervical/Endocervical Specimen Adequacy: Satisfactory of evaluation Transformation zone component identified Patient Information: HPV: High risk HPV DNA testing regardless of pap results. CONTINUED ON NEXT PAGE * ML=Testing performed at Main Lab DEPARTMENT OF PATHOLOGY, [address] [place] [address] Torsten Purdy M.D. Director [facility] Permit #[id number] RUN DATE: 01/02/12 [facility] LAB LIVE PAGE 2 RUN TIME: [address] [place] [address] Specimen Inquiry Patient: STEPH WARREN [id number] (Continued) CYTOLOGY PATIENT INFORMATION (Continued) Actual Specimen Date: 12/27/11 Cautery: N IUD: N ?: N Post Menopausal?: Y Hysterectomy?: N Lesion, grossly demonstrate: N Previous Abnormal Pap Smears?:N Signed (signature on file) AISSATOU Paulino (ASC) 12/28/11 2878 This Pap test was evaluated with the assistance of the [employer] Test Imaging System. Due to cytologic findings at the fitness worker microscope, comprehensive manual rescreening by a Grounds/Maintenance Specialist may be required. The Pap Smear is [...] performed at Main Lab DEPARTMENT OF PATHOLOGY, [address] [place] [address] Torsten Purdy M.D. Director [facility] Permit #[id number] 29 Vitamin D deficiency has been defined by the [place] [employer] and an Endocrine Society practice guideline as a level of serum 25-OH vitamin D less than 20 ng/mL (1,2). The Endocrine Society went on to further define vitamin D insufficiency as a level between 21 and 29 ng/mL (2). 1. IOM ([place] [employer]). 2010. Dietary reference intakes for calcium and D. [place] [place]: The National [employer]ely [employer]. 2. Shagufta THORPE, Sherley TELLO, Edilson BROWNLEE, et al. Evaluation, treatment, and prevention of vitamin D deficiency: an Endocrine Society clinical practice guideline. JCEM. 2010; 96(7):1911-30. 30 Vitamin D deficiency has been defined by the [place] [employer] and an Endocrine Society practice guideline as a level of serum 25-OH vitamin D less than 20 ng/mL (1,2). The Endocrine Society went on to further define vitamin D insufficiency as a level between 21 and 29 ng/mL (2). 1. IOM ([place] [employer]). 2010. Dietary reference intakes for calcium and D. [place]: The National [employer]ely [employer]. 2. Sherley Baig, Edilson BROWNLEE, et al. Evaluation, treatment, and prevention of vitamin D deficiency: an Endocrine Society clinical practice guideline. JCEM. 2010; 96(7):1911-30. 31 RESULT NELSON'D 32 Effective January 16, 2011 Vitamin D, 25-Hydroxy reference intervals will be changing to 30-100. . Recent studies consider the lower limit of 32.0 ng/mL to be a threshold for optimal health. Reinoso BW. J Nutr. 2004;135(2):317-22. 33 Recent studies consider the lower limit of 32.0 ng/mL to be a threshold for optimal health. Reinoso BW. J Nutr. 2004;135(2):317-22. 34 RESULT NELSON'D 35 RESULT NELSON'D 36 Recent studies consider the lower limit of 32.0 ng/mL to be a threshold for optimal health. Reinoso BW. J Nutr. 2004;135(2):317-22. 37 Recent studies consider the lower limit of 32.0 ng/mL to be a threshold for optimal health. Reinoso BW. J Nutr. 2004;135(2):317-22. 38 FASTING 39 e-volo. DEPARTMENT OF PATHOLOGY or Extension 7153 REPAIR OPERATOR CYTOLOGY REPORT PATIENT: STEPH WARREN : 1950 AGE: 57 Y SEX: F ACCT: [id number] PROCEDURE DATE: 08/07/2008 DATE RECEIVED: 08/10/2008 REQUESTING PHYSICIAN: MEILIA MARTÍNEZ MD LOCATION: [facility] [place] Case No. [id number] COMBINED REPAIR OPERATOR CYTOLOGY / HPV REPORT PATIENT DATA: [id number] LMP: SWING SAW OPERATOR SPECIMEN SUBMITTED: * * (HPVR) THINPREP W/HPV [...] are examined with an FDA-approved location-guidance system (14782). Performed @ [facility] [address] [place] [address] "" 40 Recent studies consider the lower limit of 32.0 ng/mL to be a threshold for optimal health. Kemar BW. J Nutr. 2005 Mar;135(2):317-22. Procedures Date Code Description Status 06/20/2018 [id number] Mammogram Completed 04/12/2018 12254 Electrocardiogram Complete Completed 07/06/2016 [id number] Mammogram Completed 05/26/2016 89441 Pulse Oximetry Completed 12/08/2014 [id number] Colonoscopy Completed 08/27/2014 80248 Pulse Oximetry Completed 05/22/2014 25918 Dxa Bone Density Study One Or More Sites Axial Completed Skeleton 05/12/2014 [id number] Bone Mineral Density Test Completed 05/11/2014 [id number] Mammogram Completed 05/14/2013 [id number] Mammogram Completed 06/06/2012 39710 Electrocardiogram Complete Completed 12/27/2011 61102 Vision Test- screening test of visual acuity, Completed quantitative, bila 12/02/2010 74880 Pulse Oximetry Completed 05/12/2010 [id number] Mammogram Completed 03/04/2010 29852 Pulse Oximetry Completed 10/15/2008 80277 Pulse Oximetry Completed 07/10/2008 [id number] Mammogram Completed Encounters Type Date Location Provider Dx Diagnosis Office Visit 04/18/2018 [facility] Aziza Muniz R00.1 Bradycardia, 3:30p Rhina Norton unspecified R94.31 Abnormal electrocardiogram [ECG] [EKG] Office Visit 04/12/2018 [facility] Aziza Muniz Z01.818 Encounter for other 10:00a Office Rhina Norton preprocedural examination M17.11 Unilateral primary osteoarthritis, right knee M25.561 Pain in right knee M25.461 Effusion, right knee J45.30 Mild persistent asthma, uncomplicated I10 Essential (primary) hypertension E78.2 Mixed hyperlipidemia K21.9 Gastro-esophageal reflux disease without esophagitis A09 Infectious gastroenteritis and colitis, unspecified B35.1 Tinea unguium R00.1 Bradycardia, unspecified Office Visit 02/01/2018 11:20a [facility] Aziza Muniz M25.461 Effusion , right Rhina Norton knee F17.210 Nicotine dependence, cigarettes, uncomplicated S50.819A Abrasion of unspecified forearm, initial encounter Office Visit 12/05/2017 11:20a Main Office Aziza Muniz F17.210 Nicotine dependence, Rhina Norton cigarettes, uncomplicated J45.30 Mild persistent asthma, uncomplicated Z23 Encounter for immunization Office Visit 11/08/2017 [facility] Aziza Muniz F17.210 Nicotine 11:20a Office Rhina Norton dependence, cigarettes, uncomplicated J45.30 Mild persistent asthma, uncomplicated Office Visit 09/21/2017 [facility] Aziza Muniz F17.210 Nicotine 9:40a Office [...] 11:20a Main Office Aziza Muniz J01.90 Acute sinusitisCierra M.D. unspecified J45.30 Mild persistent asthma, uncomplicated I10 [...] Office Visit 05/26/2016 8:45a [facility] Nehal López01.Marc Acute sinusitis, Kelsie, ANMOL unspecified K21.9 Gastro-esophageal reflux disease without esophagitis [...] Encounter for immunization Office Visit 04/15/2015 10:10a [facility] Office Clifford Johnson J01.80 Other acute Rhina Alford sinusitis J40 Bronchitis, [...] Other Office Visit 10/12/2014 10:45a Main Office Nehal Kelsie, PLANT ATTENDANT 787.91 Diarrhea 724.5 Backache Unspec Office Visit 08/27/2014 7:30p Main Office Victor Manuel Justice, 461.9 Sinusitis Acute M.D. Unspec 787.91 [...] Main Office Nehal Iglesias, 719.46 Pain Joint PLANT ATTENDANT Lower Leg 891.2 Open Wound Knee Leg [...] 268.9 Vitamin D Deficiency Unspec V72.31 Routine Melon Packer Examination 401.9 Hypertension Unspec 493.10 Asthma Intrinsic [...] Visit 12/02/2010 4:30p Main Office Arleen Zafar, PLANT ATTENDANT 461.9 Sinusitis Acute Unspec 493.10 Asthma Intrinsic [...] Main Office Emilia Martínez, 530.81 Esophageal Reflux M.DNallely 401.9 Hypertension Unspec 372.00 Conjunctivitis Acute Unspec 788.30 Incontinence Urinary Unspec 716.34 Arthritis Climacteric Hand Office Visit 07/14/2009 Main Office sEperanza 530.81 Esophageal Reflux 6:00p [place], Afnp-C Office Visit 05/19/2009 Main Office Esperanza 372.00 Conjunctivitis Acute 1:15p Arnoldo, Unspec Afnp-C Office Visit 05/17/2009 [facility] Emilia Gordon 372.00 Conjunctivitis Acute 1:40p Office Rhina Martínez Unspec 401.9 Hypertension Unspec 461.9 Sinusitis Acute Unspec 382.9 Otitis Media Unspec Office Visit 05/13/2009 Main Office Lisbeth Hinds, 372.00 Conjunctivitis Acute 10:00a Afnp-C Unspec Office Visit 05/10/2009 [facility] Emilia Gordon 382.9 Otitis Media Unspec 4:20p Office [...] Counseling Other Spec Plan of Treatment Future Appointment(s):12/13/2018 9:00 am - Aziza Norton M.D. at [facility]06/11/2018 - Aziza Norton M.D.Z00.00 Encounter for general adult medical examination without abnoComments:You are in good general health. I recommend regular physical exams with attention to good nutritionand exercise, eye exams every other year, and dental exams twice yearly. Goals:2 fresh fruits bmexv3wnldrima of fresh green and multicolored vegetablesEat from the whole color spectrum. 40-60 [place] dailyMOVE YOUR BODY. Bodies were made to be moved. exercise 30 minutes at least 4-5 times weekly Pap smear due in 6 months.Z01.818 Encounter for other preprocedural examinationComments:if all of your labs at the hospital are normal, you are cleared for surgery. If you get constipateddue to the pain meds you will receive after surgery, you can treat the constipation by not taking all of your budesonide., or you might have to take miralax, milk of magnesia and or a stool softener. has cleared her for surgery from a cardiac standpoint.M17.11 Unilateral primary osteoarthritis, right kneeM25.561 Pain in right kneeM25.461 Effusion, right kneeR00.1 Bradycardia, eyqulmozzaeD45 Essential (primary) hypertensionComments: Stable. Continue present meds. slightly elevated today dt anxiety about being cleared for surgery.E78.2 Mixed karoollavvxsgnU45.9 Gastro-esophageal reflux disease without abwcqhqwqofZ10.9 Vitamin D deficiency, xrdpxvxzaviM28.31 Encounter for screening mammogram for malignant neoplasm ofAllComments: Medication Management Patient Understands medications she's taking? Yes No Are there Barriers to Adherence? Yes No Has the patient been asked about herbal supplements and therapies, and OTC meds? Yes No
--- OUTSIDE RECORDS SUMMARY | 2018-07-02 05:49 | XMS REPORT | Continuity of Care Document ---
:1950 External Reference #:[id number] Author Name Rhiannon Haddad Care Team Providers Name Role Phone Aziza Norton MD Primary Care Physician Unavailable Payers Date Identification Numbers Payment Provider Subscriber Policy Number: [id number] [employer] Medicare Steph Warren PayID: [id number] [address] [place] [address] Expires: 2018 Policy Number: [id number] Medicare Steph Warren PayID: [id number] [address] [place] [address] Effective: 2012 Policy Number: [id number] [employer] Steph Warren Expires: 2018 Group Number: [id number] [address] PayID: [id number] [place] [address] Onset: 2008 Policy Number: Ady Bach Steph Warren [id number] PayID: [id number] [address] [place] [address] Advance Directives Description No Information Available Problems Active Problems Provider Date Localized, primary osteoarthritis of Jazzy Garrett M.D. Onset: 05/26/2015 the pelvic region and thigh Localized, primary osteoarthritis Jazzy Garrett M.D. Onset: 05/26/2015 Dyspnea Archana Lopez M.D. Onset: 07/31/2012 Dizziness and giddiness Archana Lopez M.D. Onset: 07/31/2012 Hyperlipidemia Archana Lopez M.D. Onset: 07/31/2012 Benign essential hypertension Archana Lopez M.D. Onset: 07/31/2012 Electrocardiogram abnormal Archana Lopez M.D. Onset: 07/31/2012 Syncope and collapse Archana Lopez M.D. Onset: 07/31/2012 Family History Date Family Member(s) Observation Comments General Heart Disease General Diabetes Type I General Breast Cancer Father due to Unknown Causes () Mother due to Cardiomyopathy () Siblings 2 Social History Type Date Description Comments Sex Unknown Marital Status Lives With Alone patient lives in own home, is primary caregiver of 2 grandchildren age 10 and 13 Occupation Retired Tobacco Use Start: Unknown quit 02/25/05 ETOH Use socially ETOH Use Denies alcohol use ETOH Use Has consumed alcohol in the past Tobacco Use Start: Unknown Patient is a former quit July 2017 End: Unknown smoker Smoking Status Reviewed: 06/21/18 Patient is a former quit July 2017 smoker Exercise Does not exercise Type/Frequency Exercise rides stationary bike Type/Frequency daily Allergies, Adverse Reactions, Alerts Active Allergies Reaction Severity Comments Date NKDA 05/23/2018 Latex Urticaria 12/20/2012 Wool Hives 05/23/2018 Inactive Allergies NKDA 05/23/2018 Medications Active Medications SIG Qnty Indications Ordering Provider Date Oxygen 2l by nc as 1units Baljit Elizabeth 05/21/2018 Misc needed, wear at Rhina Stevens night Atorvastatin Calcium 1 po hs Other Ordering 07/31/2012 80mg Provider Tablets Advair Diskus Unknown Multi Complete Unknown Calcium 1000 + D Unknown Vitamin E-400 Unknown Vitamin D Unknown Vitamin B-12 Unknown Natural Aspir-Low 1 by mouth Unknown 81mg Tablets DR every day Escitalopram Oxalate 5mg take one Unknown tab by mouth once a day Tylenol Arthritis Pain 2 by mouth Unknown every bid 650mg Tablets ER Lisinopril 1 by mouth Unknown 5mg Tablets every day Zyrtec Allergy 1 by mouth Unknown 10mg every day Capsules Omeprazole 1 by mouth Unknown 20mg Capsules every day DR Mazariegosonide 3 caps daily Unknown 3mg Caps ER 24HR History Medications Tramadol 1-2 tablets 30tabs Diane 06/04/2014 - Hydrochloride/Acetaminophen every 4- 6 Rhina Brizuela 01/26/2015 37.5-325mg Tablets hours as needed pain Cefdinir twice daily x Unknown 05/05/2014 - 300mg Capsules 10 days 09/26/2014 Meclizine HCL qid prn 12tabs Other Ordering 07/31/2012 - 12.5mg Tablets Provider 02/26/2014 Vitamin D 1 tab po Qutaybeh S. 07/31/2012 - 32814Dbbo Capsules every week [facility], 09/26/2014 M.D. Multivital once daily 30tabs Other Ordering 07/31/2012 - Tablets Provider 04/23/2018 Effexor XR 3 PO qd Qutaybeh S. 06/04/2007 - 75mg Caps ER 24HR [facility], 04/15/2009 M.D. Geodon 20mg 1 po tid Qutaybeh S. 06/04/2007 - [facility], [facility] M.D[facility] Tylenol 8 Hour prn Qutaybeh S. 06/04/2007 - 650mg Tablets ER [facility], 09/26/2014 M.D. Diovan 80mg 1 PO qd 90tabs Qutaybeh S. 06/04/2007 - Tablets [facility], 04/15/2009 M.D. Hydrochlorothiazide 1 PO qd 90tabs Qutaybeh S. 09/25/2005 - 25mg Tablets [facility], 04/15/2009 M.D. Motrin 200mg prn Qutaybeh S. 03/23/2005 - Caplets [facility], 06/04/2007 M.D. Geodon 60mg PO bid 30caps Qutaybeh S. 03/23/2005 - Capsules [facility], 06/04/2007 M.D. Effexor XR 1 po qam 30caps Qutaybeh S. 03/23/2005 - 150mg Capsules [facility], 06/04/2007 2 M.D. po qeve Lipitor 10mg 3 po qd Qutayb S. 03/23/2005 - Tablets [facility], 04/15/2009 M.D. Nicotine 1 po qd Qutaybeh S. 03/23/2005 - 14mg/Day Patches [facility], 09/25/2005 M.D. Nicotine Qutayb S. 03/21/2005 - 21mg/Day Patches [facility], 03/23/2005 M.D. Wellbutrin SR 1 po 60tabs Qutaybeh S. 03/21/2005 - 100mg Tablets [facility], 09/25/2005 M.D. Protonix 1 po qd taybeh S. 03/21/2005 - Tablets [facility], 03/23/2005 M.D. Lipitor 1 po qd 30tabs Qutaybeh S. 03/21/2005 - Tablets [facility], 03/23/2005 M.D. Vitamin D3 1 by mouth Unknown - 1000Unit Capsules every day 04/23/2018 HM Vitamin B12 1 by mouth Unknown - 500mcg Tablets every day 04/23/2018 Vitamin E Unknown - 04/23/2018 Aleve 220mg 2 by mouth Unknown - Capsules qam 04/23/2018 Equate Patch For Pain apply to knee Unknown - as directed 02/12/[address] [place] Wort as directed Unknown - 300mg Capsules 02/12/2018 May 3 1 by mouth Unknown - 1000mg Capsules qd. 04/23/2018 Calcium 600 + D 1 by mouth Unknown - [id number] Tablets every day 04/23/2018 Benadryl Allergy 1-2 prn 60caps Unknown - 25mg Capsules 04/23/2018 Flovent Diskus bid 2 puffs Unknown - 50mcg/Blist Aerosol Dose Is Unknown 44mcgs Lisinopril/Hydrochlorothiazide 1/2 tablet po 90tabs Unknown - 10-12.5mg qd 09/26/2014 Tablets Albuterol 2 puffs qid 1units Unknown - 90mcg/Act Aerosol prn 11/11/2010 Asa 81mg 1 po qd 30units Unknown - 04/23/2018 Vit D one po qd Unknown - 07/31/2012 Abilify 5mg one half tab 30tabs Unknown - Tablets po qd 11/11/2010 Citalopram Hydrobromide 1 and 1/2 tab 30tabs Unknown - 40mg Tablets po qd 07/31/2012 Diovan HCT 1 po qd Unknown - 320-25mg Tablets 11/11/2010 Lipitor 40mg 1 po hs Unknown - Tablets 07/31/2012 Diovan HCT 1 po qd 28tabs Unknown - Unsure-Will Call Tablets 04/15/2009 Medications Administered in Office Medication SIG Qnty Indications Ordering Provider Date Depomedrol 40MG Jazzy Garrett M.D. 02/13/2018 Injection Depomedrol 40MG Jazzy Garrett M.D. 05/26/2015 Injection Depomedrol 80MG Doreen Gilliam RPA-Lashon 05/25/2014 Injection Depomedrol 80MG Diane Brizuela M.D. 11/20/2013 Injection Immunizations Description No Information Available Vital Signs Date Vital Result Comment 06/21/2018 11:55am Height 60 inches 5'0" Weight 191.00 lb Heart Rate 62 /min BP Systolic 112 mmHg BP Diastolic 80 mmHg Pain Level 5 BMI (Body Mass Index) 37.3 kg/m2 05/23/2018 10:32am Height 60 inches 5'0" Weight 191.00 lb w/shoes Heart Rate 46 /min BP Systolic Sitting 120 mmHg Rue reg cuff BP Diastolic Sitting 60 mmHg Rue reg cuff BP Systolic Standing 116 mmHg Rue reg cuff BP Diastolic Standing 60 mmHg Rue reg cuff Respiratory Rate 15 /min BMI (Body Mass Index) 37.3 kg/m2 Ejection Fraction 60-65% 05/17/18 echo 04/25/2018 1:49pm Height 60 inches 5'0" Weight 190.00 lb with shoes Heart Rate 48 /min BP Systolic Sitting 106 mmHg BP Diastolic Sitting 72 mmHg BP Systolic Standing 94 mmHg BP Diastolic Standing 66 mmHg BP Systolic Lying Down 122 mmHg la repeat sitting. BP Diastolic Lying Down 70 mmHg la repeat sitting. BMI (Body Mass Index) 37.1 kg/m2 Ejection Fraction 60% nuclear lexiscan 04/16/18 04/24/2018 9:03am Height 60 inches 5'0" Weight 190.00 lb Heart Rate 45 /min BP Systolic 138 mmHg BP Diastolic 70 mmHg BMI (Body Mass Index) 37.1 kg/m2 03/15/2018 9:24am Height 60 inches 5'0" Heart Rate 56 /min BP Systolic 136 mmHg BP Diastolic 84 mmHg Respiratory Rate 12 /min Pain Level 0 02/13/2018 8:06am Height 60 inches 5'0" Weight 185.00 lb BP Systolic 140 mmHg BP Diastolic 84 mmHg Body Temperature 97.8 F BMI (Body Mass Index) 36.1 kg/m2 06/28/2015 8:56am Height 61 inches 5'1" Weight 174.00 lb Pain Level 0 BMI (Body Mass Index) 32.9 kg/m2 05/26/2015 8:37am Height 61 inches 5'1" Weight 174.00 lb Heart Rate 46 /min BP Systolic 126 mmHg BP Diastolic 65 mmHg BMI (Body Mass Index) 32.9 kg/m2 02/16/2015 9:49am Height 61 inches 5'1" Weight 172.00 lb Heart Rate 48 /min BP Systolic 148 mmHg BP Diastolic 80 mmHg Respiratory Rate 16 /min BMI (Body Mass Index) 32.5 kg/m2 10/26/2014 9:11am Height 61 inches 5'1" Weight 186.00 lb Heart Rate 48 /min BP Systolic Sitting 128 mmHg BP Diastolic Sitting 64 mmHg Respiratory Rate 16 /min BMI (Body Mass Index) 35.1 kg/m2 07/23/2014 10:07am Height 61 inches 5'1" Weight 194.00 lb Pain Level 0 BMI (Body Mass Index) 36.7 kg/m2 06/18/2014 10:05am Height 61 inches 5'1" Weight 194.00 lb Body Temperature 98.3 F Pain Level 1 BMI (Body Mass Index) 36.7 kg/m2 06/04/2014 9:03am Height 60 inches 5'0" Weight 180.00 lb Pain Level 9 BMI (Body Mass Index) 35.1 kg/m2 05/25/2014 10:14am Height 61 inches 5'1" Weight 194.00 lb Heart Rate 48 /min BP Systolic Sitting 138 mmHg BP Diastolic Sitting 74 mmHg Pain Level 9 BMI (Body Mass Index) 36.7 kg/m2 11/20/2013 8:51am Height 60 inches 5'0" Weight 180.00 lb Heart Rate 60 /min BMI (Body Mass Index) 35.1 kg/m2 12/20/2012 9:51am Height 60 inches 5'0" Weight 179.00 lb Heart Rate 49 /min BP Systolic 129 mmHg BP Diastolic 73 mmHg BMI (Body Mass Index) 35.0 kg/m2 09/11/2012 1:28pm Height 62 inches 5'2" Weight 170.00 lb Heart Rate 56 /min BP Systolic Sitting 118 mmHg BP Diastolic Sitting 72 mmHg Respiratory Rate 20 /min BMI (Body Mass Index) 31.1 kg/m2 07/31/2012 8:45am Height 62 inches 5'2" Weight 166.00 lb Heart Rate 45 /min BP Systolic 110 mmHg BP Diastolic 66 mmHg BMI (Body Mass Index) 30.4 kg/m2 11/11/2010 11:02am Height 62 inches 5'2" Weight 189.00 lb Heart Rate 66 /min BP Systolic Sitting 112 mmHg BP Diastolic Sitting 72 mmHg BMI (Body Mass Index) 34.6 kg/m2 04/15/2009 9:10am Height 62 inches 5'2" Weight 194.00 lb Heart Rate 61 /min BP Systolic Sitting 96 mmHg left arm, right arm 104/70 BP Diastolic Sitting 68 mmHg left arm, right arm 104/70 BP Systolic Standing 94 mmHg BP Diastolic Standing 70 mmHg BMI (Body Mass Index) 35.5 kg/m2 06/04/2007 8:50am Height 62 inches 5'2" Weight 185.50 lb Heart Rate 65 /min BP Systolic Sitting 144 mmHg BP Diastolic Sitting 84 mmHg BMI (Body Mass Index) 33.9 kg/m2 03/26/2006 11:14am Height 62 inches 5'2" Weight 196.00 lb Heart Rate 61 /min BP Systolic Sitting 124 mmHg BP Diastolic Sitting 84 mmHg BMI (Body Mass Index) 35.8 kg/m2 09/25/2005 11:08am Height 62 inches 5'2" Weight 201.00 lb Heart Rate 68 /min BP Systolic Sitting 130 mmHg BP Diastolic Sitting 62 mmHg Respiratory Rate 18 /min BMI (Body Mass Index) 36.8 kg/m2 03/23/2005 10:10am Height 62 inches 5'2" Weight 194.00 lb Heart Rate 61 /min BP Systolic Sitting 104 mmHg left arm, right arm 120/80 BP Diastolic Sitting 80 mmHg left arm, right arm 120/80 BP Systolic Standing 98 mmHg BP Diastolic Standing 78 mmHg BMI (Body Mass Index) 35.5 kg/m2 Results Test Date Facility Test Result H/L Range Note Urinalysis Profile 04/24/2018 [facility] Urine Color Straw [address] [place] [address] [phone] Urine Appearance Clear Urine Specific Carbon 1.012 N 1.010-1.030 Urine pH 5.0 N 5-9 Urine Urobilinogen Negative Negative Urine Ketones Negative Negative Urine Protein Negative Negative Urine Leukocytes Negative Negative Urine Blood Negative Negative Urine Nitrite Negative Negative Urine Bilirubin Negative Negative Urine Glucose Negative Negative Inr/Protime 04/24/2018 [facility] Inr 0.89 N 0.77-1.[address] [place] [address] [phone] Laboratory test 04/24/2018 [facility] Partial 29.0 seconds N 26.0-36.[address] [place] [address] PTT [phone] Type & Screen 04/24/2018 [facility] Patient A Positive [address] [place] [address] [phone] Antibody Screen NEGATIVE Urine Culture And 04/24/2018 [facility] Urine Culture SEE RESULT [address] [place] [address] [phone] Vitamin D, 25 06/06/2012 [facility] 25-Hydroxy 33 ng/mL Hydroxy [address] Vitamin [place]2 [place] [address] [phone] 25-Hydroxy Vitamin D3 5.6 ng/mL 25-Hydroxy Vitamin D Total 39 ng/mL 4 Iron & Iron Binding 06/06/2012 [facility] Iron 70 g/dL 28- [address] [place] [address] [phone] Unsaturated Iron Binding 305 g/dL Total Iron Binding Capacity 375 g/dL 250-450 % Iron Saturation 19 % 15-55 1 AA 05/07 2 AA 05/07 3 SEE RESULT BELOW Name: STEPH WARREN : [address]: Jazzy Garrett MD Acct: [id number] Unit: [id number] AGE: 67 Location: [facility] Re04/24/18 SEX: F Status: REG REF SPEC: [id number] KESHAWN: 04/24/18-[address] [facility] [address]: Jazzy Garrett MD REQ: [id number] RECD: 04/24/18120 STATUS: JULIA FRANCO DR: Aziza Norton MD _ SOURCE: URINE SPDESC: ORDERED: Urine Culture COMMENTS: AMADO 05/07 QUERIES: Urine Source: Clean Catch Procedure Result Reported Site Urine Culture Final 04/25/18- 1345 ML No growth of clinically significant organisms * ML - Main Lab . END OF REPORT DEPARTMENT OF PATHOLOGY, [address] [place] [address] Torsten Purdy M.D. Director [facility] # [id number] 4 -- REFERENCE VALUE -- 25-HYDROXY D TOTAL (D2+D3) Optimum levels in the normal population are 25-80 Test Performed by: [place] [address] Polisher And Buffer: Vimal Padilla III, M.D. Procedures Date Code Description Status 05/23/2018 12837 EKG Tracing & Interpretation Completed 05/22/2018 75964 Holter Monitor Review (24 hr)dr review & interp only Completed 05/21/2018 67166 ECG Monitor/Recording W/Visual Superimposition Scanning Completed 05/21/2018 60190 ECG Monitor/Recording W/Visual Superimposition Scanning Completed 05/17/2018 15958 ECHO Transthoracic, Real-Time 2D With Doppler And Color Completed Flow 05/17/2018 50393 ECHO Transthoracic, Real-Time 2D With Doppler And Color Completed Flow 04/25/2018 72801 EKG Tracing & Interpretation Completed 04/16/2018 68058 Treadmill Interp/Report Only Completed 04/16/2018 38539 Stress Test Supervsn W/Out I/R Completed 02/13/201859967 Inject/Drain Joint/Bursa Major W/O US Completed 05/26/2015 Inject/Drain Joint/Bursa Major W/O US Completed 06/09/2014 50534 Trigger Finger Release Incision / Tendon Sheath Incision Completed 05/25/2014 Inject/Drain Joint/Bursa Major W/O US Completed 11/20/2013 63490 Rad Exam; Fingers Completed 11/20/2013 82532 Inject Tendon Sheath Or Ligament Aponeurosis Eg Plantar Completed Fascia 09/09/2012 63608 Holter Monitor Review (24 hr)dr review & interp only Completed 09/05/2012 16589 Treadmill Interp/Report Only Completed 09/05/2012 18911 Stress Test Supervsn W/Out I/R Completed 08/21/2012 46868 ECHO Transthoracic, Real-Time 2D With Doppler And Color Completed Flow 07/31/2012 14893 EKG Tracing & Interpretation Completed 01/22/2012 58333 EKG, Interpretation Only Completed 11/11/2010 13706 EKG Tracing & Interpretation Completed 04/15/2009 50022 EKG Tracing & Interpretation Completed 03/01/2009 46217 EKG, Interpretation Only Completed 07/06/2008 38256 ECHO Transthoracic, Real-Time 2D With Doppler And Color Completed Flow 06/11/2007 88937 Treadmill Interp/Report Only Completed 06/11/2007 23806 Stress Test Supervsn W/Out I/R Completed 06/11/2007 35374 Stress Test Supervsn W/Out I/R Completed 06/04/2007 77351 EKG Tracing & Interpretation Completed 06/04/2007 05838 EKG Tracing & Interpretation Completed 03/26/2006 90115 EKG Tracing & Interpretation Completed 03/26/2006 78949 EKG Tracing & Interpretation Completed 03/23/2006 13739 Echocardiogram Completed 03/23/2006 54896 Echocardiogram Completed 03/23/2006 91283 Pulse Doppler & Continuous Wave Completed 03/23/2006 84314 Color Doppler Completed 03/23/2006 44036 Color Doppler Completed 09/25/2005 61427 EKG Tracing & Interpretation Completed 09/25/2005 86898 EKG Tracing & Interpretation Completed 04/24/2005 43648 Color Doppler Completed 04/24/2005 19651 Pulse Doppler & Continuous Wave Completed 04/24/2005 60514 Echocardiogram Completed 03/23/2005 26667 EKG Tracing & Interpretation Completed 03/16/2005 28569 Holter Monitor Interpretation Completed 03/10/2005 40508 Treadmill Interp/Report Only Completed 03/10/2005 60436 Stress Test Supervsn W/Out I/R Completed Encounters Type Date Location Provider Dx Diagnosis Office Visit 05/23/2018 [facility] Amee Murray, R00.1 Bradycardia, 10:30a Of Data Analyst N.P. unspecified R06.00 Dyspnea, unspecified E78.5 Hyperlipidemia, unspecified I10 Essential (primary) hypertension Office Visit 04/25/2018 2:00p [facility] Baljit RodriguezNallely M25.561 Pain in Mickie Stevens. right knee R00.1 Bradycardia, unspecified E78.5 Hyperlipidemia, unspecified R06.00 Dyspnea, unspecified G47.9 Sleep disorder, unspecified Office Visit 04/13/2018 [facility] Scarlet R07.9 Chest pain, 11:45a Assoc,pc MD Sania unspecified Hospitalists R00.1 Bradycardia, unspecified I10 Essential (primary) hypertension E78.5 Hyperlipidemia, unspecified Office Visit 04/12/2018 11:44a [facility] Matilda R07.9 Chest pain, Assoc,pc Jagjit Diaz unspecified Hospitalists I10 Essential (primary) hypertension K21.9 Gastro-esophageal reflux disease without esophagitis E78.5 Hyperlipidemia, unspecified K52.839 Microscopic colitis, unspecified Office Visit 03/15/2018 [facility] M17.11 Unilateral primary 8:45a Services Of Rhina Garrett osteoarthritis, right C.M.A. knee M25.561 Pain in right knee M25.461 Effusion, right knee Office Visit 02/13/2018 [facility] M17.11 Unilateral primary 8:00a Services Of Rhina Garrett osteoarthritis, right C.M.A. knee M25.561 Pain in right knee M25.461 Effusion, right knee Office Visit 06/28/2015 [facility] J[facility]zy M16.11 Unilateral primary 9:15a Services Of Rhina Garrett osteoarthritis, right C.M.A. hip M17.11 Unilateral primary osteoarthritis, right knee Office Visit 05/26/2015 [facility] J[facility]zy M17.11 Unilateral primary 8:30a Services Of Rhina Garrett osteoarthritis, right C.M.A. 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 Acquired Office Visit 05/25/2014 [facility] Doreen 844.2 Sprains & 8:30a Of C.MAshlyn. [place], RPA-C Strains Knee Cruciate Ligament 715.96 Osteoarthrosis Unspec Genlzd Or Localized Lower Leg Office Visit 11/20/2013 Orthopedic Diane 727.03 Trigger Finger 8:45a Services Of Rhina Brizuela Acquired C.M.A. Office Visit 12/20/2012 Orth[facility] Sanju [place], 924.11 Contusion Knee 9:15a Services Of Rhina C.M.ANallely Office Visit 09/11/2012 [place] Qutaybeh S. 401.1 Hypertension 1:40p Cardiology hRina Lopez Benign 780.4 Dizziness & Giddiness 786.05 Shortness Of Breath 272.4 Hyperlipidemia Other Unspec Office 09/05/2012 [place] Qutaybeh S. 794.31 Electrocardiogram Visit 8:30a Cardiology Rhina Lopez (ECG) (EKG) Abnormal 780.2 Syncope & Collapse 401.1 Hypertension Benign Office Visit 07/31/2012 9:00a [facility] Deidreeh S. 780.2 Syncope & Rhina Lopez Collapse 794.31 Electrocardiogram (ECG) (EKG) Abnormal 401.1 Hypertension Benign 272.4 Hyperlipidemia Other Unspec 780.4 Dizziness & Giddiness 786.05 Shortness Of Breath Office Visit 05/09/2012 9:15a Orthopedic Diane 736.1 Mallet Finger Services Of Rhina Brizuela C.M.A. Office Visit 11/11/2010 10:40a [facility] Qubernabeybeh S. 401.1 Hypertension Cardiology Rhina Lopez Benign 272.4 Hyperlipidemia Other Unspec 794.31 Electrocardiogram (ECG) (EKG) Abnormal Office Visit 04/15/2009 [place] Archana S. 401.1 Hypertension 9:30a Cardiology Rhina Lopez Benign 786.05 Shortness Of Breath 272.4 Hyperlipidemia Other Unspec Office 06/11/2007 [facility] Qutaybeh S. 794.31 Electrocardiogram Visit 10:00a Jean Lopez M.D. (ECG) (EKG) Abnormal 401.0 Hypertension Malignant 272.4 Hyperlipidemia Other Unspec Office Visit 06/04/2007 [place] Qutaybeh S. 272.4 Hyperlipidemia 9:10a Cardiology Rihna Lopez Other Unspec 401.0 Hypertension Malignant 424.2 Tricuspid Valve Disorder Spec as Nonrheumatic 786.59 Pain Chest Other 786.05 Shortness Of Breath Office Visit 03/26/2006 [place] Archana S. 401.1 Hypertension 11:20a Cardiology Rhina Lopez Benign 272.4 Hyperlipidemia Other Unspec Office Visit 09/25/2005 [place] Archana S. 401.1 Hypertension 11:00a Cardiology Rhina Lopez Benign 786.05 Shortness Of Breath 272.4 Hyperlipidemia Other Unspec Office Visit 03/23/2005 10:00a [facility] Archana S. 786.50 Pain Chest Rhina Lopez Unspec Plan of Treatment Future Appointment(s):07/12/2018 9:45 am - Jazzy Garrett M.D. at [facility]07/02/2018 8:00 am - Ryan Adams PA-C at [facility].07/02/2018 8:00 am - AMANDA Eason at [facility]09/03/2018 10:00 am - Archana Lopez M.D. at [facility]07/02/2018 8:00 am - Jazzy Garrett M.D. at [facility]A07/10/2018 9:30 am - Arlene Schilling MD at [facility]06/21/2018 - Jazzy Garrett M.D.M25.561 Pain in right kneeFollow up:Follow up: 2 weeks after zdmbqdcB85.461 Effusion, right kneeM17.11 Unilateral primary osteoarthritis, right knee
[2018-07-02] MEDS ORDERED: Dexamethasone IV* 4 MG/ML 1 ML (4 MG) IV SLOW PU ONE (06:00)
[2018-07-02] MEDS ORDERED: Famotidine IV* 10 MG/ML 2 ML (20 mg) IV ONE (06:00)
[2018-07-02] MEDS ORDERED: Gabapentin CAP(*) 300 MG PO ONE (06:00)
[2018-07-02] MEDS ORDERED: Lactated Ringers 1000 ML Bag* 1,000 ML IV SCH (06:00)
[2018-07-02] MEDS ORDERED: Dexamethasone IV* 4 MG/ML 1 ML (4 MG) ONE (06:29)
[2018-07-02] MEDS ORDERED: ceFAZolin 2 GM PREMIX in ORs 2 GM/50 ML BAG IVPB ONE (06:30)
[2018-07-02] MEDS ORDERED: Gabapentin CAP(*) 300 MG ONE (06:30)
[2018-07-02] MEDS ORDERED: Famotidine IV* 10 MG/ML 2 ML (20 mg) ONE (06:30)
[2018-07-02] MEDS ORDERED: ROPIVACAINE 5 MG/ML 30 ML BTL (0.5%) ONE ×2 (06:57→07:19)
[2018-07-02] MEDS ORDERED: Midazolam* 1 MG/ML 2 ML VIAL (2 MG) ONE (07:17)
[2018-07-02] MEDS ORDERED: fentaNYL* 50 MCG/ML 2 ML VIAL (100 MCG VIAL) ONE (07:17)
[2018-07-02] MEDS ORDERED: Lidocaine 2% PF * 5 ML VIAL ONE (07:19)
[2018-07-02] MEDS ORDERED: Propofol* 10 MG/ML 20 ML BTL ONE ×3 (07:44→13:17)
[2018-07-02] MEDS ORDERED: Glycopyrrolate IV* 0.2 MG/ML 1 ML VIAL ONE (07:48)
[2018-07-02] MEDS ORDERED: HYDROmorphone INJ1* 1 MG/ML SYRINGE IV PRN (09:28)
[2018-07-02] MEDS ORDERED: Naloxone* 0.4 MG/ML 1 ML VIAL IV PRN (09:28)
[2018-07-02] MEDS ORDERED: DiMENhydriNATE IV* 50 MG/ML VIAL IV PUSH PRN (09:28)
[2018-07-02] MEDS ORDERED: fentaNYL* 50 MCG/ML 2 ML VIAL (100 MCG VIAL) IV PRN (09:28)
[2018-07-02] MEDS ORDERED: Acetaminophen IV 1GM/100ML * 10 MG/ML VIAL IVPB ONE (09:28)
[2018-07-02] MEDS ORDERED: traMADol TAB* 50 MG PO PRN (10:24)
[2018-07-02] MEDS ORDERED: diPHENhydraMINE IV* 50 MG/ML 1 ml VIAL (BENADRYL) IV PRN (10:24)
[2018-07-02] MEDS ORDERED: Morphine 4 MG/ML VIAL (1 ml) 4 MG/ML VIAL IV PRN (10:24)
[2018-07-02] MEDS ORDERED: Bisacodyl SUPP* 10 MG SUPP PR PRN (10:24)
[2018-07-02] MEDS ORDERED: Polyethylene Glycol 3350* 17 GM PACKET PO PRN (10:24)
[2018-07-02] MEDS ORDERED: Magnesium Hydroxide LIQ* 30 ML UDC PO PRN (10:24)
[2018-07-02] MEDS ORDERED: Ondansetron TAB* 4 MG PO PRN (10:24)
[2018-07-02] MEDS ORDERED: Cyclobenzaprine TAB* 10 MG PO PRN (10:24)
[2018-07-02] MEDS ORDERED: Ondansetron INJ* 2 MG/ML VIAL IV PRN (10:24)
[2018-07-02] MEDS ORDERED: oxyCODONE/Acetamin 5/325 MG* TAB PO PRN (10:24)
[2018-07-02] MEDS ORDERED: Acetaminophen TAB* 325 MG PO SCH (11:00)
[2018-07-02] MEDS ORDERED: Acetaminophen IV 1GM/100ML * 100 ML ONE (11:19)
--- NOTE | 2018-07-02 14:05 | PN ---
Progress Note - Progress Note Date of Service: 07/02/18 Note: resting with no complaints. able to dorsi flex/plantar flex, 2+ DP pulse and intact sensation; dressing c/d/i
--- NOTE | 2018-07-02 15:33 | CONS ---
[facility] MEDICINE CONSULTATION REPORT: DATE OF CONSULT: 07/02/18 PROVIDER: Margo Segura NP ATTENDING PHYSICIAN: Dr. Garrett. CONSULTING PHYSICIAN: Dr. Lissy Cardona (dictated by Margo Segura NP). REASON FOR CONSULT: Co-management of chronic medical conditions. HISTORY OF PRESENT ILLNESS: Ms. Martinez is a 67-year-old female with a past medical history significant for hypertension, hyperlipidemia, GERD, COPD, asthma , depression, osteoarthritis, who presented to [facility] [place] an elective right total knee arthroplasty with Dr. Garrett. Please see dictated H and P from AMANDA Jacques, for complete details. In brief, the patient had ongoing pain and failed conservative measures; therefore, opted for a right total knee arthroplasty with Dr. Garrett. In the immediate postoperative period, the patient has no complaints. Due to the patient's chronic hypertension and COPD, we were asked to see and consult to co-manage her care during her hospitalization. PAST MEDICAL HISTORY: 1. Hypertension. 2. Hyperlipidemia. 3. GERD. 4. Asthma. 5. COPD. 6. Depression. PAST SURGICAL HISTORY: 1. Bilateral knee replacement. 2. . 3. Left finger repair. 4. Nasal surgery. 5. Tonsillectomy. HOME MEDICATIONS: 1. Atorvastatin 80 mg p.o. daily. 2. Advair 250/50 two puffs b.i.d. 3. Budesonide 3 mg 3 capsules daily. 4. Omeprazole 20 mg p.o. daily. 5. Zyrtec p.r.n. 6. Lisinopril 5 mg p.o. daily. 7. Tylenol p.r.n. 8. Aspirin 81 mg p.o. daily. 9. Vitamin E 1000 units p.o. daily. 10. Calcium/multivitamin 1 tablet p.o. daily. 11. Vitamin D3 1000 units p.o. daily. 12. Vitamin B12 500 mcg p.o. daily. 13. Escitalopram oxalate 5 mg p.o. daily. 14. Oxygen 2 L at h.s. daily. ALLERGIES: No known drug allergies. FAMILY HISTORY: Mother with a pacemaker in her 60s. Mother with a history of diabetes. Sister with breast cancer and another sister passed at the age of 68 with a brain tumor. SOCIAL HISTORY: The patient reports she quit smoking approximately 1 year ago. Prior to that, she smoked half a pack a day for approximately 36 years. Denies any illicit drug use. Denies any alcohol use. She is . Her 2 grandchildren live with her. REVIEW OF SYSTEMS: She denies any fever or chills. She denies any chest pain or edema. Denies any cough, hemoptysis, or shortness of breath. No nausea, vomiting, diarrhea, or abdominal pain. Denies any gross hematuria or dysuria. Denies any focal weakness or sensory loss. Denies any visual complaints, dysphagia, arthralgias, myalgias. Denies any rashes, lesions, or open sores. Denies any psychosis or anxiety. PHYSICAL EXAM: General: At this time, Ms. Martinez is a 67-year-old female, who is alert and oriented, resting on the stretcher in PACU. She has no complaints at this time. HEENT: Head is atraumatic, normocephalic. Eyes: EOMs are intact. Sclerae anicteric and not pale. Oral mucosa appeared to be moist. Neck is supple. Lungs are clear to auscultation bilaterally. No wheezes , rales, or rhonchi. Cardiac: S1, S2. Regular rate and rhythm. No murmurs, rubs, or gallops. She is bradycardic. Abdomen is soft and nontender. Bowel sounds are present x4. Musculoskeletal: She can move all 4 extremities. She does have a dressing that is dry and intact to her right knee. Pedal pulses are +2 bilaterally. Skin: She has a dressing dry and intact to the right knee. No other open lesions. Neurologic: She is awake, alert, and oriented x3. Speech is clear. Thought process is intact. There are no gross focal deficits. Psych: She is cooperative and calm. DIAGNOSTIC STUDIES/LAB DATA: CBC from 06/21/18: WBCs 7.6, RBCs 3.95, hemoglobin 12.7, hematocrit was 38, platelet count was 217. INR was 0.96, APTT was 27.2. Sodium 141, potassium 3.7, chloride 109, carbon dioxide 23, anion gap was 9, BUN was 17, creatinine 0.65, glucose was 87. ASTs were 13, ALTs were 17 , alkaline phosphatase was 41. Urine was within normal limits except for leukocyte esterase +1, and squamous epithelial cells were present. IMPRESSION AND PLAN: Ms. Martinez is a 67-year-old female with past medical history significant for hypertension, hyperlipidemia, depression, gastroesophageal reflux disease, chronic obstructive pulmonary disease and asthma, who presented to [facility] for elective right total knee arthroplasty with Dr. Garrett. In the immediate postoperative period, she has no complaints. Hospital Medicine was asked to consult due to her chronic medical conditions. Our recommendations are as follows: 1. Status post right total knee arthroplasty. Management per Orthopedics. PT/ OT per Orthopedics. Bowel regimen per Orthopedics. Pain medications per Orthopedics. 2. Hypertension. I would continue her lisinopril at 5 mg p.o. daily. 3. Chronic obstructive pulmonary disease/asthma. The patient should continue on her Advair 250/50 inhaler b.i.d. She should continue on oxygen 2 L at bedtime. She can have albuterol nebulizers as needed for shortness of breath or wheezing. 4. Hyperlipidemia. She should continue on atorvastatin 80 mg p.o. daily. 5. Gastroesophageal reflux disease. She should continue on omeprazole 20 mg p.o. daily. 6. DVT prophylaxis: Per Orthopedics. 7. Diet: I would recommend a regular diet. 8. Code status: She is a full code. TIME SPENT: Time spent on this consultation was 45 minutes; greater than half that time was spent at the bedside reviewing events leading thus far to her hospitalization, performing my physical exam, and reviewing my plan of care. I have discussed with my attending, Dr. Lissy Cardona; she is in agreement with my plan. MARGO SEGURA, MACHINE SPREADER [id number]/[facility] #: [id number] ANNE
[2018-07-02] MEDS: oxyCODONE/Acetamin 5/325 MG* TAB PO PRN ×2 (16:44→22:20)
[2018-07-02] MEDS: ceFAZolin 1 GM ADVAN(*) 1 GM in NS 0.9% 50 ML* 50 ML IVPB SCH (16:45)
[2018-07-02] MEDS: Lactated Ringers 1000 ML Bag* 1,000 ML IV SCH ×2 (16:48→22:24)
--- NOTE | 2018-07-02 17:39 | OP ---
Operative Report - Blank - Operative Report Date of Operation: 07/02/18 Note: STEPH WARREN 1950 Date of Surgery: 07/02/18 Jazzy Garrett MD Axle And Frame Mechanic: Lotus PATEL did help throughout the procedure with preparation of the knee, wound retraction, manipulation of the knee, and wound closure. Anesthesiologist: Keven CLAY Anesthesia Type: Spinal Preoperative Diagnosis: Right severe degenerative osteoarthritis of the knee Postoperative Diagnosis: As above Procedure Performed: Right Total Knee Arthroplasty Tourniquet time: 35 minutes Complications: None Specimen: Bone and cartilage from the right knee joint sent to pathology. Hardware Used: Cemented Diego and Nephew total knee hardware was used - For the femur a size 5 right narrow legion posterior stabilized femoral component, for the tibia a size 3 rich II tibial baseplate, for the insert a size 9mm 3-4 posterior stabilized articular polyethylene insert, and for the patella a size 32 3-peg all poly patella. Brief History/Indication: STEPH WARREN was known in clinic and had a history of severe right knee pain and swelling. She failed conservative treatment with anti-inflammatories, pain pills, intra-articular injections and physical therapy. She elected to undergo right total knee arthroplasty due to continued pain and decreased quality of life. Radiographs showed severe end stage osteoarthritis of the knee with bone on bone contact. Informed consent was obtained from the patient. She understood the risks of surgery included but were not limited to: bleeding, infection, damage to nearby structures, intraoperative fracture, nerve palsy, failure of the hardware, early loosening, knee stiffness or loss of motion, anesthesia complications, stroke, heart attack , blood clot and . She wished to proceed. Intra-Operative Findings: Intraoperatively the patient was noted to have severe loss of cartilage in all 3 compartments of the knee. Description of the Procedure: STEPH WARREN was identified in the preanesthesia unit. Her right knee was marked as the correct operative side. Informed consent was signed and placed in the chart. The patient was taken to the operating room and placed under anesthesia without complication. A sousa catheter was placed. A tourniquet was placed on the right thigh. The right lower extremity was prepped and draped in the usual sterile fashion. Preoperative time-out was made to correctly identify the patient, side and site. Appropriate intraoperative antibiotics were given within one hour of incision. Tourniquet was inflated. A midline incision was made and carried sharply down to the extensor mechanism. A new 10 blade was used to make a standard medial parapatellar arthrotomy. The patella was subluxed laterally. Electrocautery was used to dissect soft tissue off the superomedial tibia to the midsagittal plane. The knee was flexed up. The anterior horn of the lateral meniscus and the ACL were sharply incised. A drill was used to enter the distal femur. The intramedullary distal femoral cutting guide was pinned on the distal femur. The oscillating saw was used to make the distal femoral cut. The external rotation guide was pinned on the distal femur and the distal femur was sized to a size 5. The size 5 multi-cutting jig was pinned on the distal femur. The oscillating saw was used to make the appropriate 4 chamfer cuts. Next the PCL was completely released. The extramedullary tibial cutting guide was pinned on the proximal tibia and the oscillating saw was used to make the proximal tibial cut perpendicular to the mechanical axis of the tibia. The bone was carefully removed. The knee was brought out into full extension. The spacer block was placed and had excellent fit with the knee in full extension. The medial and lateral ligaments were well balanced. The flexion and extension gaps were well balanced. The knee was flexed up. Lamina lapping machine set up operator was placed both medially and laterally. Any remaining meniscus was removed with electrocautery. Curved osteotome was used to remove any posterior osteophytes. The tibial tray and drop reagan were placed and confirmed a satisfactory tibial cut. The size 5 right narrow femoral trial was impacted onto the distal femur. This trial had excellent fit and stability. The box for the posterior stabilized implant was prepared using a box cut osteotome and a reamer. Next a tibial tray trial and 9 mm insert trial was placed. The knee was taken through a range of motion and had full extension to 130 degrees of flexion. Patellofemoral tracking was satisfactory. The patella was inverted and sized to a size 32. Three peg holes were drilled through the size 32 drill guide. The trial patella was placed and the knee was taken through a range of motion. There was satisfactory patellofemoral tracking. All trials were removed. The tibia was subluxed anteriorly and sized to a size 3. The proximal tibial was prepared with a size 3 keel punch. All bony cut surfaces were irrigated with sterile saline and dried. Final implants were cemented into place starting with the tibia, followed by the femur, and last the patella. A 9 mm insert trial was placed and the knee was brought into full extension. Tourniquet was turned down and the knee was copiously irrigated with sterile saline. Electrocautery was used to obtain meticulous hemostasis. Once the cement had fully cured, the insert trial was removed. Any excess cement was removed from around the hardware and capsule. Final insert chosen was a 9 mm posterior stabilized Rich II articular insert size 3-4. Stability of the insert was checked and noted to be stable. The extensor mechanism was closed using number 1 vicryls. The rest of the incision was closed in a layered fashion using 0 and 2-0 vicryls. The skin was closed using 3-0 nylon suture. Sterile xeroform, 4x4s and webril were used to cover the incision. William wrap and cold pack were used to cover the dressings. The patients anesthesia was reversed without difficulty. She was taken to the PACU in stable condition. Intended weight-bearing will be as tolerated.
[2018-07-02] MEDS: Mometasone/Formoter 200/5 MDI INH SCH (19:36)
[2018-07-02] MEDS: oxyCODONE TAB* 5 MG TAB PO PRN (20:26)
[2018-07-02] MEDS: Acetaminophen TAB* 325 MG PO SCH (20:50)
[2018-07-02] MEDS: Docusate CAP* 100 MG PO SCH (22:20)
[2018-07-02] MEDS: Magnesium Hydroxide LIQ* 30 ML UDC PO SCH (22:22)
[2018-07-03] MEDS: ceFAZolin 1 GM ADVAN(*) 1 GM in NS 0.9% 50 ML* 50 ML IVPB SCH ×2 (00:26→09:00)
[2018-07-03] MEDS: oxyCODONE TAB* 5 MG TAB PO PRN ×4 (00:27→16:54)
[2018-07-03] MEDS: Acetaminophen TAB* 325 MG PO SCH ×2 (02:40→12:08)
[2018-07-03] MEDS: oxyCODONE/Acetamin 5/325 MG* TAB PO PRN ×3 (03:27→14:20)
[2018-07-03 06:45] LABS: Hematocrit 34 % (35-47); Hemoglobin 11.4 g/dL (12.0-16.0); Mean Platelet Volume 8.9 fL (7.4-10.4); Platelet Count 202 10^3/uL (150-450)
[2018-07-03 07:06] LABS: BUN/Creatinine Ratio 28.3 (8-20); Calcium 8.8 mg/dL (8.6-10.3)
[2018-07-03] MEDS: Mometasone/Formoter 200/5 MDI INH SCH (08:50)
[2018-07-03] MEDS: Lactated Ringers 1000 ML Bag* 1,000 ML IV SCH (08:51)
[2018-07-03] MEDS ORDERED: CMCS:Budesonide CAP(NF) 3 MG PO SCH (09:00)
[2018-07-03] MEDS ORDERED: Lisinopril TAB* 5 MG PO SCH (09:00)
[2018-07-03] MEDS ORDERED: Atorvastatin* 80 MG TAB PO SCH (09:00)
[2018-07-03] MEDS ORDERED: Pantoprazole TAB * 40 MG TAB PO SCH (09:00)
[2018-07-03] MEDS ORDERED: Escitalopram * 5 MG TAB PO SCH (09:00)
[2018-07-03] MEDS ORDERED: Cetirizine* 10 MG TAB PO SCH (09:00)
[2018-07-03] MEDS ORDERED: Apixaban* 2.5 MG TAB PO SCH (09:00)
[2018-07-03] MEDS: Docusate CAP* 100 MG PO SCH (09:03)
[2018-07-03] MEDS: Magnesium Hydroxide LIQ* 30 ML UDC PO SCH (09:03)
--- NOTE | 2018-07-03 09:37 | PN ---
Progress Note - Progress Note Date of Service: 07/03/18 SOAP: Subjective: []Pt seen and examined at bedside. She has no complaints. Right knee pain is well controlled. Denies CP, SOB, dizziness, nausea. Has COPD, uses O2 at night. Feels the breathing treatment she received significantly improved her breathing. Objective: []General: Appears well, NAD RLE: Right knee dressing CDI, thigh soft, DF/PF intact, capillary refill less than two seconds distally, sensation intact to light touch distally Calves supple and nontender without erythema, edema or palpable cords Assessment: [] right total knee arthroplasty pod 1 Plan: []WBAT PT/OT IS, wean off of daytime O2 as able Plan for DC home likely tomorrow Vital Signs Temp 98.0 F 07/03/18 03:18 Pulse 48 07/03/18 08:00 Resp 16 07/03/18 08:55 BP 131/56 07/03/18 03:18 Pulse Ox 95 07/03/18 08:00 Intake & Output 07/02/18 07/03/18 07/03/18 18:59 06:59 18:59 Intake Total 1900 1200 1358 Output Total 2100 1555 Balance -200 -355 1358 Intake: IV Fluids 1900 980 LR 1800 980 NS 50ML, Cefazolin 2G 50 TRANEXAMIC ACID 1GM 50ML 50 IVPB 58 ABX - CEFAZOLIN 58 Oral 1200 320 Output: Gonsalez 1900 1555 Estimated Blood Loss 200 Other: # Bowel Movements 0 Laboratory Last Values Hgb 11.4 g/dL (12.0-16.0) L 07/03/18 06:23 Hct 34 % (35-47) L 07/03/18 06:23 Plt Count 202 10^3/uL (150-450) 07/03/18 06:23 MPV 8.9 fL (7.4-10.4) 07/03/18 06:23 Sodium 136 mmol/L (135-145) 07/03/18 06:23 Potassium 4.0 mmol/L (3.5-5.0) 07/03/18 06:23 Chloride 101 mmol/L (101-111) 07/03/18 06:23 Carbon Dioxide 29 mmol/L (22-32) 07/03/18 06:23 Anion Gap 6 mmol/L (2-11) 07/03/18 06:23 BUN 17 mg/dL (6-24) 07/03/18 06:23 Creatinine 0.60 mg/dL (0.51-0.95) 07/03/18 06:23 Est GFR ( Amer) 121.0 (>60) 07/03/18 06:23 Est GFR (Non-Af Amer) 100.0 (>60) 07/03/18 06:23 BUN/Creatinine Ratio 28.3 (8-20) H 07/03/18 06:23 Glucose 122 mg/dL (70-100) H 07/03/18 06:23 Calcium 8.8 mg/dL (8.6-10.3) 07/03/18 06:23
--- NOTE | 2018-07-03 15:03 | DS ---
Orthopedic Discharge Summary - Discharge Summary Date of Admission:07/02/18 Date of Discharge: 07/03/18 Date of Surgery: 07/02/18 Attending Orthopedic Provider: Dr Garrett Pre-operative Diagnosis: Right knee arthritis Operative Procedure: right total knee replacement Condition of Patient: stable History: STEPH WARREN is a 67 year old F with years of increasingly severe right knee pain. Patient has failed conservative management and has elected to undergo a right total knee replacement Hospital Course: STEPH was admitted to [facility] on 07/02/18. Patient underwent a right total knee replacement without complication followed by a brief recovery in PACU and transfer to the Short Stay Surgical Unit in stable condition. Our hospitalist service, physical therapy and occupational therapy also participated in this patients care. Post-op day 1: patient was alert and in no acute distress. Dressing was changed, incision clean, dry and intact. Operative extremity dorsiflexion and plantarflexion intact, sensation intact to light touch distally, DP2+. Patient was deemed to be medically and orthopedically stable for discharge home. Physical therapy goals were met. Discharge Medications Medication Instructions Recorded Confirmed Type Cetirizine* ZyrTEC 10 MG TAB* 10 mg PO QAM 06/08/14 07/02/18 History Lisinopril TAB* [Prinivil TAB 5 5 mg PO QAM 06/08/14 07/02/18 History MG*] Acetaminophen [Tylenol Arthritis] 1,300 mg PO BID PRN 04/12/18 07/02/18 History Atorvastatin* [Lipitor 80 MG*] 80 mg PO QAM 04/12/18 07/02/18 History Budesonide CAP(NF) 9 mg PO QAM 04/12/18 07/02/18 History Omeprazole (Nf) [Prilosec (NF)] 40 mg PO QAM 04/12/18 07/02/18 History Escitalopram * [Lexapro 5 mg (NF)] 5 mg PO QAM 04/24/18 07/02/18 History Fluticasone-Salmeterol 500-50* 1 puff INH BID 04/24/18 07/02/18 History [Advair Diskus 500-50*] Aspirin [Aspir-Low] 81 mg PO QAM 06/21/18 07/02/18 History Calcium Carbonate/Vitamin D3 1 tab PO QAM 06/21/18 07/02/18 History [Calcium 600 + Vit D Tablet] Cholecalciferol (Vitamin D3) 1 cap PO QAM 06/21/18 07/02/18 History [Vitamin D3] Cyanocobalamin (Vitamin B-12) 1 tab PO QAM 06/21/18 07/02/18 History [Vitamin B12] Mv-Min/Iron/Folic/Calcium/Vitk 1 tab PO QAM 06/21/18 07/02/18 History [Women's Daily Formula Tablet] Vitamin E 1 cap PO QAM 06/21/18 07/02/18 History Acetaminophen TAB* [Tylenol TAB*] 975 mg PO Q8H tab 07/03/18 Rx Apixaban* [Eliquis*] 2.5 mg PO BID 30 Days #60 tab 07/03/18 Rx Docusate CAP* [Colace Cap*] 100 mg PO BID #90 cap 07/03/18 Rx oxyCODONE/Acetamin 5/325 MG* 1 tab PO Q4H PRN tab MDD 10 07/03/18 Rx [Percocet 5/325 TAB*] oxyCODONE/Acetamin 5/325 MG* 2 tab PO Q4H PRN #70 tab MDD 10 07/03/18 Rx [Percocet 5/325 TAB*] Discharge to home with outpatient PT Discharge Instructions following Orthopedic Surgery: Activity: * Weight Bearing as tolerated * Continue physical therapy and occupational therapy exercises as shown * Outpatient physical therapy Wound care: * OK to shower on post-op day 3, no bathing, swimming, or submerging wound. * Use gentle soap, pat dry. Cover with gauze, JOSE wrap or tape.. Call Orthopedic office for: * Increased drainage * Redness * Increased pain * Fever Go to ER with shortness of breath or chest pain. Diet: * Regular diet * Increase fluids and fiber to prevent constipation. * Continue to use stool softeners, call office if no bowel motion within 48 hours. Medications See Home Medication List in your packet for medications that you should take after discharge. DVT Prophylaxis: Eliquis Dosin.5 mg, 1 tab every 12 hours x 30 days. This medication increases bleeding tendency Pain Control: Percocet Dosin/325 mg 1-2 tabs by mouth every 4-6 hours as needed for pain. Maximum of 10 tabs per day. Wean off as soon as pain allows. Hold for sedation Please note that Percocet contains Tylenol (acetaminophen). Maximum daily dose of Tylenol is 4000 mg from all sources. Antibiotics are required prior to any dental work. FOLLOW UP: Follow up with [Gerry ] Within 10-14 days, call for appointment Please call our office with any questions or concerns ([phone])
[2018-07-03 17:22] VITALS: BP 142/55
== END 2018-07-03 17:55 | disposition home or self-care (01) | DRG 470 ==
LOC: AA 07-02 05:45 → SSU 07-02 10:25
PROVIDERS: ADMIT Orthopaedic Surgery Adult Reconstructive Orthopaedic Surgery; ATTEND Orthopaedic Surgery Adult Reconstructive Orthopaedic Surgery
PROC: 0SRC0J9 Replacement of Right Knee Joint with Synthetic Substitute, Cemented, Open Approach (ICD-10-PCS; principal; 2018-07-02 07:45)
DX: M17.11 Unilateral primary osteoarthritis, right knee (principal); J44.9 Chronic obstructive pulmonary disease, unspecified; I10 Essential (primary) hypertension; E78.00 Pure hypercholesterolemia, unspecified; K21.9 Gastro-esophageal reflux disease without esophagitis; M25.761 Osteophyte, right knee; F32.9 Major depressive disorder, single episode, unspecified; E78.5 Hyperlipidemia, unspecified; Z79.1 Long term (current) use of non-steroidal anti-inflammatories (NSAID); Z79.82 Long term (current) use of aspirin; Z79.899 Other long term (current) drug therapy; Z82.49 Family history of ischemic heart disease and other diseases of the circulatory system; Z82.3 Family history of stroke; Z80.9 Family history of malignant neoplasm, unspecified; Z83.49 Family history of other endocrine, nutritional and metabolic diseases; Z87.891 Personal history of nicotine dependence
CPT/HCPCS: 36415; 80048; 85014; 85018; 85049; 88305; 88311; 94640; A9270-GY; C1776; G8978-GP-CL; G8979-GP-CI; J0690; J1100; J2250; J2270; J2405; J2704; J2795; J3010

== ENCOUNTER 2019-01-20 12:06 | Observation (INO) | payer MEDICARE ==
[2019-01-20 12:54] LABS: ABS Basophils 0.1 10^3/ul (0-0.2); ABS Eosinophils 0.1 10^3/ul (0-0.6); ABS Lymphocytes 1.4 10^3/ul (1.0-4.8); ABS Monocytes 0.6 10^3/ul (0-0.8); ABS Neutrophils 4.4 10^3/ul (1.5-7.7); Eosinophil % 1.5 %; Hematocrit 40 % (35-47); Hemoglobin 13.3 g/dL (12.0-16.0); Lymphocyte % 21.1 %; Mean Corpuscular HGB Conc 33 g/dL (31-36); Mean Corpuscular Hemoglobin 31 pg (27-31); Mean Corpuscular Volume 94 fL (80-97); Mean Platelet Volume 8.8 fL (7.4-10.4); Platelet Count 224 10^3/uL (150-450); Red Blood Count 4.24 10^6 /uL (3.70-4.87); Red Cell Distribution Width 14 % (10-15); White Blood Count 6.5 10^3/uL (3.5-10.8)
[2019-01-20] MEDS ORDERED: ceFAZolin 2 GM in NS 100 ml - ONCE (Pharmacy Admix) IVPB ONE (13:00)
[2019-01-20] MEDS ORDERED: ceFAZolin 1 GM/10 ML flush(*) SYRINGE for pocket flush (cardiology) FLUSH ONE (13:00)
[2019-01-20 13:04] LABS: Activated Partial Thrombo Time 27.7 seconds (26.0-38.0); INR 0.96 (0.82-1.09)
[2019-01-20 13:08] LABS: Calcium 9.9 mg/dL (8.6-10.3)
[2019-01-20 13:14] LABS: BUN/Creatinine Ratio 41.7 (8-20); EGFR African American 97.8 (>60); EGFR Non-African American 80.8 (>60)
[2019-01-20] MEDS ORDERED: Lidocaine 1% INJ* 10 MG/ML 30 ML SDV ONE (13:28)
[2019-01-20] MEDS ORDERED: fentaNYL* 50 MCG/ML 2 ML VIAL (100 MCG VIAL) ONE (13:29)
[2019-01-20] MEDS ORDERED: Midazolam* 1 MG/ML 5 ML VIAL (5 MG) ONE (13:29)
[2019-01-20] MEDS ORDERED: Acetaminophen TAB* 325 MG PO PRN (14:40)
[2019-01-20] MEDS: ceFAZolin VIAL(*) 1 GM in NS 0.9% 50 ML* 50 ML IVPB SCH (21:47)
[2019-01-20] MEDS: oxyCODONE/Acetamin 5/325 MG* TAB PO PRN (21:47)
--- NOTE | 2019-01-20 21:57 | OP ---
CC: Dr. Stevens * DATE OF OPERATION: 01/20/19 - ROOM #453 DATE OF : 52 SURGEON: Wesley Fernandez MD ANESTHESIA: Local anesthesia with conscious sedation. PRE-OP DIAGNOSES: 1. Sick sinus syndrome. 2. Bradycardia. POST-OP DIAGNOSES: 1. Sick sinus syndrome. 2. Bradycardia. OPERATIVE PROCEDURE: Dual-chamber pacemaker implantation. INDICATIONS: The patient is a 68-year-old woman with a history of symptomatic bradycardia and poor heart rate response at exercise. Permanent pacemaker was recommended by Dr. Stevens. ESTIMATED BLOOD LOSS: Nil. COMPLICATIONS: None. DESCRIPTION OF PROCEDURE: The patient was brought to the procedure room in a fasting state. Informed consent had been obtained prior to the procedure. All labs had been reviewed. The patient was placed supine on the procedure table. Her left deltopectoral area was cleaned and draped in the usual fashion. 1% lidocaine was used for local anesthesia. The axillary vein was entered by a Seldinger technique using ultrasound guidance. A guidewire was placed. A second guidewire was placed under the same technique. A 3.5-cm incision was made in the pectoral area. A blunt dissection was carried down to the pectoral fascia and a pocket was fashioned for the pacemaker. Over the first guidewire, a 7-Syriac sheath introducer was placed through which a right ventricular lead was advanced to the RV apex. The right ventricular lead is a Medtronic model 5076, serial number [id number] and had an R-wave sensitivity of 7, impedance 1092 ohms, threshold 1.4 volts at 0.5 milliseconds. The ventricular lead was sutured to the pectoral fascia. Over the second guidewire, a 7-Syriac sheath introducer was placed, through which a right atrial lead was advanced to the high right atrium. The right atrial lead is a Medtronic model 5076, serial number [id number]. The right atrial lead was sutured to the pectoral fascia and had a P-wave sensitivity of 1.5, impedance 795 ohms, threshold 1.2 volts at 0.5 milliseconds. The pocket was flushed with antibiotic-infused normal saline. A generator was attached appropriately to the atrioventricular lead. The generator is a Medtronic model W1DR01, serial number [id number]. The device was placed in the pocket and surgical incision was closed in 3 layers. The patient was returned to the holding area in stable condition. [id number]/[id number] #: [id number]
[2019-01-21] MEDS: ceFAZolin VIAL(*) 1 GM in NS 0.9% 50 ML* 50 ML IVPB SCH (05:06)
[2019-01-21] MEDS: oxyCODONE/Acetamin 5/325 MG* TAB PO PRN (05:14)
--- NOTE | 2019-01-21 13:09 | DS ---
CC: Dr. Stevens * DISCHARGE SUMMARY: DATE OF ADMISSION: 01/20/19 DATE OF DISCHARGE: Pending no complications, 01/21/19 ATTENDING PHYSICIAN: Dr. Wesley Fernandez.* (DICTATED BY PIOTR GRAJEDA NP) PRIMARY PHYSICIAN: Dr. Aziza Norton. PRIMARY BUSHEL WORKER: Dr. Stevens. ADMITTING DIAGNOSES: 1. Symptomatic chronotropic insufficiency, here for elective pacemaker implantation. 2. History of hyperlipidemia, on statin therapy. 3. History of hypertension. 4. History of chronic obstructive pulmonary disease. DISCHARGE DIAGNOSES: 1. Chronotropic insufficiency with complaints of fatigue and inability to do activities. 2. Status post dual-chamber pacemaker implantation 01/20/[address] Wesley Fernandez. 3. History of hyperlipidemia, on statin therapy. 4. History of hypertension. 5. History of chronic obstructive pulmonary disease. PROCEDURES PERFORMED: The patient underwent dual-chamber permanent pacemaker implantation with Dr. Wesley Fernandez due to symptomatic chronotropic insufficiency on 01/20/19. Procedure report is not transcribed as of yet. For further information please refer to procedure report once transcribed. COMPLICATIONS: None. COURSE HOSPITAL STAY: This is a pleasant 68-year-old female patient with a notable history of hypertension, hyperlipidemia, COPD, who follows Dr. Stevens of our practice. According to outpatient medical record, she was seen in consultation on 01/01/[address] Wesley Fernandez due to concerns for symptomatic chronotropic insufficiency. She apparently had a Holter monitor on 05/21/18, which demonstrated average ventricular rate of 50 beats per minute, and also showed she had heart rate down as well as 47 when active. She underwent a stress test on 12/25/18, she exercised for 7 minutes. Her maximum heart rate was 89 beats per minute confirming diagnosis of chronotropic incompetence. Her main complaint is fatigue. She was offered elective permanent pacemaker implantation due to chronotropic incompetence. She presented to [facility] on 01/20/19 for elective permanent pacemaker implantation. Prior to having procedure performed, she had basic labs on 01/01/19, white count 7.5, hemoglobin 12.6, hematocrit 38, platelets 235, INR was 0.95, sodium 141, K 4.7, creatinine 0.72. There were no complications postprocedure. Device check this morning was reviewed. Normal pacemaker function. No ventricular events. No AFib. Her atrial pacing threshold is 0.5 V at 0.4 milliseconds. Her right ventricle pacing threshold is 0.75 V at 0.4 milliseconds. She is ventricularly paced 10.3% of time, atrial pacing 9.8% of the time. Current rhythm is A-paced V-sensed. Device is [employer]. For further information in regards to lead and device information please refer to procedure note. Vital signs have remained normal. Most recent set of vital signs was 01/21/19 at 0315, temperature 98.2, pulse 60, oxygenation 99% on room air, respiration 16. She still needs a chest x-ray to rule out pneumothorax, which is pending at this time, device site was examined. There is no evidence of pocket hematoma, edges are well approximated with mary lou in situ, scant blood noted on dressing, nontender to palpation. Lungs sounds are slightly diminished, however, clear throughout. There is no chest pain reported. Normal S1, S2, regular rate, no murmur, no gallop, no rub. No edema noted. She offers no complaints at this time. There has been no events on telemetry. We will await chest x-ray and likely discharge home in stable condition later today. DISPOSITION: Home in stable condition. FOLLOWUP APPOINTMENTS: 1. The patient is to follow up with Aziza Hernandez primary physician in 7 to [address] Wesely Fernandez on 01/28/19 at 1245 at [facility]. OUTPATIENT LABS: To be obtained none. DISCHARGE MEDICATIONS: Include: 1. Tylenol 650 mg p.o. q.4h. p.r.n. 2. Keflex 250 mg p.o. t.i.d. x3 days. 3. Ventolin HFA as directed. 4. Fluticasone propionate 50 mcg/ACT 1 spray per nostril twice a day as needed. 5. Atorvastatin 80 mg p.o. q.h.s. 6. Budesonide 3 mg 3 capsule daily. 7. Omeprazole 40 mg a day. 8. Zyrtec 10 mg p.o. daily. 9. Lisinopril 10 mg a day. 10. Escitalopram 5 mg p.o. daily. 11. Aspirin 81 mg a day. 12. Advair HFA as directed. ACTIVITY RESTRICTION: The patient was informed that she may shower starting tomorrow on 01/22/19, however, she is not to soak left anterior chest device site. She is to not take a bath or put showerhead directly on device site wound. She is aware that she is to wear arm immobilizer as directed including while she is sleeping for the next 6 weeks. She is aware not to lift more than 5 to 10 pounds until further directed. She is aware to not lift left upper extremity above shoulder until further direction or to reach behind her until she is further directed. I went over wound care with the patient. She is aware to contact her practice should she notice any swelling, inflammation, oozing, bleeding, pain or discomfort at device site. Pending no complications and this morning's chest x-ray, she will likely go home in stable condition. Dr. Wesley Fernandez has seen and examined, the patient agrees with the above assessment and plan. PIOTR GRAJEDA NP [id number]/[facility] #: [id number] ANNE
[2019-01-21 13:24] VITALS: BP 128/73
== END 2019-01-21 13:00 | disposition home or self-care (01) ==
LOC: CHICATH 12:06 → MEDTELE 14:40 → INTOOBSV 14:40
PROVIDERS: ADMIT Specialist; ATTEND Specialist
DX: I49.5 Sick sinus syndrome (principal); R00.1 Bradycardia, unspecified; I10 Essential (primary) hypertension; E78.5 Hyperlipidemia, unspecified; J44.9 Chronic obstructive pulmonary disease, unspecified; K21.9 Gastro-esophageal reflux disease without esophagitis; Z79.899 Other long term (current) drug therapy; Z79.82 Long term (current) use of aspirin; Z88.8 Allergy status to other drugs, medicaments and biological substances; F32.9 Major depressive disorder, single episode, unspecified; Z87.891 Personal history of nicotine dependence
CPT/HCPCS: 33208; 36415; 71045; 71046; 80048; 85025; 85610; 85730; 93005; 94660; 99156; 99157; A9270-GY; C1785; C1892; C1898; G0378; J0690; J2250; J3010

== ENCOUNTER 2019-01-22 09:15 | Inpatient (IN) | payer MEDICARE ==
--- NOTE | 2019-01-22 09:36 | ED ---
HPI Cardiac - HPI Summary HPI Summary: The patient is a 68 y/o F presenting to [facility] with a chief complaint of loud heart rate and right substernal pain this morning. She reports that she woke up with her heart beating loudly with pain on the right lower anterior chest. She denies any palpitations, but she endorses shortness of breath with the pain. She denies edema. Currently, her symptoms are rated 4/10 in severity. Movement aggravates the pain. She is concerned because she had a pacemaker placed on with Dr. Fernandez, and she wants to make sure that it is okay. PMHx: HLD, HTN , pacemaker, COPD, anxiety. Former smoker, no EtOH, no substance use. Medications reviewed. Allergies noted. - History of Current Complaint Chief Complaint: EDGeneral Stated Complaint: CHEST PAIN Time Seen by Provider: 01/22/19 09:27 Hx Obtained From: Patient Onset/Duration: Started Hours Ago - this morning, Still Present Timing: Lasting Hours Initial Severity: Moderate Current Severity: Moderate Pain Intensity: 4 Pain Scale Used: 0-10 Numeric Chest Pain Location: Right Anterior - substernal Chest Pain Radiates: No Character: Dull/Aching, Other: - "loud" heart rate Aggravating Factor(s): Movement Alleviating Factor(s): Nothing Associated Signs and Symptoms: Positive: Chest Pain, Shortness of Breath. Negative: Palpitations, Edema - Additional Pertinent History Primary Care Physician: [id number] - Allergy/Home Medications Allergies/Adverse Reactions: Allergies Allergy/AdvReac Type Severity Reaction Status Date / Time latex Allergy Rash And Verified 07/02/18 06:37 Itching Perfume [Fragrance] Allergy diff. Verified 07/02/18 06:37 breathing tobramycin Allergy Itching Verified 07/02/18 06:37 wool Allergy Unknown Verified 01/17/19 13:27 Reaction Details NSAIDS (Non-Steroidal AdvReac GI Upset Verified 07/02/18 06:37 Anti-Inflamma environmental Allergy Difficulty Uncoded 07/02/18 06:37 Breathing/Wheezing Home Medications: Home Medications Calcium Carbonate CHEW TAB* [Tums*] 500 - 1,000 mg PO Q3H PRN 01/22/19 [History Confirmed 01/22/19] Cholecalciferol TAB* [Vitamin D TAB*] 1,600 unit PO DAILY 01/22/19 [History Confirmed 01/22/19] Diclofenac Sodium 1 applic TOPICAL BID 01/22/19 [History Confirmed 01/22/19] Famotidine TAB 40 MG(NF) [Pepcid TAB 40 MG(NF)] 40 mg PO BEDTIME 01/22/19 [ History Confirmed 01/22/19] Hydrocortisone Valerate 1 applic TOPICAL BID 01/22/19 [History Confirmed ] Ketoconazole 2 % CREAM (NF) [Nizoral 2% CREAM (NF)] 1 applic TOPICAL BID [History Confirmed 01/22/19] PMH/Surg Hx/FS Hx/Imm Hx Endocrine/Hematology History: Denies: Hx Diabetes Cardiovascular History: Reports: Hx Angina, Hx Hypercholesterolemia, Hx Hypertension - on meds, Hx Pacemaker/ICD - PACER, Other Cardiovascular Problems/ Disorders - BRADYCARDIA-oxygen at night at 2 liters nasal canula,HYPERLIPIDEMIA Denies: Hx Coronary Artery Disease Respiratory History: Reports: Hx Asthma, Hx Chronic Obstructive Pulmonary Disease (COPD), Hx Sleep Apnea - DOESN'T USE MACHINE, Other Respiratory Problems /Disorders - Pneumonia age 8-9 GI History: Reports: Hx Gastroesophageal Reflux Disease, Other GI Disorders - MICROSCOPIC COLITIS-OK WITH MED History: Denies: Other Problems/Disorders Musculoskeletal History: Reports: Hx Arthritis - ANKLES, KNEES, HANDS, ELBOWS, SHOULDERS, HIP, Hx Bursitis - RIGHT SHOULDER, Hx Osteoporosis Denies: Other Musculoskeletal History - LEFT PINKY-SURGERY FOR FX Sensory History: Reports: Hx Contacts or Glasses, Hx Hearing Aid Opthamlomology History: Reports: Hx Contacts or Glasses Neurological History: Denies: Other Neuro Impairments/Disorders Psychiatric History: Reports: Hx Anxiety - anxiety due to quitting smoking and pending surgery, Hx Depression - PRN- JONA'S WART Denies: Hx Panic Disorder, Other Psychiatric Issues/Disorders - Cancer History Hx Chemotherapy: No Hx Radiation Therapy: No - Surgical History Surgical History: Yes Surgery Procedure, Year, and Place: 1969 RT KNEE [facility], 1973 C SECTION [facility], 1976 C SECTION [facility], 1976 TUBES TIED, 2009 LT KNEE ARTHROSCOPY [facility], LEFT PINKY, WISDOM TEETH, FRACTURED NOSE Hx Anesthesia Reactions: No Infectious Disease History: No Infectious Disease History: Denies: History Other Infectious Disease, Traveled Outside the [place] in Last 30 Days - Family History Known Family History: Positive: Hypertension - Social History Alcohol Use: None Hx Substance Use: No Substance Use Type: Reports: None Hx Tobacco Use: Yes Smoking Status (MU): Former Smoker Type: Cigarettes Amount Used/How Often: PACK A DAY FOR 20 YRS Have You Smoked in the Last Year: Yes Review of Systems Positive: Chest Pain - substernal on right, Other - "loud" heart rate. Negative : Palpitations Positive: Shortness Of Breath - with chest pain Negative: Edema All Other Systems Reviewed And Are Negative: Yes Physical Exam - Summary Physical Exam Summary: VITAL SIGNS: Reviewed. GENERAL: Patient is a well-developed and nourished female who is lying comfortable in the stretcher. Patient is not in any acute respiratory distress. HEAD AND FACE: No signs of trauma. No ecchymosis, hematomas or skull depressions. No sinus tenderness. EYES: PERRLA, EOMI x 2, No injected conjunctiva, no nystagmus. EARS: Hearing grossly intact. Ear canals and tympanic membranes are within normal limits. MOUTH: Oropharynx within normal limits. NECK: Supple, trachea is midline, no adenopathy, no JVD, no carotid bruit, no c- spine tenderness, neck with full ROM. CHEST: Symmetric, no tenderness at palpation. LUNGS: Clear to auscultation bilaterally. No wheezing or crackles. CVS: Regular rate and rhythm, S1 and S2 present, no murmurs or gallops appreciated. ABDOMEN: Soft, non-tender. No signs of distention. No rebound, no guarding, and no masses palpated. Bowel sounds are normal. EXTREMITIES: FROM in all major joints, no edema, no cyanosis or clubbing. NEURO: Alert and oriented x 3. No acute neurological deficits. Speech is normal and follows commands. SKIN: Dry and warm. Triage Information Reviewed: Yes Vital Signs On Initial Exam: Initial Vitals Temp Pulse Resp BP Pulse Ox 97.9 F 66 18 156/56 98 01/22/19 09:20 01/22/19 09:20 01/22/19 09:20 01/22/19 09:20 01/22/19 09:20 Vital Signs Reviewed: Yes Procedures - Sedation Patient Received Moderate/Deep Sedation with Procedure: No Diagnostics - Vital Signs Vital Signs Temp Pulse Resp BP Pulse Ox 01/22/19 09:20 97.9 F 66 18 156/56 98 - Laboratory Result Diagrams: 01/22/19 09:40 01/22/19 09:40 Lab Statement: Any lab studies that have been ordered have been reviewed, and results considered in the medical decision making process. - Radiology Chest X-Ray Radiology Interpretation Completed By: Radiologist Summary of Radiographic Findings: Impression: No active cardiopulmonary disease is noted. ED physician has reviewed this report. - EKG 0920 Cardiac Rate: Other Rate - 61 BPM Summary of EKG Findings: EKG at 0920 reveals atrial paced rhythm at 61 BPM. No STEMI. ED physician has reviewed and interpreted this EKG. Re-Evaluation - Re-Evaluation First Eval Re-Evaluation Time: 11:55 Comment: We discussed results and plan for admission. Disposition - Course Assessment/Plan: This patient is a 58-year-old female who presents to the emergency department with a chief complaint of having palpitations and chest pain. Past medical history: Essential hypertension, Sick sinus syndrome status post pacemaker, GERD, COPD, Dyslipidemia, Depression. Blood work results: CBC within normal limits. CMP within normal limits except for glucose of 105 and troponin of 0.05. Chest x-ray impression: No active cardiopulmonary disease. EKG shows no ST elevation. In the ED course the patient was given aspirin, nitroglycerin patch, and Lopressor. Because the elevation of the troponin, I discussed my physical exam and findings with Dr. Howard from the hospitalist services, who accepted patient for admission. I discussed the patient with Dr. Fernandez from cardiology, and he agrees with admission for ECHO and chemical stress test. The patient is hemodynamically stable. - Differential Dx - Cardiopulmonary Differential Diagnoses - Cardiopulmonary: Acute Coronary, CAD, CHF, Chest Wall Pain - Diagnoses Provider Diagnoses: Chest pain, Elevated troponin - Physician Notifications Discussed Care Of Patient With: Argelia Howard - hospitalist Time Discussed With Above Provider: 10:20 Instructed by Provider To: Other - I discussed the patient's case with Dr. Howard, who accepts the patient for admission. I spoke with Dr. Fernandez, incident response lead, at 1130. He agrees with admission with echo and chemical stress test. Discharge ED - Sign-Out/Discharge Documenting (check all that apply): Patient Departure - Patient accepted for admission by Dr. Howard. - Discharge Plan Condition: Stable Disposition: ADMITTED TO [facility] - Billing Disposition and Condition Condition: STABLE Disposition: Admitted to [facility] - Attestation Statements Document Initiated by Lizette: Yes Documenting Scribe: Laura Grijalva Provider For Whom Lizette is Documenting (Include Credential): Dr. Polo Dejesus MD Scribe Attestation: ILaura, scribed for Dr. Polo Dejesus MD on 01/23/19 at 1841. Scribe Documentation Reviewed: Yes Provider Attestation: The documentation as recorded by the Laura flores accurately reflects the service I personally performed and the decisions made by me, Dr. Polo Dejesus MD Status of Scribcarroll Document: Viewed
[2019-01-22 09:52] LABS: ABS Eosinophils 0.1 10^3/ul (0-0.6); ABS Lymphocytes 1.1 10^3/ul (1.0-4.8); ABS Monocytes 0.6 10^3/ul (0-0.8); ABS Neutrophils 6.5 10^3/ul (1.5-7.7); Eosinophil % 0.9 %; Hematocrit 38 % (35-47); Hemoglobin 12.6 g/dL (12.0-16.0); Lymphocyte % 13.2 %; Mean Corpuscular HGB Conc 33 g/dL (31-36); Mean Corpuscular Hemoglobin 31 pg (27-31); Mean Corpuscular Volume 94 fL (80-97); Mean Platelet Volume 8.4 fL (7.4-10.4); Platelet Count 183 10^3/uL (150-450); Red Blood Count 4.04 10^6 /uL (3.70-4.87); Red Cell Distribution Width 14 % (10-15); White Blood Count 8.3 10^3/uL (3.5-10.8)
[2019-01-22 09:56] LABS: INR 1.03 (0.82-1.09)
[2019-01-22 10:15] LABS: ALT 21 U/L (7-52); AST 19 U/L (13-39); Albumin 4.4 g/dL (3.2-5.2); Albumin/Globulin Ratio 1.6 (1-3); Alkaline Phosphatase 44 U/L (34-104); Anion Gap 8 mmol/L (2-11); BUN/Creatinine Ratio 22.5 (8-20); Blood Urea Nitrogen 16 mg/dL (6-24); CO2 Carbon Dioxide 26 mmol/L (22-32); Calcium 9.5 mg/dL (8.6-10.3); Chloride 104 mmol/L (101-111); Creatine Kinase 130 U/L (10-223); EGFR African American 99.4 (>60); EGFR Non-African American 82.1 (>60); Globulin 2.7 g/dL (2-4); Glucose 105 mg/dL (70-100); Magnesium 2.1 mg/dL (1.9-2.7); Potassium 4.1 mmol/L (3.5-5.0); Sodium 138 mmol/L (135-145); Total Protein 7.1 g/dL (6.4-8.9)
[2019-01-22 10:17] LABS: Troponin I 0.05 ng/mL (<0.03)
[2019-01-22 10:21] LABS: CKMB ng/mL 4.4 ng/mL (0.6-6.3)
[2019-01-22] MEDS ORDERED: Aspirin 81 mg CHEW TAB* 81 MG TAB.CHEW PO ONE (10:23)
[2019-01-22] MEDS: Metoprolol Tartrate TAB* 25 MG PO ONE ×2 (10:54→11:00)
[2019-01-22] MEDS: Nitro 2% OINT* (Nitroglycerin) 1 INCH/PAK PAK TOPICAL ONE ×2 (10:54→11:00)
[2019-01-22] MEDS ORDERED: Acetaminophen TAB* 325 MG PO PRN (13:16)
[2019-01-22] MEDS ORDERED: Fluticasone NASAL SPRAY 50MCG* 16 gm SPRAY BTL BOTH NARES PRN (13:21)
[2019-01-22 15:18] LABS: C Reactive Protein 7.44 mg/L (<8.01)
[2019-01-22] MEDS: Heparin VIAL(*) 5000 UNITS/ML VIAL (FIVE THOUSAND) SUBCUT SCH ×2 (15:27→20:54)
--- NOTE | 2019-01-22 16:04 | HP ---
CC: Aziza Norton MD; Wesley Fernandez MD * HISTORY AND PHYSICAL: DATE OF ADMISSION: 01/22/19 PRIMARY CARE PROVIDER: Aziza Norton MD OTHER PROVIDER: Wesley Fernandez MD ATTENDING PHYSICIAN: Dr. Argelia Howard * (dictated by AMANDA Pride) CHIEF COMPLAINT: Chest pain. HISTORY OF PRESENT ILLNESS: Ms. Martinez is a 68-year-old female with past medical history of hypertension, hyperlipidemia, chronotropic insufficiency, status post permanent pacemaker implantation, who presented to the ER today with complaints of chest pain. It is important to note that the patient was diagnosed with symptomatic chronotropic insufficiency and underwent pacemaker placement on 01/20/19. She notes that last night she had neck pain which resolved overnight. She then woke, went about her daily activities and started cleaning up dog papers. She notes that she bent, grabbed dog papers and started walking and then developed sharp pains under the left breast around 7:30 this morning. She had associated shortness of breath without diaphoresis. She continued to have this pain for approximately 5 minutes but then it resolved when she eventually found comfortable position, standing and leaning backwards. The patient notes that the sharp pain returns with walking or leaning forward and sometimes with other movements. She denies congestion or recent cough, although she had a coughing spell last night. She has been compliant with her left arm restrictions advised after pacemaker placement. She denies dizziness, lightheadedness, vision changes, or palpitations. In the ER, the patient received a full workup. CBC was within normal limits. CMP was without gross abnormality. The patient had a troponin of 0.05 which then trended down to 0.01. Chest x-ray is negative for cardiopulmonary disease. EKG is paced. There are T-wave inversions in aVL that are not new. There are no ST changes. The patient was given aspirin 324 mg, metoprolol 12.5 mg, nitro 0.5 sublingual. The hospitalist team was asked to evaluate the patient for admission. PAST MEDICAL HISTORY: 1. Hypertension. 2. Hyperlipidemia. 3. Chronotropic insufficiency, status post permanent pacemaker, 01/20/19. 4. COPD/asthma. 5. GERD. 6. Obesity. 7. History of tobacco abuse, 42-pack year. 8. Microscopic colitis. PAST SURGICAL HISTORY: Right total knee replacement, left knee arthroscopy. HOME MEDICATIONS: 1. Acetaminophen 1300 mg p.o. b.i.d. p.r.n. pain. 2. Aspirin 81 mg p.o. daily. 3. Atorvastatin 80 mg p.o. daily. 4. Budesonide cap 9 mg p.o. daily. 5. Calcium carbonate 500 to 1000 mg p.o. q.3 hours p.r.n. indigestion. 6. Calcium 600 plus vitamin D tab 1 tab p.o. daily. 7. Cetirizine 10 mg p.o. daily. 8. Cholecalciferol daily. 9. Diclofenac sodium topical application b.i.d. 10. Escitalopram 5 mg p.o. daily. 11. Famotidine 40 mg p.o. at bedtime. 12. Advair HFA inhaler 2 puffs inhalation b.i.d. 13. Fluticasone nasal spray 1 spray to both nares b.i.d. p.r.n. 14. Hydrocortisone valerate 1 application topically b.i.d. 15. Ketoconazole 2% cream 1 application topically b.i.d. 16. Lisinopril 10 mg p.o. daily. 17. Multivitamins/minerals 1 tab p.o. daily. 18. Omeprazole 40 mg p.o. daily. 19. Vitamin E 1000 units p.o. daily. DRUG ALLERGIES: LATEX, rash, itching; PERFUMES, difficulty breathing; TOBRAMYCIN, itching; unknown; NSAIDs, GI upset; environmental, shortness of breath/wheeze. FAMILY HISTORY: Mother at the age of 79 from a "massive MD." She also had history of CVA, thyroid disease, diabetes mellitus. Father at the age of 82, unknown cause. The patient is unsure about any medical history for her grandparents. She had a sister with breast cancer. SOCIAL HISTORY: She quit smoking in July 2016, prior to that she smoked 1 pack per day for approximately 42 years. She quit drinking alcohol 15 years ago. She is retired from [employer]. She is . She has 2 daughters. She declines to appoint a surrogate decision maker at this time and would like to consider this at a future date. REVIEW OF SYSTEMS: A 14-point review of systems has been performed and all the pertinent positives and negatives are in the HPI. All other systems are negative. PHYSICAL EXAMINATION GENERAL: Ms. Martinez is a obese, white woman who is sitting up in bed. She appears older than her stated age. She appears comfortable and in no acute distress. She is pleasant and cooperative. VITAL SIGNS: Temperature 97.9 temporal, heart rate 66, respiratory rate 18, oxygen saturation 98% on room air, blood pressure 156/56. HEENT: Left pupil greater than right, reactive to light bilaterally. EOMI. Nonicteric sclerae. Hearing is grossly intact. Oral mucosa membranes are moist. There are no lesions. The pharynx is clear. Tongue is at midline. Palate elevates symmetrically. PULMONARY: Symmetrical chest expansion without use of accessory muscles. Clear to auscultation bilaterally without rhonchi, wheeze, rales. No digital clubbing or cyanosis. CARDIOVASCULAR: Regular rate and rhythm with S1, S2 present without murmurs, rubs, clicks, or gallops. There is no JVD. There is no peripheral edema. Tenderness to palpation on the left side lateral to the lower sternum. Nontender elsewhere in anterior chest. ABDOMEN: Obese. Bowel sounds in all quadrants. Soft, nontender to palpation. MUSCULOSKELETAL: Right upper extremity, bilateral lower extremities with full range of motion without pain or deformities. There is a left anterior pacemaker in place. Left upper extremity with activity restrictions and therefore not tested. NEUROLOGIC: The patient is awake. She is alert and oriented x3. Cranial nerves are grossly intact. Pupils are unequal but are round and reactive to light. Muscle strength in bilateral lower extremities is 5/5, right upper extremity is 5/5, left upper extremity not tested due to activity restrictions. DIAGNOSTIC STUDIES/LAB DATA: CBC, CMP unremarkable. Troponin 0.05, 0.01. CRP pending. BNP 52. Chest x-ray, impression: No active cardiopulmonary disease. EKG: Rate 61, AV dual paced, no apparent ST depression or elevation, T-wave inversion in aVL which is unchanged from recent EKGs this year. ASSESSMENT AND PLAN: Ms. Martinez is a 68-year-old female with a past medical history of recent pacemaker placement due to chronotropic insufficiency/sick sinus syndrome, hypertension, hyperlipidemia, obesity and [id number] tobacco history, who presented to the ER today with complaints of chest pain that is both positional and exertional. She will be admitted for: 1. Chest pain, rule out ACS. The patient complains of chest pain since this morning when she was bending forward and walking. Chest pain appears to be positional and exertional, although there is some pleuritic nature to it as it is tender to palpation. Initial troponin was 0.05, subsequent troponin was 0.01. We will continue to trend troponins. This case was discussed with Dr. Fernandez, who performed permanent pacemaker insertion on 01/20/19 and he recommends transthoracic echo and stress testing, both of which have been ordered. We will repeat EKG in the morning. In the ER, the patient was given aspirin 324 mg, metoprolol 12.5 mg, nitro 0.5 topical ointment. She will be continued on aspirin 81 mg daily. Lipid panel and hemoglobin A1c will be added on. In the meantime, she will continue her home dose of atorvastatin 80. 2. Chronotropic insufficiency, status post permanent pacemaker insertion on . Continue restrictions per Cardiology as follows; do not soak device, continue arm immobilizer at bedtime, do not lift greater than 5 to 10 pounds or lift arm above the shoulder or reach behind. 3. Hypertension. Continue lisinopril. 4. Hyperlipidemia. Continue atorvastatin. 5. COPD/asthma. Continue cetirizine and Advair. 6. GERD. Continue omeprazole. 7. Depression. Continue escitalopram 5. 9. Microscopic colitis. Continue budesonide. 10. DVT prophylaxis: According to DVT Risk Assessment, the patient scores 3, placing her at high risk. She will be started on heparin subcu. 6. Code status: Full code. TIME SPENT: Approximately 60 minutes was spent on this admission, greater than half that time was spent [id number] with the patient obtaining history, performing physical, and reviewing the plan of care. The case has been reviewed with my attending, Dr. Howard, who is in agreement with the plan of care. LILI ESPANA, AMANDA [id number]/[facility] #: [id number] ANNE
--- NOTE | 2019-01-22 16:23 | ECHO ---
*[facility]* [place] [address] Fax #: [phone] Transthoracic Echocardiogram Patient: Vi Martinez : 1950 Study Date: 01/22/2019 Age: 68 Gender: F HR: 65 bpm Height: 60 in /152.4 cm BSA: 1.87 m^2 Weight: 199.6 lb /90.7 kg BMI: 39.1 kg/m^2 *Contract Attorney: * Kavitha Cortez RD *Referring Physician: * Gladys MirelesReading Physician: * Caty Johnson MD Indications: Chest Pain, unspecified. S/p recent pacemaker implantation. History: Chronic obstructive pulmonary disease. Risk factors: Former tobacco use (cigarettes). Hypertension. Dyslipidemia. Labs, prior tests, procedures, and surgery: Permanent pacemaker system implantation (01/20/2019). Conclusions Summary: - Left ventricle: The cavity size is below normal. Wall thickness is mildly increased. Systolic function is normal. The estimated ejection fraction is 55-60%. Doppler parameters are consistent with abnormal left ventricular relaxation (grade 1 diastolic dysfunction). - Right ventricle: Systolic function is normal. - Ventricular septum: There is abnormal interventricular septal wall motion consistent with an RV pacemaker. - Mitral valve: There is trace regurgitation. - Aortic valve: There is trace regurgitation. - Tricuspid valve: There is trace regurgitation. - Pericardium, extracardiac: There is no significant pericardial effusion. - Compared with prior echocardiogram of 05/17/18, stable. Study data: Transthoracic echocardiogram. Procedure: Transthoracic echocardiography was performed. Image quality was fair. The study was technically limited due to body habitus. Complete 2D, spectral Doppler, and color flow Doppler. Location: Bedside. Patient status: Inpatient. Patient room number: 446-1. Rhythm: Paced rhythm. Findings Left ventricle: The cavity size is below normal. Wall thickness is mildly increased. Systolic function is normal. The estimated ejection fraction is 55-60%. Wall motion is normal; there are no regional wall motion abnormalities. Doppler parameters are consistent with abnormal left ventricular relaxation (grade 1 diastolic dysfunction). Right ventricle: Not well visualized. The cavity size is moderately dilated. Pacer wire noted in the right ventricle. Systolic function is normal. Ventricular septum: There is abnormal interventricular septal wall motion consistent with an RV pacemaker. Left atrium: The atrium is normal in size. Right atrium: The atrium is normal in size. Pacer wire noted in right atrium. Mitral valve: The leaflets are mildly thickened. There is no evidence of stenosis. There is trace regurgitation. Aortic valve: The valve is trileaflet. The leaflets are mildly thickened. There is no evidence of stenosis. There is trace regurgitation. Tricuspid valve: Not well visualized. There is no evidence of stenosis. There is trace regurgitation. Pulmonic valve: The leaflets are normal thickness. There is no evidence of stenosis. There is trace regurgitation. Aorta: Aortic root: The aortic root is appears normal. Ascending aorta: The ascending aorta is upper normal in size. Aortic arch: The aortic arch is appears normal. Pericardium: A prominent pericardial fat pad is present. There is no significant pericardial effusion. Pulmonary arteries: The main pulmonary artery is normal-sized. Systolic pressure can not be accurately estimated. Systemic veins: Inferior vena cava: The vessel is normal in size. There is (>= 50%) respiratory change in the IVC dimension. Measurements Left ventricle Value Ref Right atrium continued Value Ref SUZIE, LAX (L) 3.4 cm 3.8 - 5.2 SI dim, ES, A4C 4.7 cm 3.4 - 5.3 ESD, LAX (L) 2.1 cm 2.2 - 3.5 Estimated RAP 3 mm Hg --------- FS, LAX 38 % 27 - 45 PW, ED, LAX (H) 1.2 cm 0.6 - 0.9 Aortic valve Value Ref FS 38 % 27 - 45 Tate diam, ED 2.2 cm --------- PW, ED (H) 1.2 cm 0.6 - 0.9 Peak v, S 1.5 m/sec --------- E', lat tate, TDI 11.6 cm/sec >=10.0 VTI, S 28.4 cm - -------- E/e', lat tate, 4 Mean grad, S 4.0 mm Hg ---- ----- TDI Peak grad, S 9.0 mm Hg --------- E', med tate, TDI (L) 6.4 cm/sec >=7.0 LVOT/AV, VTI ratio 0.81 - -------- E/e', med tate, 7 TDI Mitral valve Value Ref E', avg, TDI 9.0 cm/sec Peak E 0.44 m/sec ---- ----- E/e', avg, TDI 5 <=14 Peak A 0.78 m/sec - -------- Decel time 306 ms --------- LVOT Value Ref Peak E/A ratio 0.6 --------- Peak claudia, S 1.13 m/sec VTI, S 23.0 cm Pulmonic valve Value Ref Peak grad, S 5 mm Hg Peak v, S 1.04 m/sec --------- Mean grad, S 3 mm Hg Peak grad, S 4.0 mm Hg --------- Ventricular septum Value Ref Aortic root Value Ref IVS, ED (H) 1.3 cm 0.6 - 0.9 Root diam 3.0 cm <4.0 Right ventricle Value Ref Ascending aorta Value Ref SUZIE, LAX 3.2 cm AAo AP diam, S 3.6 cm --------- SUZIE minor ax, (H) 4.4 cm 1.9 - 3.5 AAo AP diam/bsa, S 1.9 cm/m^2 --------- A4C mid Aortic arch Value Ref Left atrium Value Ref Arch diam 1.9 cm --------- AP dim, ES 3.60 cm 2.70 - 3.80 Decending aorta Value Ref ML dim, A4C 4.7 cm Sherry peak clauida 0.91 m/sec --------- SI dim, A4C 4.4 cm Vol/bsa, ES, 1-p 26 ml/m^2 11 - 40 Inferior vena cava Value Ref A4C Diam 1.5 cm --------- Vol/bsa, ES, A/L 33 ml/m^2 16 - 34 Right atrium Value Ref SI dim, ES 4.7 cm 3.4 - 5.3 ML dim, ES, A4C 3.9 cm 2.6 - 4.4 Legend: (L) and (H) yesica values outside specified reference range. Prepared and electronically signed by Caty Johnson MD 01/22/2019 16:23
[2019-01-22] MEDS: Mometasone/Formoter 200/5 MDI INH SCH (20:09)
[2019-01-22] MEDS: Famotidine TAB* 20 MG PO SCH (20:54)
--- NOTE | 2019-01-22 21:22 | CONS ---
CC: Dr. Fernandez; AMANDA Gleason; Dr. Stevens; Dr. Aziza Norton CARDIOLOGY CONSULT: DATE OF CONSULT: 01/22/19 REASON FOR CONSULT: Chest pain, recent pacemaker implantation. CHIEF COMPLAINT: Left-sided chest pain, left upper quadrant pain. HISTORY OF PRESENT ILLNESS: Vi Martinez is a very nice 68-year-old woman who underwent pacemaker implantation on 01/20/19 for sick sinus syndrome ( [employer] device). 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 The ER note document some variation of this. She tried to call our office, but was told that we are off with the holiday so she presented to the emergency room. Currently, the patient still has positional discomfort, but states that it is much better than it was this morning and she was not having it at the time I saw her. She denies a pleuritic quality to it. The position seems to do with how tight her binder is, moving her arms as opposed to lying down flat or sitting up, but does not seem to be per se exertional component. PAST MEDICAL HISTORY: The patient has a past medical history of: 1. Sick sinus syndrome. 2. Chronotropic incompetence, status post dual-chamber pacemaker implantation on 01/20/19 (Medtronic). 3. Hypertension. 4. Dyslipidemia. 5. Reflux. 6. COPD. 7. Colitis. 8. Depression. 9. Chest pain with negative cardiac workup felt to be costochondritis. 10. Bursitis. PAST SURGICAL HISTORY: Includes a recent pacemaker, section, tonsillectomy, right knee surgery. MEDICATIONS: Outpatient medications on 01/21/19 included: 1. Tylenol p.r.n. 2. Keflex 250 mg t.i.d. 3. Ventolin inhaler. 4. Fluticasone propionate. 5. Atorvastatin 80 mg a day. 6. Budesonide 9 mg a day. 7. Omeprazole 40 mg a day. 8. Zyrtec 10 mg a day. 9. Lisinopril 10 mg a day. 10. Citalopram 5 mg a day. 11. Aspirin 81 mg a day. 12. Advair p.r.n. ALLERGIES: LATEX, PERFUME, TOBRAMYCIN, NONSTEROIDALS, ENVIRONMENTAL ALLERGIES. FAMILY HISTORY: Positive for heart disease, diabetes, cardiomyopathy, breast cancer. SOCIAL HISTORY: The patient is , lives independently. She has 2 granddaughters age 10 and 13 that she lives with. Former smoker, stopped in 2018. No alcohol or recreational drug use. REVIEW OF SYSTEMS: Negative for any change in bowel or bladder habits, nausea, orthopnea, PND, or any other. All other 14-point review of systems was negative including fevers, chills, sweats, hematuria, dysuria, or coughing. PHYSICAL EXAMINATION: Vital Signs: On arrival to the ER, blood pressure 125/51 , pulse reported at 42 later at 60, and she was afebrile, oxygen saturation 98% . General Appearance: Overweight, somewhat older woman, appearing older than her stated age. Appears comfortable, in no acute distress. Psychologically, pleasant and cooperative. Neurologically, awake, alert, oriented to person, place, and time. Cranial nerves II through XII intact. Grossly normal sensory and motor function on chair and bed exam. Skin: Warm, dry. No cyanosis or rashes. Pacemaker insertion in the subclavian fossa without evidence of infection, ecchymosis, or hematoma. HEENT: Mucous membranes are moist. Neck: Without increased JVP. Breath sounds clear with good effort. No wheezes, rales, or rhonchi. Coronary: S1, S2 regular, without rubs or murmurs. Abdomen : Overweight, nondistended, soft, nontender. No epigastric discomfort. I could not reproduce the pain palpating and no diaphragmatic pacing appreciated. Lower extremities are free of edema and warm. DIAGNOSTIC STUDIES/LABORATORY DATA: Chest x-ray done today was interpreted as no active disease. Lead placement appears good when compared with her chest x- ray on 12/20/18, penetrations are a bit different and position of the chest is a bit different, but not grossly different. Labs from today, white count 8.3, hemoglobin 38, platelets 183. INR 1.03. Sodium 138, potassium 4.3, bicarb 26, BUN 16, creatinine 0.71, glucose 105. Hemoglobin A1c 5.7. Normal transaminases. Troponin #1 0.05, #2 0.01, #3 0.01. CRP 7.44. Echocardiogram done today showed no evidence of pericardial effusion, ejection fraction of 55% to 60%. Normal RV systolic function, trace valvular insufficiency, overall stable from prior. EKG today in the ED showed dual-chamber pacing. Ventricular pacing appears unipolar and when compared with her EKG on 01/21/19, the unipolar pacing is new and QRS is different, there may be effusion based on her negative QRS. Again, the unipolar pacing is new. IMPRESSION: In summary, Vi Martinez is a 68-year-old woman who underwent dual- chamber pacemaker implantation on 01/20/19, for sick sinus syndrome, discharged yesterday. This morning, had symptoms of heavy pounding heartbeat. Chest and abdominal pain that is new, EKG that is suggestive of unipolar ventricular pacing. No evidence of diaphragmatic pacing on exam at the time I saw her. The differential here will be diaphragmatic pacing, intermittent based on position, the lead could have moved (microdislodgement). If she changed from bipolar ventricular pacing to unipolar ventricular pacing, she may feel her ventricular pacing, but I am not sure what the triggor for this could be. I do not see evidence of any pericardial effusion, which is reassuring or evidence of inflammation and we do not need to worry about any pericardial process. As [employer] rep will be in the morning to interrogate another device, we will have him interrogate hers at the same time. The elevated initial troponin may be false positive. I am having it re-run as the next two are completely normal and it seems like an unusual pattern though we are planning to do a stress test. Because she had coffee this morning, she had the rest portion today. We will plan on getting the stress portion in or outpatient Sunday or next week depending on her clinical course. On the exam with the binder on, the binder was very, very tight and uncomfortable, so I loosened it and we are going to try to fashion something while she is in the hospital that does not bind so tightly in case this is contributing to some of her abdominal discomfort and try to find a solution as an outpatient as well. Additional recommendations will be made pending the findings on pacer interrogation and her clinical course. I advised her to avoid bending over for the next several days and we may need to get discharge planners to assist as she may need more than her 10- and 13- year-old granddaughters to assist her without the use of the left arm for the next few days. [id number]/[facility] #: [id number] ANNE
[2019-01-23] MEDS: Heparin VIAL(*) 5000 UNITS/ML VIAL (FIVE THOUSAND) SUBCUT SCH ×3 (05:22→21:30)
[2019-01-23 06:59] LABS: HDL Cholesterol 40.4 mg/dL
[2019-01-23] MEDS: Mometasone/Formoter 200/5 MDI INH SCH ×2 (07:31→19:26)
[2019-01-23] MEDS: Aspirin EC TAB* 81 MG TAB.EC PO SCH (08:33)
[2019-01-23] MEDS: Lisinopril TAB* 10 MG PO SCH (08:33)
[2019-01-23] MEDS: Pantoprazole TAB * 40 MG TAB PO SCH (08:33)
[2019-01-23] MEDS: Atorvastatin* 80 MG TAB PO SCH (08:33)
[2019-01-23] MEDS: Escitalopram * 5 MG TAB PO SCH (08:33)
[2019-01-23] MEDS: CMCS:Budesonide CAP(NF) 3 MG PO SCH (08:33)
[2019-01-23] MEDS ORDERED: NS 0.9% 100 ML* 100 ML with ceFAZolin VIAL(*) 2 GM IVPB ONE ×2 (12:00)
--- NOTE | 2019-01-23 14:29 | PN ---
Subjective Date of Service: 01/23/19 Interval History: Patient seen and examined. States she is more comfortable since PM tech adjusted her device. No longer has sharp pains from dislodged wire. No SOB, no fever or chills, no further complaints. Dr. Fernandez in to see patient. Objective Active Medications: Acetaminophen (Tylenol Tab*) 650 mg PO Q4H PRN PRN Reason: mild to moderate pain Last Admin: 01/22/19 23:59 Dose: 650 mg Aspirin (Aspirin Ec Tab*) 81 mg PO QAM [facility] Last Admin: 01/23/19 08:33 Dose: 81 mg Atorvastatin Calcium (Lipitor*) 80 mg PO DAILY [facility] Last Admin: 01/23/19 08:33 Dose: 80 mg Budesonide (Budes[facility]ide Cap(Nf)) [facility] Protocol Last Admin: 01/23/19 08:33 Dose: 9 mg Cefazolin Sodium/Dextrose (Kefzol Syringe 1 Gm/10 Ml Flush Syringe(*)) 1 gm FLUSH ONCE ONE Stop: 01/24/19 13:01 Diazepam (Valium Tab(*)) 5 mg PO ONCE ONE Stop: 01/24/19 13:01 Escitalopram Oxalate (Lexapro *) [facility] [place]; Protocol Last Admin: 01/23/19 08:33 Dose: 5 mg Famotidine (Pepcid Tab*) 40 mg PO BEDTIME [facility] Last Admin: 01/22/19 20:54 Dose: 40 mg Fluticasone Propionate (Flonase Nasal [place] 50mcg*) 1 spray BOTH NARES BID PRN PRN Reason: CONGESTION Heparin Sodium (Porcine) (Heparin Vial(*)) 5,000 units SUBCUT Q8HR [facility] Last Admin: 01/23/19 12:52 Dose: 5,000 units Sodium Chloride (Ns 0.9% 1000 Ml) 1,000 mls @ 75 mls/hr IV PER RATE [facility] Cefazolin Sodium 2 gm/ Sodium (Chloride) 100 mls @ 200 mls/hr IVPB ONCE ONE Stop: 01/24/19 13:29 Lisinopril (Prinivil Tab*) 10 mg PO QAM [facility] Last Admin: 01/23/19 08:33 Dose: 10 mg Mometasone Furoate/Formoterol Fumar (Dulera 200/5 Mdi*) 2 puff INH RT.BID BRISEYDA; Protocol Last Admin: 01/23/19 07:31 Dose: 2 puff Pantoprazole Sodium (Protonix Tab*) 40 mg PO DAILY [facility] Last Admin: 01/23/19 08:33 Dose: 40 mg Vital Signs - 8 hr 01/23/19 01/23/19 01/23/19 07:15 07:33 11:00 Temperature 97.7 F 97.7 F Pulse Rate 59 62 60 Respiratory 16 14 18 Rate Blood Pressure 136/48 122/43 (mmHg) O2 Sat by Pulse 95 95 95 Oximetry Oxygen Devices in Use Now: None Appearance: alert, NAD Eyes: PERRLA Ears/Nose/Mouth/Throat: Mucous Membranes Moist Neck: NL Appearance and Movements; NL JVP Respiratory: Symmetrical Chest Expansion and Respiratory Effort, Clear to Auscultation, - - left chest dressing CDI, tender around site Cardiovascular: NL Sounds; No Murmurs; No JVD, RRR, No Edema Abdominal: NL Sounds; No Tenderness; No Distention Extremities: No Edema, No Clubbing, Cyanosis, - - left arm sling in place, NV intact, good cap refill Neurological: Alert and Oriented x 3, NL Gait Nutrition: Taking PO's Result Diagrams: 01/22/19 09:40 01/22/19 09:40 Assess/Plan/Problems-Billing Assessment: This is a 68 year old female with a history of symptomatic bradycardia and recent AV Pacemaker insertion on 12/20/18 that presented to the ED with sharp left sided chest pain. - Patient Problems (1) Pacemaker lead malfunction Code(s): T82.110A - BREAKDOWN (MECHANICAL) OF CARDIAC ELECTRODE, INIT ENCNTR SNOMED Code(s): 012531145 Comment: - Discussed case with Dr. Fernandez, atrial wire is in good placement but ventricular wire has dislodged - PM rep has adjusted configuration to minimize discomfort to patient - Plan to revise wire placement tomorrow afternoon with Dr. Fernandez - NPO after midnight, may have light breakfast early am (2) HTN (hypertension) Code(s): I10 - ESSENTIAL (PRIMARY) HYPERTENSION SNOMED Code(s): 55712995 Comment: - Continue lisinopril (3) Hyperlipemia Code(s): E78.5 - HYPERLIPIDEMIA, UNSPECIFIED SNOMED Code(s): 92074170 Comment: - Continue statin (4) DVT prophylaxis Code(s): Z29.9 - ENCOUNTER FOR PROPHYLACTIC MEASURES, UNSPECIFIED SNOMED Code( s): 651138645 Comment: - HSQ, hold tonight before procedure (5) Full code status Code(s): Z78.9 - OTHER SPECIFIED HEALTH STATUS SNOMED Code(s): 433136605 Status and Disposition: Inpatient, plan for DC morning after pacemaker revision.
[2019-01-23] MEDS: Famotidine TAB* 20 MG PO SCH (21:30)
[2019-01-24] MEDS ORDERED: NS 0.9% 1000 ML** 1,000 ML IV SCH (00:01)
[2019-01-24] MEDS: Heparin VIAL(*) 5000 UNITS/ML VIAL (FIVE THOUSAND) SUBCUT SCH ×3 (04:58→22:34)
[2019-01-24] MEDS: Mometasone/Formoter 200/5 MDI INH SCH ×2 (07:16→19:25)
[2019-01-24] MEDS: Aspirin EC TAB* 81 MG TAB.EC PO SCH (08:36)
[2019-01-24] MEDS: Lisinopril TAB* 10 MG PO SCH (08:36)
[2019-01-24] MEDS: Escitalopram * 5 MG TAB PO SCH (08:36)
[2019-01-24] MEDS: Pantoprazole TAB * 40 MG TAB PO SCH (08:36)
[2019-01-24] MEDS: CMCS:Budesonide CAP(NF) 3 MG PO SCH (08:36)
[2019-01-24] MEDS: Atorvastatin* 80 MG TAB PO SCH (08:36)
[2019-01-24] MEDS ORDERED: Midazolam* 1 MG/ML 5 ML VIAL (5 MG) ONE (12:39)
[2019-01-24] MEDS ORDERED: Lidocaine 1% INJ* 10 MG/ML 30 ML SDV ONE (12:39)
[2019-01-24] MEDS ORDERED: fentaNYL* 50 MCG/ML 2 ML VIAL (100 MCG VIAL) ONE (12:39)
[2019-01-24] MEDS ORDERED: Diazepam TAB(*) 5 MG PO ONE (13:00)
[2019-01-24] MEDS ORDERED: ceFAZolin 2 GM in NS 100 ml - ONCE (Pharmacy Admix) IVPB ONE (13:00)
[2019-01-24] MEDS ORDERED: ceFAZolin 1 GM/10 ML flush(*) SYRINGE for pocket flush (cardiology) FLUSH ONE (13:00)
[2019-01-24] MEDS: ceFAZolin 1 GM ADVAN(*) 1 GM in NS 0.9% 50 ML* 50 ML IVPB SCH ×2 (16:29→21:59)
--- NOTE | 2019-01-24 17:02 | PN ---
Subjective Date of Service: 01/24/19 Interval History: Patient seen and examined. Remains comfortable, no pain since Medtronic adjustment in PM wire. Pending revision today with Dr. Fernandez. Denies fever or chills, no SOB, no chest pain. Objective Active Medications: Acetaminophen (Tylenol Tab*) 650 mg PO Q4H PRN PRN Reason: mild to moderate pain Last Admin: 01/22/19 23:59 Dose: 650 mg Aspirin (Aspirin Ec Tab*) 81 mg PO QAM [facility] Last Admin: 01/24/19 08:36 Dose: 81 mg Atorvastatin Calcium (Lipitor*) 80 mg PO DAILY [facility] Last Admin: 01/24/19 08:36 Dose: 80 mg Budesonide (Budesonide Cap(Nf)) 9 mg PO QAM [facility]; Protocol Last Admin: 01/24/19 08:36 Dose: 9 mg Escitalopram Oxalate (Lexapro *) 5 mg PO QAM [facility]; Protocol Last Admin: 01/24/19 08:36 Dose: 5 mg Famotidine (Pepcid Tab*) 40 mg PO BEDTIME [facility] Last Admin: 01/23/19 21:30 Dose: 40 mg Fluticasone Propionate (Flonase Nasal [place] 50mcg*) 1 spray BOTH NARES BID PRN PRN Reason: CONGESTION Heparin Sodium (Porcine) (Heparin Vial(*)) 5,000 units SUBCUT Q8HR [facility] Last Admin: 01/24/19 16:35 Dose: Not Given Sodium Chloride (Ns 0.9% 1000 Ml) 1,000 mls @ 75 mls/hr IV PER RATE [facility] Cefazolin Sodium 1 gm/ Sodium (Chloride) 50 mls @ 200 mls/hr IVPB Q8H [facility] Stop: 01/25/19 07:14 Last Admin: 01/24/19 16:29 Dose: 200 mls/hr Lisinopril (Prinivil Tab*) 10 mg PO QAM [facility] Last Admin: 01/24/19 08:36 Dose: 10 mg Mometasone Furoate/Formoterol Fumar (Dulera 200/5 Mdi*) 2 puff INH RT.BID [facility]; Protocol Last Admin: 01/24/19 07:16 Dose: 2 puff Oxycodone/Acetaminophen (Percocet 5/325 Tab*) 1 tab PO Q4H PRN PRN Reason: PAIN - MODERATE Pantoprazole Sodium (Protonix Tab*) 40 mg PO DAILY [facility] Last Admin: 01/24/19 08:36 Dose: 40 mg Vital Signs - 8 hr 01/24/19 01/24/19 01/24/19 11:00 12:36 14:36 Temperature 97.9 F 97.3 F Pulse Rate 59 59 Respiratory 16 16 16 Rate Blood Pressure 118/45 107/48 (mmHg) O2 Sat by Pulse 98 97 Oximetry Oxygen Devices in Use Now: None Appearance: alert, NAD Eyes: No Scleral Icterus, PERRLA Ears/Nose/Mouth/Throat: Mucous Membranes Moist Neck: NL Appearance and Movements; NL JVP Respiratory: Symmetrical Chest Expansion and Respiratory Effort, Clear to Auscultation Cardiovascular: NL Sounds; No Murmurs; No JVD, RRR, - - atrial paced Extremities: No Edema, No Clubbing, Cyanosis Skin: No Rash or Ulcers Neurological: Alert and Oriented x 3, NL Gait Nutrition: - - NPO for procedure Result Diagrams: 01/22/19 09:40 01/22/19 09:40 Assess/Plan/Problems-Billing Assessment: This is a 68 year old female with a history of symptomatic bradycardia and recent AV Pacemaker insertion on 12/20/18 that presented to the ED with sharp left sided chest pain. - Patient Problems (1) Pacemaker lead malfunction Code(s): T82.110A - BREAKDOWN (MECHANICAL) OF CARDIAC ELECTRODE, INIT ENCNTR SNOMED Code(s): 555544119 Comment: - Discussed case with Dr. Fernandez, atrial wire is in good placement but ventricular wire has dislodged - PM rep adjusted configuration at admission to minimize discomfort to patient - Dr. Fernandez revised pacemaker wire today successfully - Continue arm precautions - Plan for DC in AM (2) HTN (hypertension) Code(s): I10 - ESSENTIAL (PRIMARY) HYPERTENSION SNOMED Code(s): 49281805 Comment: - Continue lisinopril (3) Hyperlipemia Code(s): E78.5 - HYPERLIPIDEMIA, UNSPECIFIED SNOMED Code(s): 08279593 Comment: - Continue statin (4) DVT prophylaxis Code(s): Z29.9 - ENCOUNTER FOR PROPHYLACTIC MEASURES, UNSPECIFIED SNOMED Code( s): 542766304 Comment: - HSQ, hold tonight before procedure (5) Full code status Code(s): Z78.9 - OTHER SPECIFIED HEALTH STATUS SNOMED Code(s): 873850403 Status and Disposition: Inpatient, plan for DC tomorrow.
--- NOTE | 2019-01-24 20:14 | OP ---
CC: Dr. Stevens * DATE OF OPERATION: 01/24/19 - ROOM #446 DATE OF : 52 SURGEON: Wesley Fernandez MD ANESTHESIA: Local anesthesia with conscious sedation. PRE-OP DIAGNOSES: Dual-chamber pacemaker implantation, right ventricular lead dislodgement. POST-OP DIAGNOSES: Dual-chamber pacemaker implantation, right ventricular lead dislodgement. OPERATIVE PROCEDURE: Right ventricular lead revision. ESTIMATED BLOOD LOSS: Nil. COMPLICATIONS: None. INDICATIONS: Please see my operative report from 01/20/19, for details of the patient's pacemaker serial numbers and model numbers. The patient underwent a dual-chamber pacemaker implantation on Sunday. She was discharged on Sunday with excellent numbers and a normal chest x-ray. She came back to the hospital on Sunday with some mild chest pain and it was found that she had a right ventricular lead dislodgement. The patient was scheduled for lead revision. DESCRIPTION OF PROCEDURE: The patient was in a fasting state. Informed consent had been obtained prior to the procedure. All labs were reviewed. The patient was placed supine on the procedure table. Her mary lou were removed. The patient's left pectoral area was prepped and draped in the usual fashion. 1 % lidocaine was used for local anesthesia. The previous incision was opened and blunt dissection carried down to the pacemaker pocket. The pacemaker itself was removed from the pocket. The ventricular lead was detached from the pacemaker. The lead was then repositioned into the RV apex. It had an R-wave sensitivity at 9.5, impedance 900 ohms, threshold 1.3 volts at 0.5 msec at initial implantation. At the end of the case, the ventricular lead and threshold was 0.75 volts at 0.4 msec. The ventricular lead was then sutured to the pectoral muscle. It was reattached to the pacemaker. The pocket was flushed with antibiotic infused normal saline. The pacemaker was placed into the pocket. The surgical incision was closed in 3 layers. The patient tolerated the procedure well with no complications. [id number]/[facility] [place] #: [id number] [facility]
[2019-01-24] MEDS: oxyCODONE/Acetamin 5/325 MG* TAB PO PRN (21:54)
[2019-01-24] MEDS: Famotidine TAB* 20 MG PO SCH (21:54)
[2019-01-25] MEDS: oxyCODONE/Acetamin 5/325 MG* TAB PO PRN (04:07)
[2019-01-25] MEDS: Heparin VIAL(*) 5000 UNITS/ML VIAL (FIVE THOUSAND) SUBCUT SCH (05:27)
[2019-01-25 07:42] VITALS: BP 146/40
[2019-01-25] MEDS: Pantoprazole TAB * 40 MG TAB PO SCH (08:05)
[2019-01-25] MEDS: Lisinopril TAB* 10 MG PO SCH (08:05)
[2019-01-25] MEDS: CMCS:Budesonide CAP(NF) 3 MG PO SCH (08:06)
[2019-01-25] MEDS: Atorvastatin* 80 MG TAB PO SCH (08:06)
[2019-01-25] MEDS: Aspirin EC TAB* 81 MG TAB.EC PO SCH (08:06)
[2019-01-25] MEDS: Escitalopram * 5 MG TAB PO SCH (08:06)
[2019-01-25] MEDS: ceFAZolin 1 GM ADVAN(*) 1 GM in NS 0.9% 50 ML* 50 ML IVPB SCH (08:10)
[2019-01-25] MEDS: Mometasone/Formoter 200/5 MDI INH SCH (08:12)
--- NOTE | 2019-01-25 08:59 | PRO ---
DUAL CHAMBER PACEMAKER INTERROGATION REPORT: DATE OF INTERROGATION: 01/25/19 DATE OF IMPLANTATION: 01/20/19 DATE OF RIGHT VENTRICULAR LEAD REVISION: 01/24/19 [employer]tronic device, Tina XT DR MRI [id number], serial number [id number]. FINDINGS: Current rhythm is A paced, V sensed. Underlying rhythm is sinus bradycardia. Pacemaker is set to switch from the AAIR to DDDR mode, lower rate of 60, upper tracking rate of 130 beats per minute. Paced AV interval 180 milliseconds, sensed AV interval 150 milliseconds. Atrial lead pacing is 95.6% , ventricular lead pacing 0.2%. Battery status 3.19 volts, estimated remaining longevity 12.1 years. Atrial threshold 1.1 millivolts, RV threshold 7 millivolts. Atrial lead impedance 608 ohms, ventricular lead impedance 741 ohms , atrial pacing threshold 1 volt at 0.4 milliseconds, ventricular pacing threshold 0.5 volts at 0.4 milliseconds. No significant dysrhythmias noted. IMPRESSION: Normally functioning dual-chamber pacemaker. Please see also chart documentation for further details. [id number]/[facility] #: [id number] [facility]
--- NOTE | 2019-01-25 19:11 | DS ---
CC: Dr. Aziza Norton; Dr. Wesley Fernandez, Cardiology * DISCHARGE SUMMARY: DATE OF ADMISSION: 01/22/19 DATE OF DISCHARGE: 01/25/19 PRIMARY CARE PROVIDER: Dr. Aziza Norton. ATTENDING FOR THIS ADMISSION: Dr. Lui.* (DICTATED BY GREGOR BONILLA NP) HOSPITAL COURSE: Please refer to admitting H and P on 01/22/19, but in short, Ms. Martinez is a 68-year-old female patient who on 01/20/19 had a pacemaker inserted with Dr. Fernandez for symptomatic bradycardia. The patient had an uneventful pacemaker insertion. Her procedure went well. She was discharged to home without issue. 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 She also had some associated shortness of breath. The pain lasted about 5 minutes and then she tried to reposition herself and then noticed that the sharp pain began returning whenever she was walking or moving and with other movements. She came to the emergency department for evaluation because she was concerned that this could be considered chest pain and having just had a pacemaker inserted was worried that there was an issue with her device or that she was having a coronary event. In the emergency department, her EKG did reveal that she was AV dual paced. She did have a T-wave inversion, which was no change from previous EKG. She had an initial troponin that was 0.05 with a repeat that was 0.01. She had some tenderness around the insertion site, but otherwise the rest of her labs and workup was negative. She was given 324 mg of aspirin, given nitroglycerin and metoprolol and was admitted. Initially, the thought process was that the patient would have a stress test in the morning; however, when her pacemaker was interrogated it was noted that her pacemaker wire the ventricular lead was dislodged. The rep from [employer] made adjustments to her device so that she would be an atrial pacing only. Dr. Fernandez was notified. He evaluated the patient and then put the patient in for a revision of her pacemaker wire, which she underwent on 01/24/19. The patient underwent successful revision. The pacemaker was interrogated again on 01/25/19. Repeat chest x-ray on the morning of 01/25/19 showed the pacemaker with good placement and she was subsequently cleared for discharge to home. DISCHARGE DIAGNOSES: 1. Pacemaker lead malfunction with revision. 2. Hypertension. 3. Hyperlipidemia. DISCHARGE MEDICATIONS: Include: 1. Flonase 1 spray both nares daily. 2. Zyrtec 10 mg in the morning. 3. Multivitamin 1 tablet daily. 4. Tylenol 1 g p.o. b.i.d. as needed. 5. Lisinopril 10 mg p.o. daily. 6. Lipitor 80 mg p.o. daily. 7. Low-dose aspirin 81 mg daily. 8. Vitamin E 1000 units p.o. daily. 9. Vitamin D 1600 units p.o. daily. 10. Budesonide 9 mg p.o. in the morning. 11. Calcium/vitamin D supplement 1 tab p.o. daily. 12. Pepcid 40 mg at bedtime. 13. Tums every 3 hours as needed. 14. Omeprazole 40 mg daily. 15. Nizoral topical cream 2 times a day as needed. 16. Advair inhaler 2 puffs inhaled 2 times a day. 17. Diclofenac topical b.i.d. as needed. 18. Lexapro 5 mg daily. 19. Vitamin D 50,000 units p.o. weekly. REVIEW OF SYSTEMS: On the day of discharge, the patient denies any fever, fatigue, or chills. No shortness of breath, no chest pain. No nausea, no vomiting. No diaphoresis. No abdominal pains. No urinary complaints. No arthralgias or myalgias. Pain to the left chest insertion site that is tender to touch and with movement, but otherwise she has no further constitutional complaints. PHYSICAL EXAMINATION: The patient is awake, alert, in no acute distress. Vital signs are blood pressure 146/40, heart rate 60, respiratory rate 20, O2 saturation 96% on room air with a temperature of 97.5. HEENT: The patient is atraumatic, normocephalic. PERRLA. Nonicteric sclerae. Oral mucosa is moist. Dentition is poor. Tongue is midline. Neck is supple, nontender. No JVD noted and no carotid bruits auscultated. Cardiovascular: S1, S2 present. Rate and rhythm are regular. She is AV pacing on telemetry with no ectopy. No murmurs, gallops, or rubs noted. Left chest wall is tender to palpation. Dressing to the left chest is clean, dry, and intact. There was no hematoma, erythema, or drainage noted from her dressing. Lungs are clear bilaterally to auscultation with no wheezing, rhonchi, or rales. Abdomen is soft, nontender, and nondistended. Positive bowel sounds in all 4 quadrants. No hepatosplenomegaly noted. is deferred. Musculoskeletal: There is no clubbing, no cyanosis, no edema. +2 distal pulses palpable. Full range of motion. Gross motor and sensation are intact. She has a steady gait unassisted. Neurologic: Grossly intact with no focal deficits. Psychiatric: She is cooperative and appropriate. DIAGNOSTIC STUDIES/LAB DATA: WBCs 8.3, RBCs 4.04, hemoglobin 12.6, hematocrit 38, platelets 183. Sodium 138, potassium 4.1, chloride 104, CO2 of 26, BUN 16, creatinine 0.71, GFR 82.1, glucose 105. Hemoglobin A1c 5.7. Calcium 9.5, magnesium 2.1. Total bilirubin 0.70, AST 19, ALT 21, alk phos 44. Total creatine kinase 130; CK-MB 4.4; troponin 0.05, 0.01 and 0.01; CRP 7.44; BNP 52. Total protein 7.1, albumin 4.4, globulin 2.7, albumin/globulin ratio 1.6. Total triglycerides 158, total cholesterol 144, LDL of 72, HDL is 40.4. Imaging: Chest x-ray on 01/22/19 at admission shows no active cardiopulmonary disease. Repeat chest x-ray on 01/25/19 shows still no active cardiopulmonary disease and left chest wall pacemaker in place. DISPOSITION: The patient was discharged to home in the care of her family in stable condition. DIET: Heart-healthy as tolerated. ACTIVITY: Left arm restriction per Cardiology recommendations. No lifting, bending, twisting, or driving. FOLLOWUPS: The patient was instructed to follow up with Dr. Norton in the next [address] Wesley Fernandez, she has an appointment on 01/28/19. CONDITION: The patient was discharged in stable condition. The patient stated her understanding of her discharge instructions and followups. TIME SPENT: Thirty-five minutes on discharge planning. GREGOR BONILLA, DARRYL [id number]/[facility] #: [id number] [facility]
== END 2019-01-25 13:45 | disposition home or self-care (01) | DRG 262 ==
LOC: ED 09:15 → MEDTELE 13:16 → OBSVTOIN 01-23 16:00
PROVIDERS: ADMIT Internal Medicine; ATTEND Internal Medicine
PROC: 02WA3MZ Revision of Cardiac Lead in Heart, Percutaneous Approach (ICD-10-PCS; principal; 2019-01-24 13:00)
PROC: 4B02XSZ Measurement of Cardiac Pacemaker, External Approach (ICD-10-PCS; 2019-01-25)
DX: T82.110A Breakdown (mechanical) of cardiac electrode, initial encounter (principal); I49.5 Sick sinus syndrome; E78.5 Hyperlipidemia, unspecified; I10 Essential (primary) hypertension; I49.8 Other specified cardiac arrhythmias; J44.9 Chronic obstructive pulmonary disease, unspecified; K21.9 Gastro-esophageal reflux disease without esophagitis; K52.839 Microscopic colitis, unspecified; E66.9 Obesity, unspecified; F32.9 Major depressive disorder, single episode, unspecified; Z96.651 Presence of right artificial knee joint; Z68.38 Body mass index [BMI] 38.0-38.9, adult; Z87.891 Personal history of nicotine dependence; Z79.1 Long term (current) use of non-steroidal anti-inflammatories (NSAID); Z79.82 Long term (current) use of aspirin; Z79.899 Other long term (current) drug therapy; Z91.040 Latex allergy status; Z88.8 Allergy status to other drugs, medicaments and biological substances; Z91.048 Other nonmedicinal substance allergy status; Z82.49 Family history of ischemic heart disease and other diseases of the circulatory system; Z82.3 Family history of stroke; Z83.3 Family history of diabetes mellitus; Z83.49 Family history of other endocrine, nutritional and metabolic diseases; Z80.3 Family history of malignant neoplasm of breast
CPT/HCPCS: 33215; 36415; 71045; 71046; 78451; 80053; 80061; 82550; 82553; 83036; 83735; 83880; 84484; 85025; 85610; 86140; 93005; 93306; 94640; 99156; 99157; 99284; A9270-GY; A9502; G0378; J0690; J1644; J2250; J3010

== ENCOUNTER 2020-04-29 05:48 | Observation (INO) ==
[2020-04-29] MEDS ORDERED: Lactated Ringers 1000 ml BAG 1,000 ML IV SCH (06:00)
[2020-04-29] MEDS ORDERED: Sodium Citrate/Citric Acid LIQ 15 ML UDC PO ONE (06:00)
[2020-04-29] MEDS ORDERED: Buffered Lidocaine 1% SYRIN 1 ml INTRADERM ONE (06:00)
[2020-04-29] MEDS ORDERED: Sodium Citrate/Citric Acid LIQ 15 ML UDC ONE (07:40)
[2020-04-29] MEDS ORDERED: Clindamycin 900 MG/D5W BAG 900 MG/50 ML BAG IVPB ONE (07:41)
[2020-04-29] MEDS ORDERED: Midazolam 5 mg/5 ml VIAL 1 mg/ml 5 ml VIAL (5 mg) ONE ×2 (08:35)
[2020-04-29] MEDS ORDERED: Dexamethasone IV 4 MG/ML VIAL 1 ml VIAL ONE (08:35)
[2020-04-29] MEDS ORDERED: Lidocaine 1% MPF 5 ML VIAL ONE (08:38)
[2020-04-29] MEDS ORDERED: ROPIVACAINE 5 MG/ML 30 ML BTL (0.5%) ONE ×2 (08:38→09:10)
[2020-04-29] MEDS ORDERED: fentaNYL 100 mcg/2 ml 50 MCG/ML VIAL ONE (09:47)
[2020-04-29] MEDS ORDERED: Propofol 10 MG/ML 20 ML BTL ONE ×2 (10:16→10:21)
[2020-04-29] MEDS ORDERED: Ondansetron 4 mg VIAL 2 MG/ML 2 ml VIAL ONE (10:16)
[2020-04-29] MEDS ORDERED: fentaNYL 100 mcg/2 ml 50 MCG/ML VIAL IV PRN (10:50)
[2020-04-29] MEDS ORDERED: Ondansetron 4 mg VIAL 2 MG/ML 2 ml VIAL IV PRN ×2 (10:50→12:04)
[2020-04-29] MEDS ORDERED: Naloxone 0.4 mg VIAL 0.4 mg/ml 1 ml VIAL IV PRN (10:50)
[2020-04-29] MEDS ORDERED: HYDROmorphone 1 MG/1 ML SYRINGE IV PRN (10:50)
[2020-04-29] MEDS ORDERED: Morphine 2 MG/ML SYRINGE IV PRN (12:04)
[2020-04-29] MEDS ORDERED: Ondansetron ODT 4 mg TAB 4 MG TAB PO PRN (12:04)
[2020-04-29] MEDS ORDERED: diPHENhydraMINE 25 mg TAB PO PRN (12:04)
[2020-04-29] MEDS ORDERED: Magnesium Hydroxide LIQ 30 ML UDC PO PRN (12:04)
[2020-04-29] MEDS ORDERED: diPHENhydraMINE IV 50 MG/ML 1 ml VIAL (BENADRYL) IV PRN (12:04)
[2020-04-29] MEDS ORDERED: Lactulose 30 ml UDC PO PRN (12:04)
[2020-04-29] MEDS ORDERED: Albuterol HFA INHALER 8 gm MDI INH PRN (13:57)
[2020-04-29] MEDS: Lactated Ringers 1000 ml BAG 1,000 ML IV SCH ×2 (14:58→23:55)
[2020-04-29] MEDS: ceFAZolin 1 GM ADVAN 1 GM in NS 0.9% 50 ML 50 ML IVPB SCH ×2 (16:01→23:58)
[2020-04-29] MEDS: oxyCODONE/Acetamin 5/325 mg TAB PO PRN ×2 (16:04→19:42)
[2020-04-29] MEDS: Mometasone/Formoter 200/5 MDI INH SCH (20:26)
[2020-04-29] MEDS: Magnesium Hydroxide LIQ 30 ML UDC PO SCH (21:48)
[2020-04-30] MEDS: oxyCODONE/Acetamin 5/325 mg TAB PO PRN ×2 (05:59→11:03)
[2020-04-30 06:19] LABS: Hematocrit 36 % (35-47); Mean Platelet Volume 9.1 fL (7.4-10.4); Platelet Count 193 10^3/uL (150-450)
[2020-04-30 06:38] LABS: BUN/Creatinine Ratio 24.1 (8-20); EGFR African American 135.8 (>60); EGFR Non-African American 112.3 (>60); Potassium 3.7 mmol/L (3.5-5.0)
[2020-04-30] MEDS: Mometasone/Formoter 200/5 MDI INH SCH (07:21)
[2020-04-30] MEDS: ceFAZolin 1 GM ADVAN 1 GM in NS 0.9% 50 ML 50 ML IVPB SCH (07:35)
[2020-04-30] MEDS ORDERED: Vitamin THERAPEUTIC TAB PO SCH (09:00)
[2020-04-30] MEDS ORDERED: BUDESONIDE 3 MG PO SCH (09:00)
[2020-04-30] MEDS: Magnesium Hydroxide LIQ 30 ML UDC PO SCH (09:44)
[2020-04-30 11:49] VITALS: BP 107/44
== END 2020-04-30 13:05 | disposition home or self-care (01) ==
LOC: SSU 05:48 → OR 05:48
PROVIDERS: ADMIT Orthopaedic Surgery Adult Reconstructive Orthopaedic Surgery; ATTEND Orthopaedic Surgery Adult Reconstructive Orthopaedic Surgery

== ENCOUNTER 2023-02-03 17:21 | Inpatient (IN) ==
[2023-02-03] MEDS ORDERED: Piperacillin/Tazobac 3.375 BAG 3.375 GM/100 ML BAG IV ONE (17:40)
[2023-02-03] MEDS ORDERED: NS 0.9% 1000 ml BAG 1,000 ML IV ONE ×3 (17:41→21:02)
[2023-02-03 17:50] LABS: PCO2 Arterial 29 mmHg (35-45); PO2 Arterial 62 mmHg (80-100)
[2023-02-03 18:03] LABS: ABS Lymphocytes 1.1 10^3/uL (1.0-4.8); ABS Monocytes 0.4 10^3/uL (0.0-0.9); ABS Neutrophils 8.8 10^3/uL (1.5-7.6); ABS Nucleated RBC 0.01 10^3/ul; Hemoglobin 14.9 g/dL (11.5-14.3); Lymphocyte % 10.8 %; Mean Corpuscular Hemoglobin 31.2 pg (27-33); Mean Corpuscular Hgb Conc 33.8 g/dL (31-36); Mean Corpuscular Volume 92.2 fL (80-97); Mean Platelet Volume 8.6 fL (7.5-11.2); Platelet Count 201 10^3/uL (150-450); Red Blood Count 4.77 10^6/uL (3.63-4.92); Red Cell Distribution Width 13.7 % (12-17); White Blood Count 10.4 10^3/uL (3.8-11.8)
[2023-02-03 18:11] LABS: Activated Partial Thrombo Time 33.3 seconds (26.0-38.0); INR 1.14 (0.83-1.13)
[2023-02-03] MEDS ORDERED: Iodixanol (CONTRAST) 320 MG/ML 100 ML SDV IV ONE (18:19)
[2023-02-03 18:26] LABS: Albumin 4.5 g/dL (3.2-5.2); Albumin/Globulin Ratio 1.4 (1-3); C Reactive Protein 103.23 mg/L (<8.01); Calcium 9.6 mg/dL (8.6-10.3); Creatinine, Serum 0.68 mg/dL (0.51-0.95); Globulin 3.3 g/dL (2-4); Potassium 2.8 mmol/L (3.5-5.0); Total Bilirubin 0.8 mg/dL (0.2-1.0); Total Protein 7.8 g/dL (6.4-8.9); eGFR CKD-EPI 93.1 (>60)
[2023-02-03] MEDS ORDERED: Acetaminophen IV 1 GM/100ML 1,000 MG/100 ML BAG IV ONE (18:41)
[2023-02-03 18:44] LABS: Urine Appearance Clear; Urine Bilirubin Negative (Negative); Urine Blood 2+ (Negative); Urine Color Yellow; Urine Glucose Negative (Negative); Urine Ketones 1+ (Negative); Urine Nitrite Negative (Negative); Urine Protein 2+(100 mg/dL) (Negative); Urine Specific Gravity 1.018 (1.002-1.030); Urine Urobilinogen Negative (Negative)
[2023-02-03] MEDS: KCL 20 MEQ/100 ML IVPREMIX 20 MEQ/100 ML BAG IV SCH ×2 (18:51→21:25)
[2023-02-03 18:54] LABS: Urine Bacteria 1+ (Absent); Urine Red Blood Cell 2+(6-10/hpf) (Absent); Urine White Blood Cell Trace(0-5/hpf) (Absent)
[2023-02-03 19:44] LABS: High Sensitivity Troponin 1 Hr 168 pg/mL (<15)
[2023-02-03] MEDS ORDERED: Ondansetron 4 mg VIAL 2 MG/ML 2 ml VIAL IV PRN (19:52)
[2023-02-03] MEDS ORDERED: methylPREDNISolone SOD SUCC 40 mg/ml 1 ml VIAL IV SCH (20:06)
[2023-02-03] MEDS ORDERED: Fluticasone NASAL SPRAY 50MCG 16 gm SPRAY BTL BOTH NARES PRN (20:07)
[2023-02-03] MEDS ORDERED: Dextrose 50% Syringe 50 ml 25 GM/50 ML SYRINGE IV PUSH PRN (20:08)
[2023-02-03] MEDS ORDERED: Hydrocortisone INJ 100 MG/2ML 2 ML VIAL IV ONE (20:13)
[2023-02-03] MEDS ORDERED: NS 0.9% 1000 ml BAG 1,000 ML IV SCH (20:15)
[2023-02-03 20:21] LABS: Magnesium < 0.5 mg/dL (1.9-2.7)
[2023-02-03] MEDS ORDERED: Magnesium Sulf 4 GM/100 ML IV 4,000 MG/100 ML BAG IVPB ONE (20:22)
[2023-02-03] MEDS ORDERED: Remdesivir 100 mg Vial 200 MG in NS 0.9% 250 ml 210 ML IV ONE (20:30)
[2023-02-03] MEDS: Mometasone/Formoter 100/5 MDI INH SCH (21:05)
[2023-02-03] MEDS: Enoxaparin 40 MG/0.4 ML SYR SUBCUT SCH (21:25)
[2023-02-03] MEDS: Norepinephrine 4 MG/250mL D5W 4,000 MCG/250 ML BAG IV SCH (22:26)
[2023-02-04] MEDS: Norepinephrine 4 MG/250mL D5W 4,000 MCG/250 ML BAG IV SCH (00:35)
[2023-02-04] MEDS ORDERED: Hydrocortisone INJ 100 MG/2ML 2 ML VIAL IV SCH (04:30)
[2023-02-04 05:26] LABS: ABS Lymphocytes 0.3 10^3/uL (1.0-4.8); ABS Monocytes 0.2 10^3/uL (0.0-0.9); ABS Neutrophils 7.2 10^3/uL (1.5-7.6); ABS Nucleated RBC 0.01 10^3/ul; Hemoglobin 13.2 g/dL (11.5-14.3); Lymphocyte % 4.4 %; Mean Corpuscular Hemoglobin 31.3 pg (27-33); Mean Corpuscular Hgb Conc 33.8 g/dL (31-36); Mean Corpuscular Volume 92.6 fL (80-97); Mean Platelet Volume 8.4 fL (7.5-11.2); Nucleated Red Blood Cells % 0.1 %/100WBC (0.0-0.8); Platelet Count 173 10^3/uL (150-450); Red Blood Count 4.22 10^6/uL (3.63-4.92); White Blood Count 7.8 10^3/uL (3.8-11.8)
[2023-02-04 05:44] LABS: Albumin 3.4 g/dL (3.2-5.2); Albumin/Globulin Ratio 1.4 (1-3); Calcium 7.8 mg/dL (8.6-10.3); Creatinine, Serum 0.68 mg/dL (0.51-0.95); Globulin 2.4 g/dL (2-4); Potassium 3.1 mmol/L (3.5-5.0); Total Bilirubin 0.5 mg/dL (0.2-1.0); Total Protein 5.8 g/dL (6.4-8.9); eGFR CKD-EPI 93.1 (>60)
[2023-02-04] MEDS: KCL 20 MEQ/100 ML IVPREMIX 20 MEQ/100 ML BAG IV SCH ×2 (06:10→09:39)
[2023-02-04] MEDS: CMCS: Budesonide 3 mg CAP (NF) PO SCH (08:22)
[2023-02-04] MEDS: Cholecalciferol (VIT D3) 1,000 unit TAB PO SCH (08:22)
[2023-02-04] MEDS: Aspirin EC 81 mg TAB.EC (enteric coated) PO SCH (08:22)
[2023-02-04] MEDS: Mometasone/Formoter 100/5 MDI INH SCH ×2 (08:48→21:04)
[2023-02-04] MEDS ORDERED: cefTRIAXone 1 gm/50 mL D5W 1 GM/50 ML BAG IV SCH (09:00)
[2023-02-04] MEDS: Potassium EFFERVES 25 meq TAB PO SCH ×2 (11:36→15:58)
[2023-02-04] MEDS ORDERED: Remdesivir 100 mg Vial 100 MG in NS 0.9% 250 ml 230 ML IV SCH (21:00)
[2023-02-04] MEDS: Enoxaparin 40 MG/0.4 ML SYR SUBCUT SCH (21:59)
[2023-02-05] MEDS: Mometasone/Formoter 100/5 MDI INH SCH ×2 (07:21→19:28)
[2023-02-05] MEDS: Aspirin EC 81 mg TAB.EC (enteric coated) PO SCH (07:53)
[2023-02-05] MEDS: Cholecalciferol (VIT D3) 1,000 unit TAB PO SCH (07:53)
[2023-02-05] MEDS: CMCS: Budesonide 3 mg CAP (NF) PO SCH (07:54)
[2023-02-05] MEDS ORDERED: Hydrocortisone INJ 100 MG/2ML 2 ML VIAL IV SCH (09:00)
[2023-02-05 09:43] LABS: Albumin 3.4 g/dL (3.2-5.2); Albumin/Globulin Ratio 1.3 (1-3); Calcium 8.3 mg/dL (8.6-10.3); Creatinine, Serum 0.59 mg/dL (0.51-0.95); Globulin 2.6 g/dL (2-4); Potassium 3.6 mmol/L (3.5-5.0); Total Bilirubin 0.5 mg/dL (0.2-1.0); eGFR CKD-EPI 96.3 (>60)
[2023-02-05] MEDS: Enoxaparin 40 MG/0.4 ML SYR SUBCUT SCH (20:23)
[2023-02-06 06:01] LABS: ABS Lymphocytes 0.8 10^3/uL (1.0-4.8); ABS Monocytes 0.3 10^3/uL (0.0-0.9); ABS Neutrophils 1.6 10^3/uL (1.5-7.6); Eosinophil % 0.5 %; Hematocrit 35.4 % (35-45); Hemoglobin 12.1 g/dL (11.5-14.3); Mean Corpuscular Hemoglobin 31.5 pg (27-33); Mean Corpuscular Hgb Conc 34.2 g/dL (31-36); Mean Corpuscular Volume 92.2 fL (80-97); Nucleated Red Blood Cells % 0.1 %/100WBC (0.0-0.8); Platelet Count 128 10^3/uL (150-450); Red Blood Count 3.85 10^6/uL (3.63-4.92); Red Cell Distribution Width 13.9 % (12-17); White Blood Count 2.7 10^3/uL (3.8-11.8)
[2023-02-06] MEDS: Mometasone/Formoter 100/5 MDI INH SCH ×2 (06:17→19:42)
[2023-02-06 06:21] LABS: Albumin 3.4 g/dL (3.2-5.2); Albumin/Globulin Ratio 1.4 (1-3); Calcium 8.4 mg/dL (8.6-10.3); Creatinine, Serum 0.6 mg/dL (0.51-0.95); Globulin 2.5 g/dL (2-4); Magnesium 2.1 mg/dL (1.9-2.7); Potassium 3.4 mmol/L (3.5-5.0); Total Bilirubin 0.5 mg/dL (0.2-1.0); Total Protein 5.9 g/dL (6.4-8.9); eGFR CKD-EPI 95.9 (>60)
[2023-02-06] MEDS ORDERED: Potassium Chlor 20 meq TAB.ER PO ONE (07:27)
[2023-02-06] MEDS: Aspirin EC 81 mg TAB.EC (enteric coated) PO SCH (08:33)
[2023-02-06] MEDS: Cholecalciferol (VIT D3) 1,000 unit TAB PO SCH (08:34)
[2023-02-06] MEDS: CMCS: Budesonide 3 mg CAP (NF) PO SCH (08:38)
[2023-02-06] MEDS ORDERED: Hydrocortisone INJ 100 MG/2ML 2 ML VIAL IV ONE (09:00)
[2023-02-06] MEDS: Enoxaparin 40 MG/0.4 ML SYR SUBCUT SCH (19:43)
[2023-02-07] MEDS: Mometasone/Formoter 100/5 MDI INH SCH (07:30)
[2023-02-07 07:33] LABS: ABS Lymphocytes 1.1 10^3/uL (1.0-4.8); ABS Monocytes 0.4 10^3/uL (0.0-0.9); ABS Neutrophils 1.5 10^3/uL (1.5-7.6); Hematocrit 36.2 % (35-45); Hemoglobin 12.2 g/dL (11.5-14.3); Lymphocyte % 36.3 %; Mean Corpuscular Hgb Conc 33.6 g/dL (31-36); Mean Corpuscular Volume 92.3 fL (80-97); Mean Platelet Volume 8.7 fL (7.5-11.2); Platelet Count 146 10^3/uL (150-450); Red Blood Count 3.92 10^6/uL (3.63-4.92)
[2023-02-07 07:50] LABS: Albumin 3.5 g/dL (3.2-5.2); Albumin/Globulin Ratio 1.3 (1-3); Calcium 8.7 mg/dL (8.6-10.3); Creatinine, Serum 0.61 mg/dL (0.51-0.95); Globulin 2.6 g/dL (2-4); Magnesium 2.1 mg/dL (1.9-2.7); Potassium 3.5 mmol/L (3.5-5.0); Total Bilirubin 0.5 mg/dL (0.2-1.0); Total Protein 6.1 g/dL (6.4-8.9); eGFR CKD-EPI 95.5 (>60)
[2023-02-07] MEDS: Aspirin EC 81 mg TAB.EC (enteric coated) PO SCH (07:55)
[2023-02-07] MEDS: Cholecalciferol (VIT D3) 1,000 unit TAB PO SCH (07:55)
[2023-02-07] MEDS: CMCS: Budesonide 3 mg CAP (NF) PO SCH (07:56)
[2023-02-07 12:18] VITALS: BP 124/87
== END 2023-02-07 12:53 | disposition home or self-care (01) | DRG 871 ==
LOC: ED 17:21 → SUATTDRO 19:52 → EDHOLD 19:52 → ICU 23:12 → MEDTELE 02-04 00:53
PROVIDERS: ADMIT Student in an Organized Health Care Education/Training Program; ATTEND Student in an Organized Health Care Education/Training Program